=== PATIENT | male | born 1980 | race Caucasian/White ===

== ENCOUNTER 2016-12-30 11:41 | Inpatient (IN) | payer BC ==
[~2016-12-30] VITALS: Ht 182.9 cm; Wt 103.8 kg
[2016-12-30] VITALS (24 sets, daily range): BP systolic 110–142; BP diastolic 70–108; PULSE 70–118; TEMP 36.6–37.1; O2SAT 93–97; Ht 182.9 cm; Wt 103.8 kg
[~2016-12-30 11:41] MED LIST: OXYC1TAB3 PO
[2016-12-30] MEDS ORDERED: ONDANSETRON INJ 2 MG/ML 2 ML VIAL IV STA (11:57)
[2016-12-30] MEDS ORDERED: SODIUM CHLORIDE 0.9% 1000ML 1,000 ML IV STA (11:57)
[2016-12-30] MEDS ORDERED: ASPIRIN 325 MG ECTAB PO STA (11:57)
[2016-12-30] MEDS ORDERED: MIDAZOLAM HCL 1 MG/ML 2ML VIAL ONE ×4 (11:59→14:29)
[2016-12-30] MEDS ORDERED: HEPARIN SOD (PORCINE) 1000 UNIT/ML 10 ML VIAL ONE (11:59)
[2016-12-30] MEDS ORDERED: NiCARDipine HCL INJ 2.5 MG/ML 10 ML AMP ONE (11:59)
[2016-12-30] MEDS ORDERED: FENTANYL CITRATE INJ 50 MCG/1 ML 2 ML VIAL ONE ×3 (11:59→13:43)
[2016-12-30] MEDS ORDERED: NITROGLYCERIN OINT 2% 1GM PACKET EXT ONE (12:00)
[2016-12-30] MEDS ORDERED: NITROGLYCERIN/D5W 100MCG/ML 20ML SYR ONE (12:00)
--- NOTE | 2016-12-30 12:01 | EMERGENCY ROOM VISIT NOTE ---
History Report prepared by Deepika: Marylou Camacho Under the Supervision of: Dr. Keisha Mcarthur D.O. First contact with patient: 11:42 Stated Complaint: heart alert History of Present Illness The patient is a 36 year old male who presents to the Emergency Room with complaints of constant chest burning and tightness beginning this morning. The patient states that 4 days ago he felt chest pain and tightness for 6 hours and he thought that it was indigestion. He notes that he has a history of acid reflux and took a Jeannette without relief of his symptoms. The patient reports that the pain went away after about 6 hours but that night he notes that he felt feverish. Today the patient states that he is feeling chest pain and tightness again that is similar to his pain 4 days ago. He complains of left arm numbness , lightheadedness, back tightness, nausea, and some shortness of breath that he believes is related to his anxiety. He denies any neck pain, recent illness, cough, cold, and fever. The patient notes that he had back tightness and a muscle spasm yesterday and he reports that he was seen for his pain and received shots that relieved his pain. The patient reports no family or personal history of cardiac issues. Denies recent trauma. No recent URI sx or other illness. Source of History: patient Onset: this morning Position: chest Quality: burning, other (tightness) Timing: constant Associated Symptoms: + SOB, + nausea, No fevers, No cough, No neck pain Note: He complains of left arm numbness, lightheadedness, back tightness. He denies any recent illness and cold. Review of Systems See HPI for pertinent positives & negatives. A total of 10 systems reviewed and were otherwise negative. Past Medical & Surgical Medical Problems: (1) Acute myocardial infarction involving left anterior descending (LAD) coronary artery (2) Acute myocardial infarction involving right coronary artery Family History Diabetes mellitus FHx: cancer Social History Marital Status: single Occupation Status: unemployed Current/Historical Medications Scheduled Aspirin (Aspirin EC Low Dose), 81 MG PO QAM Atorvastatin (Atorvastatin Calcium), 80 MG PO QAM Lisinopril (Lisinopril), 5 MG PO QAM Metoprolol Succinate (Metoprolol Succinate ER), 200 MG PO QAM Pantoprazole (Pantoprazole Sodium), 40 MG PO DAILY Rivaroxaban (Xarelto), 20 MG PO DAILY Spironolactone (Spironolactone), 25 MG PO QAM Ticagrelor (Brilinta), 90 MG PO BID Scheduled PRN Nitroglycerin (Nitrostat), 0.4 MG SL UD PRN for Chest Pain Allergies Coded Allergies: No Known Allergies (Unverified , NONE, 04/18/09) Physical Exam Vital Signs Date Time Temp Pulse Resp B/P (MAP) Pulse Ox O2 Delivery O2 Flow Rate FiO2 12/30/16 14:50 112 14 149/86 98 Room Air 12/30/16 14:35 108 10 135/91 97 Mask 6 12/30/16 12:10 99 18 139/93 98 Room Air 12/30/16 12:05 100 14 145/92 96 Room Air 12/30/16 11:56 98 Room Air 12/30/16 11:56 98 Room Air 12/30/16 11:56 36.5 99 18 146/92 97 Room Air 12/30/16 11:55 104 Physical Exam GENERAL: alert, well appearing, well nourished, no distress, non-toxic EYE EXAM: normal conjunctiva, PERRL and EOM's grossly intact OROPHARYNX: no exudate, no erythema, lips, buccal mucosa, and tongue normal and mucous membranes are moist NECK: supple, no nuchal rigidity, no adenopathy, non-tender LUNGS: Clear to auscultation. Normal chest wall mechanics HEART: no murmurs, S1 normal and S2 normal ABDOMEN: abdomen soft, non-tender, normo-active bowel sounds, no masses, no rebound or guarding. BACK: Back is symmetrical on inspection and there is no deformity, no midline tenderness, no CVA tenderness. SKIN: no rashes and no bruising UPPER EXTREMITIES: upper extremities are grossly normal. LOWER EXTREMITIES: No pitting edema. NEURO EXAM: Normal sensorium, cranial nerves II-XII grossly intact, normal speech, no gross weakness of arms, no gross weakness of legs. Medical Decision & Procedures ER Provider Diagnostic Interpretation: Radiology results have been interpreted by the radiologist and reviewed by me. CHEST ONE VIEW PORTABLE FINDINGS: Low lung volumes. Mild elevation of the right hemidiaphragm. The lungs are clear. No pleural effusions. No pneumothorax. The heart is borderline enlarged. IMPRESSION: Borderline enlargement of the cardiac silhouette. This could be due to the low lung volumes. Electronically signed by: Rodger Morales M.D. 12/30/2016 12:14 PM Dictated Date/Time: 12/30/2016 12:13 PM Laboratory Results Test 12/30/16 11:40 12/30/16 11:56 12/30/16 11:58 12/30/16 14:02 Prothrombin Time 11.4 SECONDS (9.0-12.0) Prothromb Time International Ratio 1.1 (0.9-1.1) Activated Partial Thromboplast Time 26.5 SECONDS (21.0-31.0) Partial Thromboplastin Ratio 1.0 Bedside Hemoglobin 16.0 g/dl (14.0-18.0) Bedside Hematocrit 47 % (42-52) Bedside Sodium 140 mEq/L (135-144) Bedside Potassium 4.4 mEq/L (3.3-5.0) Bedside Chloride 104 mEq/L (101-112) Bedside Total CO2 25 mEq/l (24-31) Bedside Blood Urea Nitrogen 17 mg/dl (7-18) Bedside Creatinine 1.0 mg/dl (0.6-1.3) Bedside Glucose (other) 128 mg/dl (70-99) Bedside Ionized Calcium (Myriam) 1.02 mmol/l (1.12-1.32) Bedside Troponin I 5.630 ng/ml (0-0.045) Kaolin Activated Coagulation Time 301 SECONDS (94-140) Date/Time Source Procedure Growth Status 12/30/16 00:00 Nasal MRSA DNA Surveillance Screen - Final Specimen Negative for MRSA by DNA Probe Complete Laboratory results per my review. Medications Administered Medications (Trade) Dose Ordered Sig/Jeremy Route Start Time Stop Time Status Last Admin Dose Admin Heparin Sodium (Porcine) (Heparin Iv Bolus) 10,000 unit STK-MED ONCE .ROUTE 12/30/16 11:59 12/30/16 12:00 DC 12/30/16 11:59 10,000 UNIT Fentanyl Citrate (Fentanyl Inj) 100 mcg STK-MED ONCE .ROUTE 12/30/16 11:59 12/30/16 12:00 DC 12/30/16 11:59 100 MCG Midazolam HCl (Versed Inj) 2 mg STK-MED ONCE .ROUTE 12/30/16 11:59 12/30/16 12:00 DC 12/30/16 11:59 2 MG Sodium Chloride 1,000 ml @ 125 mls/hr Q8H STAT IV 12/30/16 11:57 12/31/16 12:26 DC 12/30/16 11:57 125 MLS/HR Ondansetron HCl (Zofran Inj) 4 mg NOW STAT IV 12/30/16 11:57 12/30/16 12:02 DC 12/30/16 11:57 4 MG Heparin Sodium (Porcine) (Heparin Iv Bolus) 10,000 unit STK-MED ONCE .ROUTE 12/30/16 12:31 12/30/16 12:32 DC 12/30/16 12:31 10,000 UNIT Fentanyl Citrate (Fentanyl Inj) 100 mcg STK-MED ONCE .ROUTE 12/30/16 12:35 12/30/16 12:36 DC 12/30/16 12:35 100 MCG Midazolam HCl (Versed Inj) 2 mg STK-MED ONCE .ROUTE 12/30/16 12:36 12/30/16 12:37 DC 12/30/16 12:36 2 MG Eptifibatide (Integrilin Inj) 20 mg STK-MED ONCE IV 12/30/16 12:45 12/30/16 12:46 DC 12/30/16 12:45 20 MG Eptifibatide (Integrilin Inj) 20 mg STK-MED ONCE IV 12/30/16 12:45 12/30/16 12:46 DC 12/30/16 12:45 20 MG Eptifibatide (Integrilin Inj) 75 mg STK-MED ONCE IV 12/30/16 12:46 12/30/16 12:47 DC 12/30/16 12:46 75 MG Metoprolol Tartrate (Lopressor Iv) 5 mg STK-MED ONCE .ROUTE 12/30/16 13:06 12/30/16 13:07 DC 12/30/16 13:06 5 MG Midazolam HCl (Versed Inj) 2 mg STK-MED ONCE .ROUTE 12/30/16 13:16 12/30/16 13:17 DC 12/30/16 13:16 2 MG Fentanyl Citrate (Fentanyl Inj) 100 mcg STK-MED ONCE .ROUTE 12/30/16 13:43 12/30/16 13:44 DC 12/30/16 13:43 100 MCG Nitroglycerin (Nitrostat Tab) 0.4 mg UD PRN SL 12/30/16 15:00 01/01/17 16:31 DC 12/30/16 20:38 0.4 MG Sodium Chloride 1,000 ml @ 100 mls/hr Q10H IV 12/30/16 15:00 12/31/16 12:26 DC 12/31/16 09:31 100 MLS/HR ECG Indication: chest pain Rate (beats per minute): 98 Rhythm: sinus rhythm Findings: ST elevation (V2-V6 and in Lead 2,3 and AVF), other (normal axis, normal intervals) ED Course 1142: The patient was evaluated in room A1. A complete history and physical exam was performed. 1157: Zofran Inj 4mg IV, Sodium Chloride 1000 ml @ 125 mls/hr IV. 1200: Nitroglycerin 1 inch EXT. 1204: I reevaluated the patient. The nursing staff confirmed that the patient received [address] Voss of Cardiology is at the patient's bedside. 1209: The patient will be going to the catheterization lab. Dr. Voss will evaluate the patient for further management. 1215: Pt being transferred to color laboratory technician. Medical Decision Differential diagnosis: Etiologies such as cardiac ischemia, aortic dissection, pulmonary embolism, pneumonia, pneumothorax, musculoskeletal, infections, pericarditis, myocarditis , esophageal rupture, gastrointestinal, as well as others were entertained. Pt with obvious EKG changes and concerning for for ACS. Heart alert called based on EMS report and EKG. Pt with stable VS here and aware of concern for STEMI. Dr. Voss to bedside for evaluation and pt taken to color laboratory technician. Consults Time Called: 1205 Consulting Physician: Dr. Voss - Cardiology Returned Call: 1209 The patient will be going to the catheterization lab. Dr. Voss will evaluate the patient for further management. Impression Primary Impression: STEMI (ST elevation myocardial infarction) Additional Impression: Chest pain Critical Care I have personally spent greater than 35 minutes of critical care time in the direct management of this patient. This includes bedside care, interpretation of diagnostic studies, and testing, discussion with consultants, patient, and family members, and other required patient management activities. This 35 minutes is in excess of all separately billable procedures. Involved system - cardiovascular Scribe Attestation The scribe's documentation has been prepared under my direction and personally reviewed by me in its entirety. I confirm that the note above accurately reflects all work, treatment, procedures, and medical decision making performed by me. Departure Information Dispostion Being Evaluated By Hospitalist Prescriptions Pantoprazole (Pantoprazole Sodium) 40 Mg Tab 40 MG PO DAILY for 90 Days, #90 TAB 3 Refills Prov: David Voss M.D. 01/01/17 Aspirin (Aspirin EC Low Dose) 81 Mg Ectab 81 MG PO QAM for 90 Days, #90 3 Refills Prov: David Voss M.D. 01/01/17 Spironolactone (Spironolactone) 25 Mg Tab 25 MG PO QAM for 90 Days, #90 TAB 3 Refills Prov: David Voss M.D. 01/01/17 Nitroglycerin (Nitrostat) 0.4 Mg/1 Tab Subl 0.4 MG SL UD Y for Chest Pain for 25 Days Prov: David Voss M.D. 01/01/17 Metoprolol Succinate (Metoprolol Succinate ER) 50 Mg Tabcr 200 MG PO QAM for 90 Days, #90 3 Refills Prov: David Voss M.D. 01/01/17 Lisinopril (Lisinopril) 5 Mg Tab 5 MG PO QAM for 90 Days, #90 TAB 3 Refills Prov: David Voss M.D. 01/01/17 Atorvastatin (Atorvastatin Calcium) 40 Mg Tab 80 MG PO QAM for 90 Days, #90 TAB 3 Refills Prov: David Voss M.D. 01/01/17 Ticagrelor (Brilinta) 90 Mg Tab 90 MG PO BID for 90 Days, #180 TAB 3 Refills Prov: David Voss M.D. 01/01/17 Rivaroxaban (Xarelto) 20 Mg Tab 20 MG PO DAILY for 90 Days, #90 TAB 3 Refills Prov: David Voss M.D. 01/01/17 Problem Qualifiers Primary Impression: STEMI (ST elevation myocardial infarction) Involved coronary artery: LAD coronary artery Qualified Codes: I21.02 - ST elevation (STEMI) myocardial infarction involving left anterior descending coronary artery Additional Impression: Chest pain Chest pain type: chest pain due to myocardial ischemia Ischemic chest pain type: unstable angina pectoris Qualified Codes: I20.0 - Unstable angina
[2016-12-30 12:09] LABS: ISTAT IONIZED CALCIUM 1.02 mmol/l (1.12-1.32)
[2016-12-30 12:10] LABS: HEMATOCRIT 45.8 % (42-52); MEAN CELL VOLUME 90.2 fL (80-100); MEAN CORPUSCULAR HEMOGLOBIN 32.9 pg (25-34); MEAN CORPUSCULAR HGB CONC 36.5 g/dl (32-36); MEAN PLATELET VOLUME 11.3 fL (7.4-10.4); PLATELET COUNT 215 K/uL (130-400); RED BLOOD COUNT 5.08 M/uL (4.7-6.1)
--- NOTE | 2016-12-30 12:16 | DIAGNOSTIC IMAGING REPORT ---
CHEST ONE VIEW PORTABLE HISTORY: chest pain COMPARISON: None. FINDINGS: Low lung volumes. Mild elevation of the right hemidiaphragm. The lungs are clear. No pleural effusions. No pneumothorax. The heart is borderline enlarged. IMPRESSION: Borderline enlargement of the cardiac silhouette. This could be due to the low lung volumes. Electronically signed by: Rodger Morales M.D. 12/30/2016 12:14 PM Dictated Date/Time: 12/30/2016 12:13 PM
[2016-12-30 12:19] LABS: INR 1.1 (0.9-1.1); PROTHROMBIN TIME (PATIENT) 11.4 SECONDS (9.0-12.0)
[2016-12-30 12:27] LABS: BUN/CREATININE RATIO 13.3 (10-20); CALCIUM 9.1 mg/dl (8.5-10.1); CREATININE 1.1 mg/dl (0.60-1.40); POTASSIUM 3.5 mmol/L (3.5-5.1)
[2016-12-30] MEDS: HEPARIN SOD (PORCINE) 1000 UNIT/ML 10 ML VIAL ONE (12:31)
[2016-12-30] MEDS ORDERED: EPTIFIBATIDE 2 MG/ML 10 ML VIAL IV ONE ×2 (12:45)
[2016-12-30] MEDS ORDERED: EPTIFIBATIDE 0.75 MG/ML 75MG VIAL IV ONE (12:46)
[2016-12-30] MEDS ORDERED: METOPROLOL TARTRATE 1 MG/ML VIAL ONE ×2 (13:06→20:53)
[2016-12-30] MEDS ORDERED: LIDOCAINE/EPINEPHRINE 1% 20 ML VIAL ONE (14:28)
[2016-12-30] MEDS ORDERED: TICAGRELOR 90 MG TAB PO ONE (14:38)
--- NOTE | 2016-12-30 14:44 | Procedure Note ---
Pre-Mod Sedation Assessment General Date of Moderate Sedation: Dec 30, 2016. Vital Signs: Vital Signs Past 12 Hours Date Time Temp Pulse Resp B/P (MAP) Pulse Ox O2 Delivery O2 Flow Rate FiO2 12/30/16 14:35 108 10 135/91 97 Mask 6 12/30/16 12:10 99 18 139/93 98 Room Air 12/30/16 12:05 100 14 145/92 96 Room Air 12/30/16 11:56 98 Room Air 12/30/16 11:56 98 Room Air 12/30/16 11:56 36.5 99 18 146/92 97 Room Air 12/30/16 11:55 104 Review Cardiovascular: regular rate, rhythm, no edema, no gallop, no JVD, no murmur, normal peripheral pulses Abdomen: non tender, soft Lungs: lungs clear Pre-Sedation Airway Assessment Oral Cavity: WNL Able to Visualize Vocal Cords: No Short Thick Neck: No Hx of Sleep Apnea: No Smoking Status: Never Smoker Mallampati Classification: Class III Procedure Planning Contraindications-for Mod Sed: None Yes Notes The planned sedation has been discussed with the patient and consent obtained. I have identified the patient, determined the appropriateness of sedation and have assessed the patient immediately prior to the procedure. All medicine(s) and interventions are by my order.
--- NOTE | 2016-12-30 14:45 | Procedure Note ---
Post-Mod Sedation Assessment General Date of Moderate Sedation Dec 30, 2016. Vital Signs: Vital Signs Past 12 Hours Date Time Temp Pulse Resp B/P (MAP) Pulse Ox O2 Delivery O2 Flow Rate FiO2 12/30/16 14:35 108 10 135/91 97 Mask 6 12/30/16 12:10 99 18 139/93 98 Room Air 12/30/16 12:05 100 14 145/92 96 Room Air 12/30/16 11:56 98 Room Air 12/30/16 11:56 98 Room Air 12/30/16 11:56 36.5 99 18 146/92 97 Room Air 12/30/16 11:55 104 Review - Discharge Criteria Vital Signs Stable: Yes Alert/Oriented/Conversant: Yes Returned to Baseline Mental St: Yes Nausea Absent/Minimal: Yes Pain/Discomfort/Absent/Minimal: Yes Normal/Baseline Respirations: Yes Active Bleeding?: No Pt Received D/C Instructions: N/A Prescriptions Given: None Specific Proced. D/C Criteria Distal Pulses Present (Cardiac: Yes Groin site assessed-Card Cath: Yes Voided Prior To Discharge: N/A Discharged Patients Adult Escort/Transportation: N/A
[2016-12-30] MEDS ORDERED: ONDANSETRON INJ 8 MG in DEXTROSE 5% 50ML 50 ML IV PRN (15:00)
[2016-12-30] MEDS ORDERED: ONDANSETRON INJ 2 MG/ML 2 ML VIAL IV PRN (15:00)
[2016-12-30] MEDS ORDERED: NITROGLYCERIN 0.4 MG SL PER TAB CHARGE SL PRN (15:00)
[2016-12-30] MEDS ORDERED: ALUMINUM/MAGNESIUM/SIMETH (MAALOX MAX) 30 ML UDC PO PRN (15:00)
[2016-12-30] MEDS ORDERED: ACETAMINOPHEN 325 MG TAB PO PRN (15:00)
[2016-12-30] MEDS ORDERED: EPTIFIBATIDE BOLUS / DRIP IV ONE (15:00)
[2016-12-30] MEDS ORDERED: ATROPINE SULFATE 0.1 MG/ML 5ML SYR IV PRN (15:00)
[2016-12-30] MEDS ORDERED: LORAZEPAM INJ 0.5 MG in SYRINGE 0.75 ML IV PRN (15:00)
[2016-12-30] MEDS ORDERED: LORAZEPAM 1 MG TAB PO PRN (15:00)
[2016-12-30] MEDS ORDERED: MoRPHine SULFATE 2 MG/ML CARP IV PRN (15:00)
[2016-12-30] MEDS ORDERED: MAGNESIUM HYDROXIDE SUSP 30 ML UDC PO PRN (15:00)
[2016-12-30] MEDS ORDERED: LORAZEPAM 2 MG/ML 1 ML VIAL IV PRN ×2 (15:30→21:00)
[2016-12-30] MEDS ORDERED: ATORVASTATIN 40 MG TAB PO ONE (16:00)
[2016-12-30] MEDS: SODIUM CHLORIDE 0.9% 1000ML 1,000 ML IV SCH ×2 (16:01→22:54)
[2016-12-30] MEDS: EPTIFIBATIDE INJ 75 MG PREMIXED IV SCH ×2 (16:02→21:49)
[2016-12-30 16:17] LABS: BASO % 0.2 %; BASO ABS # 0.02 K/uL (0-0.2); EOS % 0.3 %; HEMATOCRIT 46.7 % (42-52); IG% 0.3 %; LYMPH ABS # 1.78 K/uL (1.2-3.4); MEAN CELL VOLUME 90.3 fL (80-100); MEAN CORPUSCULAR HEMOGLOBIN 30.8 pg (25-34); MEAN PLATELET VOLUME 10.9 fL (7.4-10.4); MONO % 12.1 %; NEUT % 71.1 %; PLATELET COUNT 222 K/uL (130-400); RED BLOOD COUNT 5.17 M/uL (4.7-6.1); WHITE BLOOD COUNT 11.13 K/uL (4.8-10.8)
--- NOTE | 2016-12-30 16:22 | HISTORY & PHYSICAL EXAMINATION ---
DATE OF ADMISSION: 12/30/2016 PRIMARY PHYSICIAN: Joseph Turner M.D. ADMITTING AND ATTENDING PHYSICIAN: David Voss M.D. HISTORY OF PRESENT ILLNESS: The patient is a 36-year-old white male. He denies any history of heart disease. No history of hypertension, diabetes mellitus, or dyslipidemia. No family history of premature coronary artery disease. He is a nonsmoker. He was in his usual state of health until Sunday12/26/2016. He developed chest pressure radiating into his back. This would be associated with nausea and weakness. Every day thereafter he would have similar episodes. The episodes could last for 4-5 hours. He denies any associated dyspnea. He denies any increase in the intensity with exertion. However, he felt very fatigued and weak since 12/26/2016. This morning at approximately 5:00 a.m. he had a reoccurrence of the discomfort. It was more severe than previously. He ultimately called EMS. Electrocardiogram was performed in the field and revealed evidence of acute anterior and inferior injury. Based on his electrocardiogram, a heart alert was called. The patient was given sublingual nitroglycerin and 324 mg of aspirin. He was evaluated at [facility] Department by Dr. Keisha Mcarthur. He was evaluated by me in the Emergency Department. Following acquisition of informed consent for cardiac catheterization and PCI, he was brought to the cardiac catheterization laboratory. Arterial access was first established in the right radial artery. There was difficulty in passing the guidewire through the brachial artery. Angiography of the radial brachial artery revealed severe and diffuse spasm in the brachial artery. A 6-Frisian sheath was then inserted in the right femoral artery. Coronary angiography was then performed. This revealed a total mid LAD occlusion. Balloon angioplasty was then performed through to the mid LAD. On initial angiography there is BETSY 0 flow. Following balloon angioplasty, BETSY 3 flow was established in the LAD. There was evidence of diffuse disease throughout the mid LAD. A total of 3 stents were then deployed in the LAD. Medtronic Resolute 2.25 x 30 mm, 2.25 x 26 mm, and 2.75 x 22 mm stents. They were deployed in an overlapping fashion. The 2.75 x 22 stent was the most proximal stent. The 2.25 x 30 mm stent was the most distal stent. The stented region was post-dilated with a 3 mm noncompliant balloon. Following intervention to the LAD, the patient's electrocardiographic changes markedly improved. The ST segment depressions decreased. His chest discomfort almost completely resolved. He was hemodynamically stable. No arrhythmias. Right coronary angiography was then performed. This revealed a subtotal proximal PDA stenosis. BETSY 1 flow. Following PTCA, BETSY 3 flow was present in the PDA. A 2.25 x 22 mm Resolute drug-eluting stent was then deployed in the PDA. There is BETSY 3 flow in the PDA following stent deployment. Following intervention to the PDA the patient had no complaints of any chest or back discomfort. Left coronary angiography revealed the left circumflex to have mild atherosclerotic disease. The residual stenosis at the stent sites in the LAD and the RCA was 0-10%. There was no evidence of dissection, thrombus, perforation, or distal embolic event. BETSY 3 flow was present in both the LAD and the PDA following intervention. Left ventricular angiography revealed diaphragmatic hypokinesis. The apex was akinetic. The anterolateral segment contracted normally. Anterobasal and posterobasal segments contracted normally. The estimated left ventricle ejection fraction was 45%. No mitral regurgitation was noted. Left ventricular angiography was performed with a hand injection of contrast dye. Right femoral angiography was performed under fluoroscopy. The images were not stored. It revealed the sheath to be present in the right common femoral artery. No obstructive disease was noted in the femoral artery and its proximal branches. No disease was noted in the right external iliac artery. PAST MEDICAL HISTORY: Gastroesophageal reflux disease. MEDICATIONS AT TIME OF ADMISSION: None. ALLERGIES: No known drug allergies. FAMILY HISTORY: He denies any family history of coronary artery disease in his parents or his brother. SOCIAL HISTORY: He does not smoked cigarettes. Occasional use of alcohol. He works in [employer] at [employer]. He denies any drug use. REVIEW OF SYSTEMS: Ten point review of systems negative other than for above. He specifically denies any cerebrovascular or peripheral vascular complaints. No bleeding complaints. PHYSICAL EXAMINATION: GENERAL: In the Emergency Department, he was in moderate distress. VITAL SIGNS: Initial blood pressure was 149/84. Initial pulse was 84 beats per minute. His electrocardiogram revealed ST segment elevations in the inferior and anterior leads. EYES: Pupils equal and round. Anicteric. Conjunctivae normal. No xanthelasma. NECK: No jugular venous distension. Carotids 2/2 bilaterally. Normal upstroke. No bruits. LUNGS: Normal respiratory effort. Clear. No rales or wheezes. HEART: Regular rate and rhythm. S1, S2 normal. No S3 or S4. No murmur or rub. ABDOMEN: Soft. Nontender. No palpable masses or organomegaly. No bruits. EXTREMITIES: No pretibial edema. No cyanosis or clubbing. Radial pulses strongly palpable bilaterally. NEUROLOGICAL: Alert and oriented x3. Motor grossly intact. PSYCHIATRIC: Affect normal. DATA: Electrocardiogram revealed sinus rhythm. Inferior and anterior ST segment elevations. Chest x-ray revealed no evidence of pulmonary infiltrate or congestive heart failure. Both chest x-ray and electrocardiogram reviewed by me. Initial labs performed in the Emergency Department revealed WBC 11.10, hemoglobin 16.7, hematocrit 45.8, platelet count 215. INR 1.1. PTT 26.5. Metabolic profile with sodium 141, potassium 3.5, chloride 105, carbon dioxide 28, BUN 15, creatinine 1.10, random glucose 123. CK total was 172. Troponin I was 5.540. Activated clotting times during the procedure were 348, 224, and 301. ASSESSMENT: 1. Acute anterior and inferior myocardial infarction. Total mid LAD occlusion. Subtotal proximal PDA occlusion. Subsequent successful intervention to the LAD and PDA. Deployment of 3 drug-eluting stents in LAD. One drug-eluting stent in the PDA. No coronary, vascular, or cardiac complications evident thus far. Resolution of chest pain following successful coronary intervention. Marked improvement in ST segment elevations on the monitored leads following have perfusion of the LAD. 2. No evidence of congestive heart failure on exam or chest x-ray. The patient's left ventricular end diastolic pressure was elevated at 29 mmHg post intervention. 3. No ventricular arrhythmias noted thus far. 4. No obvious coronary artery disease risk factors. Suspected that he has dyslipidemia. His random glucose was mildly elevated. No history of diabetes mellitus. He is a nonsmoker. No family history of premature coronary artery disease. No history of hypertension. PLAN: 1. During the procedure, he was given intravenous heparin and Integrilin. Therapeutic activated clotting times were documented. 2. Following completion of procedure, he was given 180 mg loading dose of ticagrelor. He will be maintained on aspirin 81 mg daily and Ticagrelor 90 mg b.i.d. thereafter. 3. Metoprolol tartrate 25 mg b.i.d. Titrate as necessary to control heart rate and blood pressure. Prior to discharge will switch him to metoprolol succinate ER. 4. Afterload reduction with lisinopril. 5. Atorvastatin 80 mg today and then daily thereafter. 6. Check lipid profile, direct LDL, hemoglobin A1c. Serial cardiac enzymes and electrocardiograms. Post Integrilin CBC. Post procedure metabolic profile. 7. Echocardiogram on 12/31/2016 to further evaluate left ventricular systolic function. 8. Refer to cardiac rehabilitation. 9. Medical consultation and filament coil winder consultation. ADDENDUM: Hemostasis was obtained at the right radial catheterization site with application of a Revstr TR band. Hemostasis was obtained at the right femoral catheterization site with deployment of a 6-Frisian Star[employer] vascular closure system.
[2016-12-30 16:31] LABS: COMPLETE YES
--- NOTE | 2016-12-30 16:46 | Cardiac Catheterization ---
Procedure Note Procedure Date Dec 30, 2016. Pre-Procedure Diagnosis STEMI AUC Score 9 Post-Procedure Diagnosis Severe CAD, Successful PCI, Decreased LV Systolic Function, Elevated Intracardiac Pressures Procedure(s) Performed Coronary Angiography, Left Heart Cath, LV Angiography, PTCA, Drug Eluting Stent , Femoral Artery Angiography, Radial Artery Angiography Trade [employer] Coordinator Dr. Voss Knotter Hand(s) Laurie Hdez, RTR Estimated Blood Loss 50 ml Medication(s) Fentanyl, Heparin, Integrilin, Nicardipine (Intra-arterial and intracoronary), Versed, Lidocaine 1% 180 milligrams ticagrelor post PCI Summary of Findings Clinical indications: Evidence of acute inferior and anterior myocardial injury on electrocardiogram. ST segment elevations in the inferior and anterior leads. Catheterization site: 6 Sudanese slender glide sheath right radial artery. 6 Sudanese sheath right femoral artery. Catheters: 6 Sudanese EBU 3.75 guide catheter, 6 Sudanese JR4 diagnostic catheter, 6 Sudanese JR4 guide catheter, 6 Sudanese pigtail catheter. Interventional equipment: For LAD PCI : 6 Sudanese EBU 3.75 guide catheter, [place] guidewire, Medtronic Sprinter 2.0 x 12 millimeter balloon dilatation catheter, three Medtronic resolute drug eluting stents ( 2.25 x 30 millimeter, 2.25 x 26 millimeter, 2.75 x 22 millimeter) , Medtronic NC Euphora 3 X 15 mm noncompliant balloon. For RCA PCI: 6 Sudanese JR4 guide catheter,[place] guidewire subsequently exchanged for Whisper guidewire, Medtronic Sprinter 2 x 12 millimeter balloon dilatation catheter, Medtronic Resolute Integrity 2.25 x 22 millimeter drug-eluting stent. Protocol: The slender sheath was not inserted in the right radial artery. The standard 0.035 J-tip guidewire would not advance through the brachial artery. This was exchanged for a Glidewire which also would not traverse the brachial artery. The guidewire and catheter were removed. Angiography was performed through the sheath and revealed diffuse and extensive spasm in the brachial artery. Remainder procedure was performed through the 6 Sudanese right femoral arterial sheath. Following passage of the [place] guidewire through the mid LAD occlusion multiple balloon inflations were performed with the sprinter balloon. Intravenous heparin and Integrilin were administered prior to intervention. Balloon inflations were performed throughout the mid LAD. A total of 5 inflations were performed to a maximum pressure of 8 atmospheres and maximum duration of 10 seconds. The 2.25 x 30 millimeter drug-eluting stent was then deployed in the latter mid LAD atrial pressure of 9 atmospheres for 45 seconds. The 2.25 x 26 millimeter drug-eluting stent was deployed proximal to the 1st stent in overlapping fashion. Deployed at 13 atmospheres for 15 seconds. The 2.75 x 22 millimeter stent was deployed in the early mid LAD overlapping with the 2.25 x 26 millimeter stent. The 2.75 millimeter diameter stent was deployed at a pressure of 9 atmospheres for duration of 45 seconds. The stent delivery balloon was then reinflated to pressures of 14 and 16 atmospheres for duration of 10 seconds. The overlap site of the stents was post dilated with the stent delivery balloon to a pressure of 16 atmospheres for duration of 10 seconds. The mid stent was post dilated with the 2.75 millimeter stent delivery balloon to a pressure of 9 atmospheres for duration of 10 seconds. Noncompliant balloon inflations were then performed throughout the stented region. Three balloon inflations to maximum pressure of 20 atmospheres and maximum duration of 20 seconds. Follow-up angiography then performed from orthogonal projections with the guidewire in place and guidewire removed. Right coronary angiography was then performed. This revealed a subtotal proximal PDA stenosis. The [place] guidewire would not cross this occlusion. Was exchanged for a Whisper guide wire which easily crossed the lesion. Four balloon inflations were then performed with the sprinter balloon to the proximal to mid PDA to maximum pressure of 8 atmospheres and maximum duration of 15 seconds. The 2.25 x 22 millimeter resolute drug-eluting stent was deployed from the proximal to mid PDA at a pressure of 9 atmospheres for 45 seconds. Follow-up angiography was then performed from orthogonal projections. Following RCA PCI left ventricular angiography was performed from a 30 degree right anterior oblique projection using a hand injection of contrast dye. Right femoral arterial angiography was then performed through the femoral arterial sheath. A 6 Sudanese StarClose vascular closure system was then used to obtain hemostasis at the right femoral arterial catheterization site. Hemostasis was obtained at the right radial catheterization site with application of a FivetranumMobicious TR band. Following successful intervention to the LAD the patient's chest and back discomfort almost completely resolved. There was marked improvement in the ST segment elevations on the monitored leads. Following successful RCA PCI his chest and back discomfort had completely resolved. At the completion of the procedure he was hemodynamically and electrically stable. He had no complaints. Hemostasis: 6 Sudanese StarClose vascular closure system right femoral arterial site. Terumo TR band right radial catheterization site. Complications: None Findings: Brachial artery angiography revealed diffuse spasm throughout the mid segment of the brachial artery. Fluoroscopy did not reveal coronary calcifications. The coronary circulation was right dominant. Left main coronary artery was a large caliber vessel giving rise to medium caliber left anterior descending and left circumflex coronary arteries. Left main had no obstructive disease. The proximal LAD had a 0-10 percent stenosis. The LAD then gave rise to a long medium caliber bifurcating diagonal artery which had a 20 percent ostial proximal stenosis. Following the origin of the diagonal the early mid LAD had a 20 percent stenosis. This was then followed by a total occlusion. BETSY 0 flow. Following PTCA to mid LAD BETSY 3 flow. Following PTCA there is a 70 percent early mid LAD stenosis. The remainder of the mid LAD had diffuse 50-70 percent luminal diameter narrowing. Following stent deployment residual stenosis in the mid LAD at the stent site was 0-10 percent. There is a step-up at the proximal border stents and step-down at the distal border of the stent. No dissection, thrombus, perforation, or distal embolic event. The distal LAD was a very small caliber vessel. It gave rise to 3 very small caliber apical branches. BETSY 3 flow was present throughout the LAD and all of its branches following coronary intervention. The mid left circumflex had 30 percent stenosis. The mid circumflex gave rise to a long very small caliber 1st marginal artery. The latter mid circumflex had 30 percent stenosis. It gave rise to a long small caliber 2nd marginal artery and then to a little long small caliber 3rd marginal artery. The 3rd marginal had an ostial 30 percent stenosis. The distal circumflex gave rise to a very small caliber 4th marginal artery which had an ostial and proximal 20 percent stenosis. The right coronary artery was a medium caliber vessel. Proximal segment was 0-10 percent stenosis. Mid segment with 30 percent stenosis. Distal RCA with diffuse 10-20 percent stenoses. The distal RCA gave rise to a small caliber posterior descending artery which had a subtotal proximal occlusion. It gave rise to a small caliber posterolateral artery which had 0-10 percent stenoses. Following PTCA to the PDA BETSY 2 flow was established. Following stent deployment BETSY 3 flow in the PDA. The residual stenosis at the stent site was 0-10 percent. There was no evidence of dissection, thrombus, perforation, or distal embolic event. Left ventricular angiography performed from the 30 degree right anterior oblique projection using a hand injection of contrast dye revealed an estimated overall LV ejection fraction of 45 percent. There was apical akinesis. Diaphragmatic hypokinesis. The other LV segments contracted normally. No significant mitral regurgitation was noted. Right femoral arterial angiography revealed the sheath to be present in the right common femoral artery. There was no obstructive disease in the femoral artery or proximal segments of its profunda and superficial branches. No atherosclerotic disease noted in right external iliac artery. Plan: The patient was to be admitted to the intensive care unit. He was given a loading dose of Brilinta 180 milligrams post PCI. Will remain on intravenous Integrilin for 18 hours. He should remain on dual antiplatelet therapy for at least 1 year. Aspirin therapy indefinitely. Will be started on beta-abdi and CALDERON-inhibitor therapy. He will be started on statin therapy. Lipid profile and hemoglobin A1c will be checked. Post PCI CBC and metabolic profile. Serial electrocardiograms. Serial cardiac enzymes. Echocardiogram to further assess left ventricular wall motion. Medical and Intensive medicine consultations. Refer patient to cardiac rehabilitation. . Hemodynamics Rest Ao: 118/86/103 mm Hg Final Ao: 103/83/98 mm Hg LV: 109/29 mm Hg Recommendations Medical therapy and/or Counseling, PCI without planned CABG Specimens None Radiation Exposure (mGy) 4933 Contrast (mls) 505 ml Visipaque Fluids (cc crystalloids) 280 ml Drains none Anesthesia Intravenous Versed and fentanyl. Lidocaine 1 percent for local. Procedural Complication(s) None Disposition ICU ACC Data Cardiac Status Clinical evaluation leading to the procedure CAD Presntation: STEMI STEMI or Non-STEMI: Thrombolytics: No Heart Failure: NYHA Class: CCS IV Cardiogenic Shock w/in 24Hrs: No Cardiac Arrest w/in 24Hrs: No Imaging studies past 6 months: No Stress studies past 6 months: No Standard Exercise Stress Test: No Stress Echocardiogram: No Stress Testing w/SPECT MPI: No Cardiac CTA: No Coronary Anatomy Dominant: Right Left Main (% Stenosis): Normal LAD (% Stenosis): Proximal (0-10), Mid (20,100) D1 (% Stenosis): Ostial (20), Proximal (20) Circumflex (% Stenosis): Mid (30,30), Distal (10-20) OM1 (% Stenosis): Normal OM2 (% Stenosis): Normal OM3 (% Stenosis): Ostial (30) RCA (% Stenosis): Proximal (0-10), Mid (30), Distal (10-20) R PDA (% Stenosis): Proximal (99), Mid (10-30), Distal (10-30) R PL1 (% Stenosis): Normal Left Ventricular Angiography EF (%): 45 Wall Motion: Inferior (Hypokinetic), Apical (Akinetic), Anterior (Normal) Mitral Regurgitation: None Diagnostic Physician's Name: David Voss M.D. Status: Emergency Closure Device Percutaneous Entry Location: Femoral Closure Device: StarClose Recommendations: Medical therapy and/or Counseling, PCI without planned CABG PCI Indication: Immediate PCI for STEMI First Noted: First EKG Reason For Delay in PCI: Difficult vascular access Lesion Segment Name: Mid LAD Culprit Artery: Yes Stenosis Prior to Rx (%): 100 Chronic Total Occlusion: No IVUS: No FFR: No Pre-Procedure BETSY Flow: 0 Previously Treated Lesion: No Lesion Complexity: High/C Lesion Length (mm): 60 Thrombus Present: Yes Bifurcation Lesion: No Guidewire Across Lesion: Yes Guidewire: Stenosis Post-Procedure (%): 0-10 Post-Procedure BETSY Flow: 3 Device(s) Deployed: Yes Type of Device(s): Medtronic Resolute 2.75 x 22 millimeter, 2.25 x 26 millimeter, and 2.25 x 30 millimeter drug-eluting stents. Post dilated with 3 millimeter diameter noncompliant balloon. Lesion #2 Segment Name: Proximal right PDA Culprit Artery: Yes Stenosis Prior to Rx (%): 99 Chronic Total Occlusion: No IVUS: No FFR: No Pre-Procedure BETSY Flow: 1 Previously Treated Lesion: No Lesion Complexity: Non-High/Non-C Lesion Length (mm): 15 Thrombus Present: Yes Bifurcation Lesion: No Guidewire Across Lesion: Yes Guidewire: Post-Procedure BETSY Flow: 3 Device(s) Deployed: Yes Type of Device(s): Medtronic Resolute 2.25 x 22 millimeter NANCY Intraprocedure Events Significant Dissection: No Perforation: No
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
[2016-12-30 17:43] LABS: ALT/SGPT 127 U/L (12-78); AST/SGOT 396 U/L (15-37); BLOOD UREA NITROGEN 12 mg/dl (7-18); BUN/CREATININE RATIO 12.6 (10-20); CALCIUM 8.3 mg/dl (8.5-10.1); CARBON DIOXIDE 29 mmol/L (21-32); CHLORIDE 105 mmol/L (98-107); CREATININE 0.94 mg/dl (0.60-1.40); GLUCOSE 113 mg/dl (70-99); MAGNESIUM 2.4 mg/dl (1.8-2.4); POTASSIUM 3.6 mmol/L (3.5-5.1); SODIUM 141 mmol/L (136-145)
[2016-12-30 17:53] LABS: ALB/GLOB RATIO 0.8 (0.9-2); ALKALINE PHOSPHATASE 43 U/L (45-117); CHOLESTEROL 207 mg/dl (0-200); CHOLESTEROL/HDL RATIO 7.4; CKMB/CK RATIO 4.4 (0-3.0); HDL CHOLESTEROL 28 mg/dl; TRIGLYCERIDES 168 mg/dl (0-150); VERY LOW DENSITY LIPOPROT CALC 34 mg/dl
[2016-12-30] MEDS ORDERED: NURSING VERBAL MED ORDER ONE ×2 (19:00→21:00)
[2016-12-30] MEDS ORDERED: METOPROLOL TARTRATE 25 MG TAB PO SCH ×2 (19:10→21:00)
[2016-12-30] MEDS ORDERED: METOPROLOL TARTRATE 50 MG TAB PO SCH (19:15)
[2016-12-30] MEDS ORDERED: POTASSIUM CHLORIDE 20 MEQ TABCR PO SCH (19:15)
[2016-12-30] MEDS: TICAGRELOR 90 MG TAB PO SCH (19:47)
[2016-12-30] MEDS ORDERED: LORAZEPAM INJ 1 MG in SYRINGE 0.5 ML IV PRN (21:00)
[2016-12-30] MEDS: METOPROLOL TARTRATE 1 MG/ML VIAL IV SCH ×2 (21:00→21:30)
--- NOTE | 2016-12-30 21:19 | Medical Consult ---
Consultation Date of Consultation: Dec 30, 2016. Attending Physician: David Voss M.D. Reason for Consultation: medical management History of Present Illness Pt is a 36 yo male with hx of obesity and ?MAYA who presents to ER with what he felt to be more of a chest pressure that he attributed to reflux that has been on and off for past few days but was more severe this AM. Pt states also having associated numbness down left arm. No shortness of breath, severe chest pain, diaphoresis, abd pain, palpitations, N/V/D. Upon arrival to ER was noted to have anterior and inferior ND and underwent cardiac catherization with 4 NANCY employed, 3 in LAD and 1 in PDA. Chest pain resolved and pt brought to ICU for further observation. Pt consulted to our services for medical management. Past Medical/Surgical History Medical Problems: (1) Chest pain Status: Acute (2) STEMI (ST elevation myocardial infarction) Status: Acute Family History No cardiac hx Social History Smoking Status: Never Smoker Smokeless Tobacco Use: No Alcohol Use: socially Marital Status: single Occupation Status: unemployed Allergies Coded Allergies: No Known Allergies (Unverified , NONE, 04/18/09) Current Inpatient Medications Current Inpatient Medications Medications (Trade) Dose Ordered Sig/Jeremy Route Start Time Stop Time Status Last Admin Dose Admin Nitroglycerin (Nitrostat Tab) 0.4 mg UD PRN SL 12/30/16 15:00 01/29/17 14:59 12/30/16 20:38 0.4 MG Sodium Chloride 1,000 ml @ 100 mls/hr Q10H IV 12/30/16 15:00 01/29/17 14:59 12/30/16 16:01 100 MLS/HR Atropine Sulfate (Atropine Sulfate 0.1MG/Ml Inj) 0.5 mg ONE PRN IV 12/30/16 15:00 01/29/17 14:59 Ondansetron HCl (Zofran Inj) 4 mg Q6H PRN IV 12/30/16 15:00 01/29/17 14:59 Ondansetron HCl 8 mg/Dextrose 54 ml @ 200 mls/hr Q6H PRN IV 12/30/16 15:00 01/29/17 14:59 Aspirin (Ecotrin Tab) 81 mg QAM PO 12/31/16 09:00 01/30/17 08:59 Atorvastatin Calcium (Lipitor Tab) 80 mg QAM PO 12/31/16 09:00 01/30/17 08:59 Lisinopril (Zestril Tab) 5 mg QAM PO 12/31/16 09:00 01/30/17 08:59 Acetaminophen (Tylenol Tab) 650 mg Q4H PRN PO 12/30/16 15:00 01/29/17 14:59 Morphine Sulfate (MoRPHine SULFATE INJ) 2 mg Q5M PRN IV 12/30/16 15:00 01/13/17 14:59 Lorazepam (Ativan Tab) 1 mg Q6H PRN PO 12/30/16 15:00 01/29/17 14:59 Al Hydrox/Mg Hydrox/Simethicone (Maalox Max Susp) 15 ml Q4H PRN PO 12/30/16 15:00 01/29/17 14:59 Magnesium Hydroxide (Milk Of Magnesia Susp) 30 ml Q12H PRN PO 12/30/16 15:00 01/29/17 14:59 Pantoprazole Sodium (Protonix Tab) 40 mg DAILY PO 12/31/16 09:00 01/30/17 08:59 Lorazepam (Ativan Inj) 0.5 mg Q6H PRN IV 12/30/16 15:30 01/29/17 15:29 Eptifibatide 100 ml @ 19 mls/hr Q5H16M IV 12/30/16 15:30 12/31/16 07:00 12/30/16 16:02 19 MLS/HR Miscellaneous (Stop Order) 1 ea 0700 ONCE N/A 12/31/16 07:00 12/31/16 07:01 Ticagrelor (Brilinta Cap) 90 mg BID PO 12/30/16 21:00 01/29/17 20:59 12/30/16 19:47 90 MG Metoprolol Tartrate (Lopressor Tab) 50 mg BID PO 12/31/16 09:00 01/30/17 08:59 Future Hold Metoprolol Tartrate (Lopressor Tab) 25 mg BID PO 12/30/16 19:10 01/29/17 19:09 12/30/16 19:46 25 MG Metoprolol Tartrate (Lopressor Iv) 5 mg Q5M IV 12/30/16 21:00 12/30/16 21:11 Lorazepam 1 mg/ Syringe 1 ml @ 1 mls/min Q6H PRN IV 12/30/16 21:00 01/29/17 20:59 Lorazepam (Ativan Inj) 1 mg Q6H PRN IV 12/30/16 21:00 01/29/17 20:59 12/30/16 21:00 1 MG Review of Systems Constitutional: No fever, No chills, No sweats Respiratory: No cough, No sputum, No wheezing, No shortness of breath Cardiovascular: No chest pain, No orthopnea, No PND, No edema Abdomen: No pain, No nausea, No vomiting, No diarrhea Musculoskeletal: No joint pain, No muscle pain, No swelling, No calf pain Genitourinary - Male: + urinary urgency, No hematuria, No dysuria, No urinary frequency Psychiatric: No depression symptoms, No anhedonism Endocrine: No fatigue, No excessive thirst Integumentary: No rash, No itch Physical Exam Date Time Temp Pulse Resp B/P (MAP) Pulse Ox O2 Delivery O2 Flow Rate FiO2 12/30/16 21:00 106 121/70 12/30/16 20:34 99 15 128/70 (89) 95 Nasal Cannula 2.0 12/30/16 20:31 98 19 123/79 (94) 95 Room Air 12/30/16 20:01 103 13 121/90 (100) 94 Room Air 12/30/16 19:31 99 15 124/86 (99) 93 Room Air 12/30/16 19:30 108 19 115/80 (92) 95 Room Air 12/30/16 19:01 107 23 133/76 (95) 94 Room Air 12/30/16 18:31 84 18 116/72 (87) 94 Room Air 12/30/16 17:01 70 12 126/86 (99) 97 Room Air 12/30/16 16:32 104 15 119/89 (99) 97 Room Air 12/30/16 16:16 110 14 138/86 (103) 97 Room Air 12/30/16 16:01 97 15 134/95 (108) 96 Room Air 12/30/16 16:00 Room Air 12/30/16 15:46 111 18 131/91 (104) 93 Room Air 12/30/16 15:31 103 22 141/108 (119) 97 Room Air 12/30/16 15:19 37.1 118 16 142/88 96 Nasal Cannula 2.0 12/30/16 15:18 96 20 136/92 (107) 95 Room Air 12/30/16 15:10 36.6 85 18 142/88 (106) 95 Room Air 12/30/16 14:50 112 14 149/86 98 Room Air 12/30/16 14:35 108 10 135/91 97 Mask 6 12/30/16 12:10 99 18 139/93 98 Room Air 12/30/16 12:05 100 14 145/92 96 Room Air 12/30/16 11:56 98 Room Air 12/30/16 11:56 98 Room Air 12/30/16 11:56 36.5 99 18 146/92 97 Room Air 12/30/16 11:55 104 General Appearance: WD/WN, no apparent distress Head: normocephalic, atraumatic Neck: supple, no adenopathy, thyroid normal, no JVD Respiratory/Chest: chest non-tender, lungs clear, normal breath sounds, no respiratory distress Cardiovascular: regular rate, rhythm, no edema, no gallop, no JVD Abdomen/GI: normal bowel sounds, non tender, soft, no organomegaly Back: normal inspection, no CVA tenderness, no muscle spasm, normal range of motion Extremities/Musculoskelatal: normal inspection, no calf tenderness, normal capillary refill, no pedal edema Neurologic/Psych: alert, normal mood/affect, normal reflexes, oriented x 3 Skin: normal color, warm/dry, no rash Laboratory Results Last 24 Hours Test 12/30/16 11:40 12/30/16 11:56 12/30/16 11:58 12/30/16 12:57 White Blood Count 11.10 K/uL Red Blood Count 5.08 M/uL Hemoglobin 16.7 g/dL Hematocrit 45.8 % Mean Corpuscular Volume 90.2 fL Mean Corpuscular Hemoglobin 32.9 pg Mean Corpuscular Hemoglobin Concent 36.5 g/dl RDW Standard Deviation 41.6 fL RDW Coefficient of Variation 12.5 % Platelet Count 215 K/uL Mean Platelet Volume 11.3 fL Prothrombin Time 11.4 SECONDS Prothromb Time International Ratio 1.1 Activated Partial Thromboplast Time 26.5 SECONDS Partial Thromboplastin Ratio 1.0 Sodium Level 141 mmol/L Potassium Level 3.5 mmol/L Chloride Level 105 mmol/L Carbon Dioxide Level 28 mmol/L Anion Gap 8.0 mmol/L 16.0 mmol/L Blood Urea Nitrogen 15 mg/dl Creatinine 1.10 mg/dl Est Creatinine Clear Calc Drug Dose 121.7 ml/min Estimated GFR () 98.2 Estimated GFR (Non- 84.7 BUN/Creatinine Ratio 13.3 Random Glucose 123 mg/dl Calcium Level 9.1 mg/dl Total Creatine Kinase 172 U/L Troponin I 5.540 ng/ml Bedside Hemoglobin 16.0 g/dl Bedside Hematocrit 47 % Bedside Sodium 140 mEq/L Bedside Potassium 4.4 mEq/L Bedside Chloride 104 mEq/L Bedside Total CO2 25 mEq/l Bedside Blood Urea Nitrogen 17 mg/dl Bedside Creatinine 1.0 mg/dl Bedside Glucose (other) 128 mg/dl Bedside Ionized Calcium (Myriam) 1.02 mmol/l Bedside Troponin I 5.630 ng/ml Kaolin Activated Coagulation Time 348 SECONDS Test 12/30/16 13:54 12/30/16 14:02 12/30/16 16:00 Kaolin Activated Coagulation Time 224 SECONDS 301 SECONDS White Blood Count 11.13 K/uL Red Blood Count 5.17 M/uL Hemoglobin 15.9 g/dL Hematocrit 46.7 % Mean Corpuscular Volume 90.3 fL Mean Corpuscular Hemoglobin 30.8 pg Mean Corpuscular Hemoglobin Concent 34.0 g/dl Platelet Count 222 K/uL Mean Platelet Volume 10.9 fL Neutrophils (%) (Auto) 71.1 % Lymphocytes (%) (Auto) 16.0 % Monocytes (%) (Auto) 12.1 % Eosinophils (%) (Auto) 0.3 % Basophils (%) (Auto) 0.2 % Neutrophils # (Auto) 7.92 K/uL Lymphocytes # (Auto) 1.78 K/uL Monocytes # (Auto) 1.35 K/uL Eosinophils # (Auto) 0.03 K/uL Basophils # (Auto) 0.02 K/uL RDW Standard Deviation 41.1 fL RDW Coefficient of Variation 12.4 % Immature Granulocyte % (Auto) 0.3 % Immature Granulocyte # (Auto) 0.03 K/uL Sodium Level 141 mmol/L Potassium Level 3.6 mmol/L Chloride Level 105 mmol/L Carbon Dioxide Level 29 mmol/L Anion Gap 7.0 mmol/L Blood Urea Nitrogen 12 mg/dl Creatinine 0.94 mg/dl Est Creatinine Clear Calc Drug Dose 134.1 ml/min Estimated GFR () 118.7 Estimated GFR (Non- 102.4 BUN/Creatinine Ratio 12.6 Random Glucose 113 mg/dl Calcium Level 8.3 mg/dl Magnesium Level 2.4 mg/dl Total Bilirubin 1.2 mg/dl Direct Bilirubin 0.3 mg/dl Aspartate Amino Transf (AST/SGOT) 396 U/L Alanine Aminotransferase (ALT/SGPT) 127 U/L Alkaline Phosphatase 43 U/L Total Creatine Kinase 2847 U/L Creatine Kinase MB 125.3 ng/ml Creatine Kinase MB Ratio 4.4 Troponin I 157.000 ng/ml Total Protein 7.9 gm/dl Albumin 3.6 gm/dl Globulin 4.3 gm/dl Albumin/Globulin Ratio 0.8 Triglycerides Level 168 mg/dl Cholesterol Level 207 mg/dl HDL Cholesterol 28 mg/dl LDL Cholesterol Direct 156 mg/dl LDL Cholesterol, Calculated mg/dl VLDL Cholesterol, Calculated 34 mg/dl Cholesterol/HDL Ratio 7.4 Assessment & Plan Pt is a 36 yo male with chest discomfort which he related to more like a reflux sensation this AM presented to ER and noted to have STEMI Acute ND as evudenced by anterior and inferior myocardial infarction on initial EKG. 3 NANCY placed in LAD and 1 in PDA. Chest pain resolved. Awaiting lipid panel and HgA1C. Cont brilinta 90 mg PO BID, asa 81 mg PO daily, lipitor 80 mg PO daily, metoprolol 25 mg PO BID and lisinopril 5mg daily Obesity, counseled on dietary changes and weight loss Leukocytosis likely reactive in nature
[2016-12-30 23:25] LABS: CKMB/CK RATIO 3.1 (0-3.0)
[2016-12-31] VITALS (19 sets, daily range): BP systolic 94–124; BP diastolic 62–91; PULSE 73–100; TEMP 36.4–37.9; O2SAT 93–97
[2016-12-31] MEDS: EPTIFIBATIDE INJ 75 MG PREMIXED IV SCH (03:18)
[2016-12-31] MEDS ORDERED: Integrelin infusion --> STOP ORDER ONE (07:00)
[2016-12-31] MEDS ORDERED: PERFLUTREN LIPID MICROSPHERE (DEFINITY) IV ONE (07:33)
[2016-12-31 08:00] LABS: BASO % 0.2 %; BASO ABS # 0.02 K/uL (0-0.2); COMPLETE YES; EOS % 0.7 %; IG% 0.3 %; LYMPH % 14.7 %; LYMPH ABS # 1.69 K/uL (1.2-3.4); MEAN CELL VOLUME 89.8 fL (80-100); MEAN CORPUSCULAR HEMOGLOBIN 31.1 pg (25-34); MEAN CORPUSCULAR HGB CONC 34.7 g/dl (32-36); MEAN PLATELET VOLUME 10.5 fL (7.4-10.4); NEUT % 70.1 %; PLATELET COUNT 262 K/uL (130-400); RED BLOOD COUNT 4.79 M/uL (4.7-6.1); WHITE BLOOD COUNT 11.49 K/uL (4.8-10.8)
[2016-12-31 08:18] LABS: BUN/CREATININE RATIO 10.5 (10-20); CREATININE 0.94 mg/dl (0.60-1.40); POTASSIUM 3.9 mmol/L (3.5-5.1)
[2016-12-31 08:28] LABS: CKMB/CK RATIO 2.4 (0-3.0)
[2016-12-31] MEDS ORDERED: METOPROLOL TARTRATE 50 MG TAB PO SCH ×2 (09:00→21:00)
[2016-12-31] MEDS ORDERED: NURSING VERBAL MED ORDER ONE ×2 (09:00→14:30)
[2016-12-31] MEDS: METOPROLOL TARTRATE 1 MG/ML VIAL IV SCH (09:11)
[2016-12-31] MEDS: PANTOprazole SOD 40 MG TAB PO SCH (09:29)
[2016-12-31] MEDS: TICAGRELOR 90 MG TAB PO SCH ×2 (09:29→19:51)
[2016-12-31] MEDS: ATORVASTATIN 40 MG TAB PO SCH (09:29)
[2016-12-31] MEDS: LISINOPRIL 5 MG TAB PO SCH (09:30)
[2016-12-31] MEDS: ASPIRIN 81 MG ECTAB PO SCH (09:30)
[2016-12-31] MEDS ORDERED: METOPROLOL TARTRATE 50 MG TAB PO ONE (09:30)
[2016-12-31] MEDS: SODIUM CHLORIDE 0.9% 1000ML 1,000 ML IV SCH (09:31)
--- NOTE | 2016-12-31 12:24 | Critical Care Progress Note ---
Critical Care Progress Note Date of Service Dec 31, 2016. ICU Day ICU Day Number: [address] Hernandez Subjective Patient admitted with STEMI and had 4 NANCY placed 3 in the LAD and one in R PDA. He had one episode of CP at night which responded to nitrates. This am he says he feels totally fine. Troponin peak so far 161 and rising but he is asymptomatic. Metoprolol is up to 50 bid. HR was still in the 80-90 so I will increase to 100 mg at night if he is still >80 seen by cardiology on ASA and Brilinta. He was resumed on lovenox prophyalxis. He has no complaints. Objective General Appearance: WD/WN, no apparent distress Head: normocephalic, atraumatic Eyes: PERRLA, no discharge, sclerae normal ENT: mallempati [address] Neck: normal range of motion, no stridor, supple Respiratory: breath sounds normal, clear to auscultation Cardiovasular: normal S1S2, no M/G/R (his HR is 90s/min) Abdomen: non tender, normal bowel sounds, no rebound, no masses, no guarding Genitourinary - Male: external genitalia normal Upper Extremities: No edema C or cyanosis cath sites clean no bleed. Neuro: alert, oriented x 3, normal motor exam Current SOFA Score SOFA Score Response (Comments) Value Platelets (x10) > 150 0 Bilirubin (mg/dL) 1.2 - 1.9 1 [place] Coma Score 15 0 Level of Hypotension No Hypotension 0 Creatinine (mg/dL) < 1.2 0 Total 1 Assessment & Plan 36 yo male patient with obesity and possible MAYA admitted with STEMI s/p PTCI and 4 NANCY stent deployment. neurologic carotid doppler ordered morphine sulfate 2 mg for pain Q4 Prn and immediately infomed MD of worsening pain respiratory O2 via NC at 2lit/min as needed He saturates well >97% on room air cardiovascular Brilinta 90 mg PO BID asa 81 mg PO daily lipitor 80 mg PO daily metoprolol 50 mg PO BID and escalate to 100 mg PO BID or higher to achieve HR 60s/min lisinopril 5mg daily lipid profile showed LDL 156, HDL 28 Hb A1C pending GI diet heart healthy 2 gm of sodim direct bilirubin is within normal. The total may be due to lysed RBC from all the procedures renal FU and replete lytes. replaced K today UO adequate he has no sams ID no foci of infection willl monitor DVT lovenox 30 mg prophylaxis in am lines only peripheral lines patient critically ill and will monitor in MICU. total CC time 41 minutes Consults & Procedures Consultants: cardiology Procedures: cardiac cath Data Medications: Current Inpatient Medications Medications (Trade) Dose Ordered Sig/Jeremy Route Start Time Stop Time Status Last Admin Dose Admin Nitroglycerin (Nitrostat Tab) 0.4 mg UD PRN SL 12/30/16 15:00 01/29/17 14:59 12/30/16 20:38 0.4 MG Sodium Chloride 1,000 ml @ 100 mls/hr Q10H IV 12/30/16 15:00 01/29/17 14:59 12/31/16 09:31 100 MLS/HR Atropine Sulfate (Atropine Sulfate 0.1MG/Ml Inj) 0.5 mg ONE PRN IV 12/30/16 15:00 01/29/17 14:59 Ondansetron HCl (Zofran Inj) 4 mg Q6H PRN IV 12/30/16 15:00 01/29/17 14:59 Ondansetron HCl 8 mg/Dextrose 54 ml @ 200 mls/hr Q6H PRN IV 12/30/16 15:00 01/29/17 14:59 Aspirin (Ecotrin Tab) 81 mg QAM PO 12/31/16 09:00 01/30/17 08:59 12/31/16 09:30 81 MG Atorvastatin Calcium (Lipitor Tab) 80 mg QAM PO 12/31/16 09:00 01/30/17 08:59 12/31/16 09:29 80 MG Lisinopril (Zestril Tab) 5 mg QAM PO 12/31/16 09:00 01/30/17 08:59 12/31/16 09:30 5 MG Acetaminophen (Tylenol Tab) 650 mg Q4H PRN PO 12/30/16 15:00 01/29/17 14:59 Morphine Sulfate (MoRPHine SULFATE INJ) 2 mg Q5M PRN IV 12/30/16 15:00 01/13/17 14:59 Lorazepam (Ativan Tab) 1 mg Q6H PRN PO 12/30/16 15:00 01/29/17 14:59 Al Hydrox/Mg Hydrox/Simethicone (Maalox Max Susp) 15 ml Q4H PRN PO 12/30/16 15:00 01/29/17 14:59 Magnesium Hydroxide (Milk Of Magnesia Susp) 30 ml Q12H PRN PO 12/30/16 15:00 01/29/17 14:59 Pantoprazole Sodium (Protonix Tab) 40 mg DAILY PO 12/31/16 09:00 01/30/17 08:59 12/31/16 09:29 40 MG Lorazepam (Ativan Inj) 0.5 mg Q6H PRN IV 12/30/16 15:30 01/29/17 15:29 Ticagrelor (Brilinta Cap) 90 mg BID PO 12/30/16 21:00 01/29/17 20:59 12/31/16 09:29 90 MG Lorazepam 1 mg/ Syringe 1 ml @ 1 mls/min Q6H PRN IV 12/30/16 21:00 01/29/17 20:59 Lorazepam (Ativan Inj) 1 mg Q6H PRN IV 12/30/16 21:00 01/29/17 20:59 12/30/16 21:00 1 MG Metoprolol Tartrate (Lopressor Tab) 50 mg BID PO 12/31/16 21:00 01/30/17 20:59 Spironolactone (Aldactone Tab) 25 mg QAM PO 01/01/17 09:00 01/31/17 08:59 UNV Enoxaparin Sodium (Lovenox Inj) 30 mg Q12H SQ 12/31/16 11:45 01/30/17 11:44 UNV Vital Signs: Date Time Temp Pulse Resp B/P (MAP) Pulse Ox O2 Delivery O2 Flow Rate FiO2 12/31/16 11:32 79 16 113/76 (88) 96 Room Air 12/31/16 09:37 92 16 106/82 (90) 97 Room Air 12/31/16 08:00 Room Air 12/31/16 08:00 36.6 100 16 121/76 (91) 97 Room Air 12/31/16 05:01 85 22 108/64 (79) 94 Room Air 12/31/16 04:31 87 26 114/75 (88) 94 Room Air 12/31/16 04:01 36.6 88 24 111/78 (89) 95 Nasal Cannula 2.0 12/31/16 04:00 Nasal Cannula 2.0 12/31/16 03:31 90 22 112/76 (88) 95 Nasal Cannula 2.0 12/31/16 02:31 85 27 121/85 (97) 95 Nasal Cannula 2.0 12/31/16 02:01 90 26 117/80 (92) 95 Nasal Cannula 2.0 12/31/16 01:31 85 26 124/91 (102) 97 Nasal Cannula 2.0 12/31/16 01:01 93 19 118/72 (87) 96 Nasal Cannula 2.0 12/31/16 00:31 95 21 111/73 (86) 96 Nasal Cannula 2.0 12/31/16 00:01 36.4 100 25 120/84 (96) 96 Nasal Cannula 2.0 12/31/16 00:01 Nasal Cannula 2.0 12/30/16 23:31 101 27 116/77 (90) 96 Nasal Cannula 2.0 12/30/16 23:01 89 19 123/84 (97) 96 Nasal Cannula 2.0 12/30/16 22:31 93 20 110/80 (90) 95 Nasal Cannula 2.0 12/30/16 22:01 88 29 116/73 (87) 95 Nasal Cannula 2.0 12/30/16 21:31 91 25 120/78 (92) 95 Nasal Cannula 2.0 12/30/16 21:31 91 25 120/78 (92) 95 Nasal Cannula 2.0 12/30/16 21:30 92 112/78 12/30/16 21:16 96 23 125/85 (98) 95 Nasal Cannula 2.0 12/30/16 21:01 102 17 118/81 (93) 94 Nasal Cannula 2.0 12/30/16 21:00 106 121/70 12/30/16 20:54 36.8 102 15 121/70 (87) 94 Nasal Cannula 2.0 12/30/16 20:34 99 15 128/70 (89) 95 Nasal Cannula 2.0 12/30/16 20:31 98 19 123/79 (94) 95 Room Air 12/30/16 20:01 103 13 121/90 (100) 94 Room Air 12/30/16 20:00 Nasal Cannula 2.0 12/30/16 19:31 99 15 124/86 (99) 93 Room Air 12/30/16 19:30 108 19 115/80 (92) 95 Room Air 12/30/16 19:01 107 23 133/76 (95) 94 Room Air 12/30/16 18:31 84 18 116/72 (87) 94 Room Air 12/30/16 17:01 70 12 126/86 (99) 97 Room Air 12/30/16 16:32 104 15 119/89 (99) 97 Room Air 12/30/16 16:16 110 14 138/86 (103) 97 Room Air 12/30/16 16:01 97 15 134/95 (108) 96 Room Air 12/30/16 16:00 Room Air 12/30/16 15:46 111 18 131/91 (104) 93 Room Air 12/30/16 15:31 103 22 141/108 (119) 97 Room Air 12/30/16 15:19 37.1 118 16 142/88 96 Nasal Cannula 2.0 12/30/16 15:18 96 20 136/92 (107) 95 Room Air 12/30/16 15:10 36.6 85 18 142/88 (106) 95 Room Air 12/30/16 14:50 112 14 149/86 98 Room Air 12/30/16 14:35 108 10 135/91 97 Mask 6 Laboratory Results: Last 24 Hours Test 12/30/16 12:57 12/30/16 13:54 12/30/16 14:02 12/30/16 16:00 Kaolin Activated Coagulation Time 348 SECONDS 224 SECONDS 301 SECONDS White Blood Count 11.13 K/uL Red Blood Count 5.17 M/uL Hemoglobin 15.9 g/dL Hematocrit 46.7 % Mean Corpuscular Volume 90.3 fL Mean Corpuscular Hemoglobin 30.8 pg Mean Corpuscular Hemoglobin Concent 34.0 g/dl Platelet Count 222 K/uL Mean Platelet Volume 10.9 fL Neutrophils (%) (Auto) 71.1 % Lymphocytes (%) (Auto) 16.0 % Monocytes (%) (Auto) 12.1 % Eosinophils (%) (Auto) 0.3 % Basophils (%) (Auto) 0.2 % Neutrophils # (Auto) 7.92 K/uL Lymphocytes # (Auto) 1.78 K/uL Monocytes # (Auto) 1.35 K/uL Eosinophils # (Auto) 0.03 K/uL Basophils # (Auto) 0.02 K/uL RDW Standard Deviation 41.1 fL RDW Coefficient of Variation 12.4 % Immature Granulocyte % (Auto) 0.3 % Immature Granulocyte # (Auto) 0.03 K/uL Sodium Level 141 mmol/L Potassium Level 3.6 mmol/L Chloride Level 105 mmol/L Carbon Dioxide Level 29 mmol/L Anion Gap 7.0 mmol/L Blood Urea Nitrogen 12 mg/dl Creatinine 0.94 mg/dl Est Creatinine Clear Calc Drug Dose 134.1 ml/min Estimated GFR () 118.7 Estimated GFR (Non- 102.4 BUN/Creatinine Ratio 12.6 Random Glucose 113 mg/dl Calcium Level 8.3 mg/dl Magnesium Level 2.4 mg/dl Total Bilirubin 1.2 mg/dl Direct Bilirubin 0.3 mg/dl Aspartate Amino Transf (AST/SGOT) 396 U/L Alanine Aminotransferase (ALT/SGPT) 127 U/L Alkaline Phosphatase 43 U/L Total Creatine Kinase 2847 U/L Creatine Kinase MB 125.3 ng/ml Creatine Kinase MB Ratio 4.4 Troponin I 157.000 ng/ml Total Protein 7.9 gm/dl Albumin 3.6 gm/dl Globulin 4.3 gm/dl Albumin/Globulin Ratio 0.8 Triglycerides Level 168 mg/dl Cholesterol Level 207 mg/dl HDL Cholesterol 28 mg/dl LDL Cholesterol Direct 156 mg/dl LDL Cholesterol, Calculated mg/dl VLDL Cholesterol, Calculated 34 mg/dl Cholesterol/HDL Ratio 7.4 Test 12/30/16 22:26 12/30/16 22:37 12/31/16 07:50 12/31/16 11:19 Bedside Glucose 126 mg/dl 111 mg/dl Total Creatine Kinase 1542 U/L 911 U/L Creatine Kinase MB 47.9 ng/ml 21.7 ng/ml Creatine Kinase MB Ratio 3.1 2.4 Troponin I 81.700 ng/ml 160.000 ng/ml White Blood Count 11.49 K/uL Red Blood Count 4.79 M/uL Hemoglobin 14.9 g/dL Hematocrit 43.0 % Mean Corpuscular Volume 89.8 fL Mean Corpuscular Hemoglobin 31.1 pg Mean Corpuscular Hemoglobin Concent 34.7 g/dl Platelet Count 262 K/uL Mean Platelet Volume 10.5 fL Neutrophils (%) (Auto) 70.1 % Lymphocytes (%) (Auto) 14.7 % Monocytes (%) (Auto) 14.0 % Eosinophils (%) (Auto) 0.7 % Basophils (%) (Auto) 0.2 % Neutrophils # (Auto) 8.06 K/uL Lymphocytes # (Auto) 1.69 K/uL Monocytes # (Auto) 1.61 K/uL Eosinophils # (Auto) 0.08 K/uL Basophils # (Auto) 0.02 K/uL RDW Standard Deviation 40.6 fL RDW Coefficient of Variation 12.4 % Immature Granulocyte % (Auto) 0.3 % Immature Granulocyte # (Auto) 0.03 K/uL Sodium Level 138 mmol/L Potassium Level 3.9 mmol/L Chloride Level 106 mmol/L Carbon Dioxide Level 23 mmol/L Anion Gap 9.0 mmol/L Blood Urea Nitrogen 10 mg/dl Creatinine 0.94 mg/dl Est Creatinine Clear Calc Drug Dose 134.4 ml/min Estimated GFR () 118.7 Estimated GFR (Non- 102.4 BUN/Creatinine Ratio 10.5 Random Glucose 117 mg/dl Calcium Level 9.0 mg/dl Total Bilirubin 1.5 mg/dl Direct Bilirubin 0.3 mg/dl Aspartate Amino Transf (AST/SGOT) 224 U/L Alanine Aminotransferase (ALT/SGPT) 104 U/L Alkaline Phosphatase 38 U/L Total Protein 7.5 gm/dl Albumin 3.2 gm/dl
[2016-12-31] MEDS ORDERED: POTASSIUM CHLORIDE 20 MEQ/15 ML UDC PO ONE (13:00)
--- NOTE | 2016-12-31 13:21 | PROGRESS NOTE ---
DATE: 12/31/2016 SUBJECTIVE: The patient was seen by me this morning in his intensive care unit room. He states that overall he is feeling well. He does have fatigue. He has no chest or back discomfort, which he complained the past week and yesterday morning. This is completely resolved. He has some musculoskeletal back discomfort, which was relieved with sitting up in a chair. No orthopnea or PND overnight. No palpitations, lightheadedness, or syncope. No pain at his right radial or femoral catheterization sites. No bleeding at these sites. No other bleeding complaints. No complaints of leg pain or swelling. No pulmonary, GI, or urinary complaints. No skin rash complaints. No cerebrovascular or peripheral vascular complaints. No fevers or chills. CURRENT MEDICATIONS: Metoprolol tartrate 50 mg p.o. b.i.d., aspirin 81 mg daily, atorvastatin 80 mg daily, lisinopril 5 mg daily, pantoprazole 40 mg daily, Ticagrelor 90 mg b.i.d., and several p.r.n. medications. ALLERGIES AND ADVERSE DRUG REACTIONS: None. Monitor history since admission to the intensive care unit reviewed by me. Sinus rhythm and sinus tachycardia. Occasional premature ventricular beat. No ventricular tachycardia. No atrioventricular block. PHYSICAL EXAMINATION: VITAL SIGNS: Most recent vital signs show heart rate in the 70s-80s. Blood pressure 106/82. Earlier this morning, the blood pressure was 121/76. Earlier this morning, the heart rate was 100 beats per minute. Thereafter, he received 50 mg of oral metoprolol. Oral temperature 36.6. Pulse oximetry on room air 97%. GENERAL APPEARANCE: Shows him to be in no distress. NECK: No jugular venous distention. LUNGS: Normal respiratory effort. Clear. No rales or wheezes. HEART: Regular rate and rhythm. S1, S2 normal. No S3 or S4. No murmur or rub. ABDOMEN: Soft. Nontender. No palpable masses or organomegaly. No bruits. EXTREMITIES: Right radial catheterization site without bleeding or hematoma. Nontender. Right radial pulse palpable. No arterial insufficiency in right hand. Right femoral catheterization site without bleeding or hematoma. No bruit heard in the right femoral artery. Mildly tender to palpation. No pretibial edema. No cyanosis or clubbing. PULSES: Dorsalis pedis and posterior tibial pulses are strongly palpable bilaterally. NEUROLOGICAL: Alert and oriented x3. Motor grossly intact. PSYCHIATRIC: Affect is normal. DATA: Electrocardiogram performed this morning and reviewed by me shows sinus rhythm at a rate of 93 beats per minute. Inferior and anterior MO. Persistent ST segment elevations in leads 2, 3, aVF, V2-V6. Inverting T waves in the inferior and anterior leads. Changes consistent with evolving anterior and inferior infarcts. Echocardiogram performed this morning and reviewed by me shows [id number] septal and apical severe hypokinesis to akinesis, inferior severe hypokinesis to akinesis. The other LV segments contract normally. The LV ejection fraction is 40-45%. No significant valvular abnormalities noted. This is a preliminary report. LABORATORY DATA: Labs today with WBC 11.49, hemoglobin 14.9, platelet count 262. Metabolic profile with sodium 138, potassium 3.9, chloride 106, carbon dioxide 23, BUN 10, creatinine 0.94, and random glucose 117. LFTs this morning with total bilirubin 1.5, AST 224, ALT 104, alkaline phosphatase 38. Lipid profile yesterday returned with triglyceride level 168, total cholesterol 207, direct LDL 156, and HDL 28. Troponin ____ since 11:40 a.m. yesterday morning have been 5.540, 137.000, 81.700, and 160.000. The most recent was from 7:50 a.m. this morning. CK total since admission have been 172, 2847, 1542, and 911. Respective CK-MBs on the last 3 determinations of 125.3, 47.9, and 21.7. Hemoglobin A1c is pending at the time of this dictation. ASSESSMENT: 1. Status post acute anterior and inferior myocardial infarction secondary to total occlusion of mid left anterior descending and subtotal occlusion of proximal PDA. 2. His infarct was preceded by at least 4 days of unstable anginal symptoms. With the prolonged nature of some of these episodes lasting 4-5 hours cannot exclude that he was sustained myocardial injury earlier in the week. 3. Successful intervention to the left anterior descending and PDA occlusions with deployment of drug-eluting stents. No coronary or vascular complications. 4. Resolution of anginal symptoms since successful coronary intervention. No significant arrhythmias. No vascular complications. 5. Hemoglobin and platelet count stable after procedure and administration of antiplatelet agents including aspirin, Integrilin, and Ticagrelor. 6. Dyslipidemia. Markedly elevated direct LDL. Low HDL. This is clearly a risk factor in developing atherosclerotic disease. Additional family history was obtained by the nursing staff from the patient's mother. A maternal aunt had a myocardial infarction in her 40s. His maternal grandmother also had premature coronary artery disease by report. 7. No signs or symptoms of congestive heart failure. 8. Moderate left ventricular systolic dysfunction. No significant valvular abnormalities noted on echo this morning. 9. Elevated heart rate this morning. Improvement in heart rate after administration of 50 mg of oral metoprolol. 10. Blood pressure under good control. PLAN: 1. Continue higher dose of metoprolol. Prior to discharge, we will switch him to metoprolol succinate ER. 2. Continue current dose of lisinopril. 3. Continue maximum dose of atorvastatin. 4. Continue aspirin and Brilinta. 5. Await complete report of echocardiogram. I only preliminarily reviewed the images at the time of this dictation. 6. Dietary consultation in regards to low fat and heart healthy diet. 7. Refer to cardiac rehabilitation. 8. Increase activity. 9. We will consider adding an aldosterone antagonist to his medical regimen.
[2016-12-31] MEDS: ENOXAPARIN 30 MG/0.3 ML SYR SQ SCH ×2 (14:00→20:06)
--- NOTE | 2016-12-31 14:00 | ECHOCARDIOGRAM REPORT ---
*NOTICE TO RECEIVING LIBERTARIAN AGENCY This information is strictly Confidential and protected under [place] law. [place] law prohibits you from making any further disclosure of this information unless further disclosure is expressly permitted by the written consent of the person to whom it pertains or is authorized by law. A general authorization for the release of medical or other information is not sufficient for this purpose. Hospital accepts no responsibility if the information is made available to any other person, INCLUDING THE PATIENT. Interpretation Summary * Name: ENRIQUETA THOMPSON Study Date: 12/31/2016 07:04 AM BP: 108/64 mmHg * Patient Location: .MSICU\S\E104\S\1 HR: 93 * : 1980 (M/d/yyyy) Gender: Male Height: 72 in * Age: 36 yrs Ethnicity: CA Weight: 264 lb * Ordering Physician: David Voss * Referring Physician: Self, Referred * Performed By: Sly Tomlinson RDCS * * Reason For Study: AMI * BSA: 2.4 m2 * Moderate left ventricular systolic dysfunction. * Inferoapical,apical,and anteroapical akinesis of thre left ventricle. * Small inferoapical mural thrombus of the left ventricle. * Normal chamber dimensions. * No significant valvular abnormalities. Procedure Details * A complete two-dimensional transthoracic echocardiogram was performed (2D, M-mode, Doppler and color flow Doppler). * The study was technically difficult. * There were technical limitations due to patient'spoor positioning * The study was technically difficult, but visualization was adequate with the administration of Definity ultrasound contrast. * A contrast injection of Definity was performed to improve assessment of LV function. * Contrast was injected into an intravenous site in the right arm. * One vial of Definity ultrasound contrast was diluted in normal saline to a total volume of 10 ml. A total of '5' ml of solution was administered during imaging. * Lot # [id number] of Definity utilized for procedure. * Expiration date . * The attending nurse who injected the contrast agent was GERSON Machado. Left Ventricle * The left ventricle is normal in size. * Small inferoapical thrombus. * There is normal left ventricular wall thickness. * Left ventricular systolic function is mild to moderately reduced. * Ejection Fraction = 40-45%. Right Ventricle * The right ventricle is normal in size and function. Atria * The left atrial size is normal. * Right atrial size is normal. Mitral Valve * The mitral valve is normal. * There is no mitral valve stenosis. * There is no mitral regurgitation noted. Tricuspid Valve * The tricuspid valve is normal. * There is no tricuspid stenosis. * There is trace tricuspid regurgitation. * Right ventricular systolic pressure is normal. Aortic Valve * The aortic valve is trileaflet. * The aortic valve opens well. * Aortic stenosis is absent. * No aortic regurgitation is present. Pulmonic Valve * The pulmonic valve is not well seen, but is grossly normal. * There is no pulmonic valvular stenosis. * There is no pulmonic valvular regurgitation. Pericardium/Pleural * There is no pericardial effusion. MMode 2D Measurements and Calculations IVSd 1.1 cm IVSs 1.8 cm LVIDd 5.4 cm LVIDs 3.3 cm LVPWd 1.1 cm LVPWs 1.8 cm IVS/LVPW 0.99 FS 38.2 % EDV(Teich) 139.7 ml ESV(Teich) 44.9 ml EF(Teich) 67.9 % EDV(cubed) 155.1 ml ESV(cubed) 36.7 ml EF(cubed) 76.4 % % IVS thick 60.8 % % LVPW thick 62.7 % LV mass(C)d 233.3 grams LV mass(C)dI 97.3 grams/m\S\2 LV mass(C)s 241.6 grams LV mass(C)sI 100.8 grams/m\S\2 SV(Teich) 94.8 ml SI(Teich) 39.6 ml/m\S\2 SV(cubed) 118.5 ml SI(cubed) 49.4 ml/m\S\2 EPSS 1.0 cm Ao root diam 3.5 cm Ao root area 9.7 cm\S\2 ACS 2.2 cm LA dimension 3.2 cm asc Aorta Diam 3.6 cm LA/Ao 0.92 LVOT diam 2.1 cm LVOT area 3.5 cm\S\2 LVAd ap4 34.9 cm\S\2 LVLd ap4 8.1 cm EDV(MOD-sp4) 128.0 ml LVAs ap4 25.7 cm\S\2 LVLs ap4 8.1 cm ESV(MOD-sp4) 70.0 ml EF(MOD-sp4) 45.3 % LVAd ap2 31.6 cm\S\2 LVLd ap2 8.4 cm EDV(MOD-sp2) 100.0 ml LVAs ap2 24.0 cm\S\2 LVLs ap2 8.6 cm ESV(MOD-sp2) 57.0 ml EF(MOD-sp2) 43.0 % SV(MOD-sp4) 58.0 ml SI(MOD-sp4) 24.2 ml/m\S\2 SV(MOD-sp2) 43.0 ml SI(MOD-sp2) 17.9 ml/m\S\2 Doppler Measurements and Calculations MV E max keily 73.5 cm/sec MV A max keily 67.1 cm/sec MV E/A 1.1 MV dec time 0.17 sec Ao V2 max 118.3 cm/sec Ao max PG 5.6 mmHg Ao max PG (full) 2.2 mmHg CHARO(V,A) 2.7 cm\S\2 CHARO(V,D) 2.7 cm\S\2 LV V1 max PG 3.4 mmHg LV V1 max 92.5 cm/sec PA V2 max 119.4 cm/sec PA max PG 5.7 mmHg TR max keily 219.8 cm/sec
[2016-12-31] MEDS ORDERED: METOPROLOL TARTRATE 25 MG TAB PO ONE (15:00)
[2016-12-31] MEDS ORDERED: METOPROLOL TARTRATE 100 MG TAB PO SCH (21:00)
[2017-01-01] VITALS (10 sets, daily range): BP systolic 94–120; BP diastolic 55–71; PULSE 62–84; TEMP 36.8–37.2; O2SAT 91–96
[2017-01-01 05:14] LABS: BASO % 0.2 %; BASO ABS # 0.02 K/uL (0-0.2); COMPLETE YES; HEMATOCRIT 42.1 % (42-52); IG% 0.2 %; LYMPH ABS # 1.96 K/uL (1.2-3.4); MEAN CELL VOLUME 90.9 fL (80-100); MEAN CORPUSCULAR HEMOGLOBIN 30.7 pg (25-34); MEAN CORPUSCULAR HGB CONC 33.7 g/dl (32-36); MEAN PLATELET VOLUME 10.7 fL (7.4-10.4); MONO % 12.1 %; NEUT % 65.5 %; PLATELET COUNT 240 K/uL (130-400); RED BLOOD COUNT 4.63 M/uL (4.7-6.1); WHITE BLOOD COUNT 9.32 K/uL (4.8-10.8)
[2017-01-01 05:40] LABS: BUN/CREATININE RATIO 12.9 (10-20); CALCIUM 8.4 mg/dl (8.5-10.1); CREATININE 0.85 mg/dl (0.60-1.40); POTASSIUM 3.8 mmol/L (3.5-5.1)
--- NOTE | 2017-01-01 06:38 | DIAGNOSTIC IMAGING REPORT ---
CAROTID ARTERY ULTRASOUND CLINICAL HISTORY: 3 episodes of near syncope and is admitted with [place] COMPARISON STUDY: None. TECHNIQUE: Real-time, grayscale, and color Doppler sonography of the carotid and vertebral arteries was performed. Images were viewed in the transverse and longitudinal planes. FINDINGS: There is minimal atherosclerotic plaque present. Velocity measurements are listed below. COMMON CAROTID PEAK SYSTOLIC VELOCITY (CM/S): RIGHT 84 LEFT 70 ICA PEAK SYSTOLIC VELOCITY (CM/S): RIGHT 70 LEFT 67 The systolic ratios within the internal to common carotid arteries are normal. Antegrade flow is seen in the vertebral arteries. The external carotid arteries are patent. Blood pressures were not obtained in this patient. IMPRESSION: No evidence of a hemodynamically significant stenosis. Electronically signed by: Tunde Marroquin M.D. 01/01/2017 6:36 AM Dictated Date/Time: 01/01/2017 6:34 AM
[2017-01-01 06:53] LABS: ESTIMATED AVERAGE GLUCOSE 108 mg/dl; HA1C FLAG Normal (Normal)
[2017-01-01] MEDS: TICAGRELOR 90 MG TAB PO SCH (08:37)
[2017-01-01] MEDS: PANTOprazole SOD 40 MG TAB PO SCH (08:37)
[2017-01-01] MEDS: ASPIRIN 81 MG ECTAB PO SCH (08:37)
[2017-01-01] MEDS: ATORVASTATIN 40 MG TAB PO SCH (08:37)
[2017-01-01] MEDS: LISINOPRIL 5 MG TAB PO SCH (08:37)
--- NOTE | 2017-01-01 08:44 | PROGRESS NOTE ---
DATE: 01/01/2017 SUBJECTIVE: This patient was seen by me this morning in his intensive care unit room. He is feeling well. He denies any chest or back discomfort. No orthopnea or PND overnight. No dyspnea at rest or with exertion walking in the room. No palpitations, lightheadedness or syncope. No abdominal pain or nausea. No pulmonary, GI or urinary complaints. No bleeding complaints. No cerebrovascular or peripheral vascular complaints. No skin rash complaints. ALLERGIES: No known drug allergies. CURRENT MEDICATIONS: Spironolactone 25 mg daily, metoprolol tartrate 100 mg b.i.d., Lovenox 30 mg subQ q. 12 hours, aspirin 81 mg daily, atorvastatin 80 mg daily, lisinopril 5 mg daily, pantoprazole 40 mg daily, ticagrelor 90 mg b.i.d. and sublingual nitroglycerin p.r.n. chest pain. PHYSICAL EXAMINATION: GENERAL: Review of monitor history for the 24 hours shows sinus rhythm. Rare premature ventricular beats. No ventricular tachycardia. VITAL SIGNS: This morning; oral temperature 37.2, pulse 71, blood pressure 106/71, pulse oximetry room air 92%. NECK: No jugular venous distention. LUNGS: Normal respiratory effort. Clear. No rales or wheezes. HEART: Regular rate and rhythm. S1, S2 normal. No S3 or S4. No murmur or rub. ABDOMEN: Soft. Nontender. No palpable masses or organomegaly. No bruits. EXTREMITIES: No pretibial edema. Right radial catheterization site and the right femoral arterial catheterization site without bleeding or hematoma. Nontender. Both pulses strongly palpable. No evidence of arterial insufficiency in the right hand. No pretibial edema. No calf tenderness. PULSES: Distal pulses in all extremities palpable. NEUROLOGIC: Alert and oriented x3. Motor grossly intact. PSYCHIATRIC: Affect is normal. DATA: Today's electrocardiogram is pending at the time of this dictation. Echocardiogram performed yesterday revealed moderate left ventricular systolic dysfunction, LV ejection fraction 40-45%, normal left ventricular wall thickness, small inferoapical LV mural thrombus, no significant valvular abnormalities. There was inferoapical ,apical, and anteroapical akinesis of the left ventricle. LABORATORIES: This morning with WBC 9.32, hemoglobin 14.2, hematocrit 42.1 and platelet count 240. Metabolic profile this morning with sodium 141, potassium 3.8 ,chloride 107, carbon dioxide 24, BUN 11, creatinine 0.85 and random glucose 100. ASSESSMENT: 1. Status post anterior and inferior myocardial infarction secondary to total occlusion of mid left anterior descending and subtotal occlusion of proximal posterior descending artery. The infarct was preceded by 4 days of unstable anginal symptoms. He presented to [facility] on 12/30/2016. Evidence of acute inferior and anterior myocardial injury on electrocardiogram. 2. Emergency coronary intervention performed to the occlusions in the left anterior descending and right coronary artery on 12/30/2016. Deployment of a total of 3 drug-eluting stents throughout the mid left anterior descending; these were in overlapping fashion. Deployment of one drug-eluting stent in proximal posterior descending artery. No residual stenosis at the stent sites. 3. Resolution of anginal symptoms after coronary intervention. 4. No post-infarct or percutaneous coronary intervention, ventricular arrhythmias of significance. Any rare to occasional premature ventricular beats. No ventricular tachycardia. No bradyarrhythmias. 5. No congestive heart failure. 6. No vascular complications. 7. Small inferoapical left ventricular mural thrombus noted on echocardiogram yesterday. 8. Moderate left ventricular systolic dysfunction. 9. Hemoglobin and platelet counts stable. 10. Renal function stable. PLAN: 1. Change metoprolol to metoprolol succinate ER 200 mg daily. 2. Discontinue enoxaparin. 3. Start Xarelto 20 mg daily. This is for the LV thrombus. 4. Continue aspirin, ticagrelor (Brilinta), lisinopril and spironolactone. 5. Walk in the [place] today. If he is stable, discharge home later today. The above assessment and plan were discussed with the patient and nursing staff. Discussed with the ICU staff. MICKI
[2017-01-01] MEDS ORDERED: RIVAROXABAN 20 MG TAB PO SCH (09:00)
[2017-01-01] MEDS ORDERED: METOPROLOL SUCC 50MG EXT REL TAB PO SCH (09:00)
[2017-01-01] MEDS ORDERED: SPIRONOLACTONE 25 MG TAB PO SCH (09:00)
--- NOTE | 2017-01-01 10:57 | Critical Care Progress Note ---
Critical Care Progress Note Date of Service Jan 01, 2017. Attending Dr. Peter Subjective [place] S/P cardiac cath and percutaneous intervention--He is doing better. No angina. No dyspnea. He is walking about the unit without complaint. Spoke with cardiology who is planning on discharge plans and follow-up. Objective General Appearance: no new distress. Feeling well. Head: no new targets Eyes: sclerae pale and without changes ENT: no new targets Neck: no JVD Respiratory: exchange is fine--no wheezing or rhonchi Cardiovasular: normal rhythm. No JVD Abdomen: functional and nontender Genitourinary - no issues reported musculo--no effusion/erythema or other target considered Neuro: alert, oriented x 3, normal motor exam Current SOFA Score SOFA Score Response (Comments) Value Platelets (x10) > 150 0 Bilirubin (mg/dL) 1.2 - 1.9 1 [place] Coma Score 15 0 Level of Hypotension No Hypotension 0 Creatinine (mg/dL) < 1.2 0 Total 1 Assessment & Plan UT--cath and intervention 1. Cardio--followed by cardiology--no ICU recommendations 2. Pulmonary--toilette 3. GI--functional 4. F/E/N--looking appropriate 5. Disposition--discharge per cardiology Consults & Procedures Consultants: cardiology Procedures: cardiac cath Data Medications: Current Inpatient Medications Medications (Trade) Dose Ordered Sig/Jeremy Route Start Time Stop Time Status Last Admin Dose Admin Nitroglycerin (Nitrostat Tab) 0.4 mg UD PRN SL 12/30/16 15:00 01/29/17 14:59 12/30/16 20:38 0.4 MG Atropine Sulfate (Atropine Sulfate 0.1MG/Ml Inj) 0.5 mg ONE PRN IV 12/30/16 15:00 01/29/17 14:59 Ondansetron HCl (Zofran Inj) 4 mg Q6H PRN IV 12/30/16 15:00 01/29/17 14:59 Ondansetron HCl 8 mg/Dextrose 54 ml @ 200 mls/hr Q6H PRN IV 12/30/16 15:00 01/29/17 14:59 Aspirin (Ecotrin Tab) 81 mg QAM PO 12/31/16 09:00 01/30/17 08:59 01/01/17 08:37 81 MG Atorvastatin Calcium (Lipitor Tab) 80 mg QAM PO 12/31/16 09:00 01/30/17 08:59 01/01/17 08:37 80 MG Lisinopril (Zestril Tab) 5 mg QAM PO 12/31/16 09:00 01/30/17 08:59 01/01/17 08:37 5 MG Acetaminophen (Tylenol Tab) 650 mg Q4H PRN PO 12/30/16 15:00 01/29/17 14:59 Morphine Sulfate (MoRPHine SULFATE INJ) 2 mg Q5M PRN IV 12/30/16 15:00 01/13/17 14:59 Lorazepam (Ativan Tab) 1 mg Q6H PRN PO 12/30/16 15:00 01/29/17 14:59 Al Hydrox/Mg Hydrox/Simethicone (Maalox Max Susp) 15 ml Q4H PRN PO 12/30/16 15:00 01/29/17 14:59 Magnesium Hydroxide (Milk Of Magnesia Susp) 30 ml Q12H PRN PO 12/30/16 15:00 01/29/17 14:59 Pantoprazole Sodium (Protonix Tab) 40 mg DAILY PO 12/31/16 09:00 01/30/17 08:59 01/01/17 08:37 40 MG Lorazepam (Ativan Inj) 0.5 mg Q6H PRN IV 12/30/16 15:30 01/29/17 15:29 Ticagrelor (Brilinta Cap) 90 mg BID PO 12/30/16 21:00 01/29/17 20:59 01/01/17 08:37 90 MG Lorazepam 1 mg/ Syringe 1 ml @ 1 mls/min Q6H PRN IV 12/30/16 21:00 01/29/17 20:59 Lorazepam (Ativan Inj) 1 mg Q6H PRN IV 12/30/16 21:00 01/29/17 20:59 12/30/16 21:00 1 MG Spironolactone (Aldactone Tab) 25 mg QAM PO 01/01/17 09:00 01/31/17 08:59 01/01/17 08:37 25 MG Metoprolol Succinate (Toprol Xl Tab) 200 mg QAM PO 01/01/17 09:00 01/31/17 08:59 6/5/17 08:37 200 MG Rivaroxaban (Xarelto Tab) 20 mg DAILY PO 01/01/17 09:00 01/31/17 08:59 01/01/17 08:37 20 MG Vital Signs: Date Time Temp Pulse Resp B/P (MAP) Pulse Ox O2 Delivery O2 Flow Rate FiO2 01/01/17 08:30 37.0 84 27 113/66 (82) 96 Room Air 01/01/17 08:00 Room Air 01/01/17 06:01 71 20 106/71 (83) Room Air 01/01/17 05:01 67 13 96/55 (69) 92 Room Air 01/01/17 04:01 37.2 71 16 94/61 (72) 94 Room Air 01/01/17 04:00 Room Air 01/01/17 03:01 62 17 95/61 (72) 91 Room Air 01/01/17 02:01 76 17 97/60 (72) 94 Room Air 01/01/17 01:01 72 16 100/61 (74) 96 Room Air 01/01/17 00:01 Room Air 01/01/17 00:01 36.8 75 17 104/60 (75) 93 Room Air 12/31/16 23:01 73 10 94/62 (73) 93 Room Air 12/31/16 22:19 77 17 100/66 (77) 96 Room Air 12/31/16 20:00 Room Air 12/31/16 19:53 37.9 84 18 116/68 (84) 96 Room Air 12/31/16 18:09 91 16 113/70 (84) 96 Room Air 12/31/16 16:00 Room Air 12/31/16 15:55 36.9 82 14 113/71 (85) 97 Room Air 12/31/16 14:47 87 15 122/75 (91) Room Air 12/31/16 12:00 Room Air 12/31/16 11:32 79 16 113/76 (88) 96 Room Air Laboratory Results: Last 24 Hours Test 12/31/16 11:19 12/31/16 15:50 12/31/16 22:17 01/01/17 04:40 Bedside Glucose 111 mg/dl 101 mg/dl 107 mg/dl White Blood Count 9.32 K/uL Red Blood Count 4.63 M/uL Hemoglobin 14.2 g/dL Hematocrit 42.1 % Mean Corpuscular Volume 90.9 fL Mean Corpuscular Hemoglobin 30.7 pg Mean Corpuscular Hemoglobin Concent 33.7 g/dl Platelet Count 240 K/uL Mean Platelet Volume 10.7 fL Neutrophils (%) (Auto) 65.5 % Lymphocytes (%) (Auto) 21.0 % Monocytes (%) (Auto) 12.1 % Eosinophils (%) (Auto) 1.0 % Basophils (%) (Auto) 0.2 % Neutrophils # (Auto) 6.10 K/uL Lymphocytes # (Auto) 1.96 K/uL Monocytes # (Auto) 1.13 K/uL Eosinophils # (Auto) 0.09 K/uL Basophils # (Auto) 0.02 K/uL RDW Standard Deviation 41.8 fL RDW Coefficient of Variation 12.5 % Immature Granulocyte % (Auto) 0.2 % Immature Granulocyte # (Auto) 0.02 K/uL Sodium Level 141 mmol/L Potassium Level 3.8 mmol/L Chloride Level 107 mmol/L Carbon Dioxide Level 24 mmol/L Anion Gap 10.0 mmol/L Blood Urea Nitrogen 11 mg/dl Creatinine 0.85 mg/dl Est Creatinine Clear Calc Drug Dose 148.6 ml/min Estimated GFR () 128.1 Estimated GFR (Non- 110.5 BUN/Creatinine Ratio 12.9 Random Glucose 100 mg/dl Calcium Level 8.4 mg/dl
--- NOTE | 2017-01-01 12:20 | Discharge Instructions ---
Discharge Instructions Procedure Procedure Date: Jan 01, 2017. Reason for Visit: Acute Mycocardial Infarction. Discharge Discharge Date: Jan 01, 2017. Discharge Diagnosis: Acute anterior and inferior myocardial infarction. Problem List: Medical Problems: (1) Chest pain Status: Acute (2) STEMI (ST elevation myocardial infarction) 3. Dyslipidemia. 4. Left ventricular mural thrombus. Status: Acute Last Recorded Wt (Kilograms): 103.800 Anesthesia Post Anesthesia Instructions: If you have had General Anesthesia or IV Sedation: * Do not drive today. * Resume driving when surgeon permits. * Do not make important decisions or sign legal documents today. * Call surgeon for: 1. Temperature elevations greater than 101 degrees F. 2. Uncontrollable pain. 3. Excessive bleeding. 4. Persistent nausea and vomiting. 5. Medication intolerance (nausea, vomiting or rash). * For nausea and vomiting use only clear liquids such as: tea, soda, bouillon until nausea subsides, then gradually increase diet as tolerated. * If you have any concerns or questions, call your surgeon's office. If physician is unavailable and it is an emergency, call 911 or go to the nearest emergency room. Instructions Activity Recommendations: lifting limitation (No lifting over 10 pounds.), driving or machine use limit (You may drive starting January 02, 2017.), shower/ bathe limit (You may shower today when you go home.) Return to School/Work: with the following limitations (Do not return to work until at least January 15, 2017.) Recommended Home Diet: low sodium, low cholesterol, special diet (Low- carbohydrate and low-calorie with) Allergies: Coded Allergies: No Known Allergies (Unverified , NONE, 04/18/09) Provider Instructions Take medications on a daily basis. Do not stop aspirin and Brilinta without approval of Dr. Voss or one of his colleagues. Call 911 immediately for any recurrence of chest pain which precipitated this admission. Call Dr. Voss's office at [phone] for any questions or problems. Follow Up Follow-up with: Appointment with Dr. Voss on Sunday January 08, 2017 at 1:30 p.m.. [facility] offices. [address]. [facility]. [facility]. [facility] Recommendations: Call your doctor if: * Temperature above 101 degrees * Pain not relieved by pain medicine ordered * There is increased drainage or redness from any incision * You have any unanswered questions or concerns. Your Doctors Instructions noted above were prepared by provider David Voss. Patient Signature Section: Patient Instructions Signature Page Richie Cherry Patient (or Guardian) Signature/Date: I have read and understand the instructions given to me by my caregivers. Caregiver/RN/Doctor Signature/Date: The above-named patient and/or guardian has received patient instructions on this date. + Original Patient Signature Page (only) stays with chart. Please make copy for patient.
[2017-01-01] MEDS ORDERED: LSN5 PO (12:48)
[2017-01-01] MEDS ORDERED: TPRSR50 PO (12:48)
[2017-01-01] MEDS ORDERED: XRL20 PO (12:48)
[2017-01-01] MEDS ORDERED: BRL90 PO (12:48)
[2017-01-01] MEDS ORDERED: NTRSLP4 SL (12:48)
[2017-01-01] MEDS ORDERED: SPR25 PO (12:48)
[2017-01-01] MEDS ORDERED: LPT40 PO (12:48)
[2017-01-01] MEDS ORDERED: ASPEC81 PO (12:48)
[2017-01-01] MEDS ORDERED: PRT40 PO (13:02)
--- NOTE | 2017-01-02 00:13 | Hospitalist Progress Note ---
Hospitalist Progress Note Date of Service Jan 02, 2017. Subjective Pt evaluation today including: conversation w/ patient, physical exam Pt feeling well. No CP or SOB, no significant events on tele. Is ambulating the halls without problems today. All Other Systems: Reviewed and Negative Objective Vital Signs Date Time Temp Pulse Resp B/P (MAP) Pulse Ox O2 Delivery O2 Flow Rate FiO2 01/01/17 14:02 37.0 72 25 96 Room Air 01/01/17 12:00 Room Air 01/01/17 11:04 72 25 120/66 (84) 96 Room Air 01/01/17 08:30 37.0 84 27 113/66 (82) 96 Room Air 01/01/17 08:00 Room Air 01/01/17 06:01 71 20 106/71 (83) Room Air 01/01/17 05:01 67 13 96/55 (69) 92 Room Air 01/01/17 04:01 37.2 71 16 94/61 (72) 94 Room Air 01/01/17 04:00 Room Air 01/01/17 03:01 62 17 95/61 (72) 91 Room Air 01/01/17 02:01 76 17 97/60 (72) 94 Room Air 01/01/17 01:01 72 16 100/61 (74) 96 Room Air Physical Exam General Appearance: WD/WN, no apparent distress Eyes: normal inspection, sclerae normal ENT: hearing grossly normal, pharynx normal Neck: trachea midline Respiratory/Chest: lungs clear, normal breath sounds, no respiratory distress, no accessory muscle use Cardiovascular: regular rate, rhythm, no edema, no gallop, no murmur Abdomen: normal bowel sounds, non tender, soft Extremities: non-tender, normal inspection, no pedal edema, no calf tenderness Neurologic/Psychiatric: no motor/sensory deficits, alert, normal mood/affect, oriented x 3 Skin: normal color, warm/dry, no rash Laboratory Results Last 24 Hours Test 01/01/17 04:40 White Blood Count 9.32 K/uL Red Blood Count 4.63 M/uL Hemoglobin 14.2 g/dL Hematocrit 42.1 % Mean Corpuscular Volume 90.9 fL Mean Corpuscular Hemoglobin 30.7 pg Mean Corpuscular Hemoglobin Concent 33.7 g/dl Platelet Count 240 K/uL Mean Platelet Volume 10.7 fL Neutrophils (%) (Auto) 65.5 % Lymphocytes (%) (Auto) 21.0 % Monocytes (%) (Auto) 12.1 % Eosinophils (%) (Auto) 1.0 % Basophils (%) (Auto) 0.2 % Neutrophils # (Auto) 6.10 K/uL Lymphocytes # (Auto) 1.96 K/uL Monocytes # (Auto) 1.13 K/uL Eosinophils # (Auto) 0.09 K/uL Basophils # (Auto) 0.02 K/uL RDW Standard Deviation 41.8 fL RDW Coefficient of Variation 12.5 % Immature Granulocyte % (Auto) 0.2 % Immature Granulocyte # (Auto) 0.02 K/uL Sodium Level 141 mmol/L Potassium Level 3.8 mmol/L Chloride Level 107 mmol/L Carbon Dioxide Level 24 mmol/L Anion Gap 10.0 mmol/L Blood Urea Nitrogen 11 mg/dl Creatinine 0.85 mg/dl Est Creatinine Clear Calc Drug Dose 148.6 ml/min Estimated GFR () 128.1 Estimated GFR (Non- 110.5 BUN/Creatinine Ratio 12.9 Random Glucose 100 mg/dl Calcium Level 8.4 mg/dl Assessment and Plan Pt is a 36 yo male with chest discomfort which he related to more like a reflux sensation who presented to ER and noted to have STEMI. Trop peaked at 160. LVEF reduced at 40-45% on ECHO. 4 NANCY placed (3 NANCY placed in LAD and 1 in PDA) and now on Brillinta, ASA. Small LV thrombus noted also on ECHO and started on Xarelto. No signs or symptoms of CVA. Chest pain resolved. HgbA1C normal at 5.4%. With strong +FH of CAD Lipids with TChol/LDL/HDL = 207/156/28--> started on high intensity atorvastatin -check lipids and repeat LFTs in 6 weeks -continue Toprol XL 200mg daily and lisinopril 5mg daily, aldactone 25 on dc -continue Xarelto until advised to stop by Cardiology -cardiac rehab when cleared by Cardiology -f/u Cardio and PCP within 1 week Elevated LFTs likely secondary to shock liver and STEMI, should improve -follow LFTs as outpt Obesity, counseled on dietary changes and weight loss Leukocytosis likely reactive in nature-resolved
--- NOTE | 2017-01-06 17:59 | DISCHARGE SUMMARY ---
PRIMARY CARE PHYSICIAN: Joseph Turner MD ATTENDING AND DISCHARGING PHYSICIAN: David Voss MD DISCHARGE DIAGNOSES: 1. Status post acute anterior and inferior myocardial infarction 12/30/2016. Total occlusion of mid LAD and subtotal occlusion of proximal PDA. Infarct preceded by 4 days of unstable anginal symptoms. 2. Emergency cardiac catheterization 12/30/2016 with the total mid LAD and subtotal proximal RCA occlusions. Subsequent deployment of 3 Medtronic Resolute Integrity drug-eluting stents in LAD. These were 2.25 x 30, 2.25 x 26, and 2.75 x 22 mm drug-eluting stents. Post-dilated with a 3 x 50 mm noncompliant balloon. A 2.25 x 22 mm Medtronic Resolute drug-eluting stent deployed in the PDA. The residual stenosis at the stent site 0%. No coronary, cardiac, or vascular complications. Procedure performed via right radial artery. 3. Moderate left ventricular systolic dysfunction. Echocardiogram December 31 with mid to distal septal and apical severe hypokinesis to akinesis. Inferior severe hypokinesis to akinesis. Small inferoapical mural thrombus of the left ventricle. No significant valvular abnormalities. Normal left ventricular wall thickness. 4. No post-infarct/PCI angina, heart failure, or arrhythmias. 5. Coronary artery disease risk factors include dyslipidemia. Lipid profile obtained during admission with direct LDL 156, HDL 28, total cholesterol 207. Triglycerides 168. Hemoglobin A1c was normal at 5.4. No history of diabetes mellitus. Nonsmoker. No history of hypertension. No family history of premature coronary artery disease. DISCHARGE MEDICATIONS: Aspirin 81 mg daily, atorvastatin 80 mg daily, lisinopril 5 mg daily, metoprolol succinate ER 200 mg daily, sublingual nitroglycerin 0.4 mg p.r.n. chest pain, pantoprazole 40 mg daily, Xarelto 20 mg daily, spironolactone 25 mg daily, ticagrelor 90 mg daily. ALLERGIES AND ADVERSE DRUG REACTIONS: None. DISCHARGE DIET: Low saturated fat diet. DISCHARGE ACTIVITY: No lifting over 10 pounds. No strenuous exertion. DISCHARGE FOLLOWUP: Follow up with Dr. David Voss on 01/08/2017. DISCHARGE INSTRUCTIONS: The patient was instructed to call 911 immediately for any recurrence of the chest discomfort which prompted his admission. He was instructed to take his aspirin and ticagrelor on a daily basis without interruption. He was instructed to call Dr. Voss's office for any questions or problems. HISTORY AND HOSPITAL COURSE: For history and physical, please see dictated history and physical exam performed by Dr. David Voss on 12/30/2016. The patient presented with evidence of an acute anterior and inferior myocardial infarction. No prior history of heart disease. Deployment of 3 drug-eluting stents in the LAD and one in right PDA as documented above. Resolution of chest discomfort following PCI. No post-infarct heart failure or angina. No post-infarct arrhythmias. No vascular complications at the right radial catheterization site. The patient was treated with intravenous heparin and Integrilin during the intervention. Post-procedure, he was started on ticagrelor. He received intravenous Integrilin for at least 18 hours post procedure. He was admitted to the intensive care unit. The electrocardiograms reveal evolving inferior and anterior myocardial infarctions. His electrocardiogram on 01/01/2017 revealed sinus rhythm, inferior Q-waves, poor R-wave progression, V1-V3, ST segment elevations in the inferior and anterior leads, evolving T inversions in these leads. The peak troponin I was 160. The peak CK total was 2847. Peak CK-MB 125.3. Lipid profile as above. Hemoglobin A1c as above. On the day of discharge, the patient was without any cardiac complaints. No vascular complications at right radial catheterization site. His cardiac and pulmonary exams were normal. Labs on the day of discharge revealed WBC 9.32, hemoglobin 14.2, platelet count 240, BUN 11, creatinine 0.85, potassium 3.8, sodium 141, chloride 107, carbon dioxide 24, random glucose 100. Echo during admission report as above. DISCHARGE PLAN: The patient was discharged home. Follow up with Dr. Voss as scheduled. Continue medical follow up with his primary care provider. The patient will be referred to cardiac rehabilitation. His prescriptions were sent electronically by me to his local pharmacy. Over 30 minutes was spent on January 01 in discharge management of this patient. This time was spent by me.
[2017-02-01] MEDS ORDERED: ALPR-411 PO (15:04)
[2017-04-23] MEDS ORDERED: METO100T44 PO (21:24)
== END 2017-01-01 16:15 | disposition home or self-care (01) | DRG 246 ==
LOC: EDBD 11:41 → C.ED 11:50 → C.MSICU 15:01
PROVIDERS: ADMIT Internal Medicine Cardiovascular Disease; ATTEND Internal Medicine Cardiovascular Disease
PROC: B2151ZZ Fluoroscopy of Left Heart using Low Osmolar Contrast (ICD-10-PCS; principal; 2016-12-30 12:14)
PROC: 027137Z Dilation of Coronary Artery, Two Arteries with Four or More Drug-eluting Intraluminal Devices, Percutaneous Approach (ICD-10-PCS; principal; 2016-12-30 12:14)
PROC: B2111ZZ Fluoroscopy of Multiple Coronary Arteries using Low Osmolar Contrast (ICD-10-PCS; principal; 2016-12-30 12:14)
PROC: 4A023N7 Measurement of Cardiac Sampling and Pressure, Left Heart, Percutaneous Approach (ICD-10-PCS; principal; 2016-12-30 12:14)
DX: I21.09 ST elevation (STEMI) myocardial infarction involving other coronary artery of anterior wall (principal); I21.19 ST elevation (STEMI) myocardial infarction involving other coronary artery of inferior wall; I25.110 Atherosclerotic heart disease of native coronary artery with unstable angina pectoris; E78.5 Hyperlipidemia, unspecified; K21.9 Gastro-esophageal reflux disease without esophagitis; E66.9 Obesity, unspecified; Z79.899 Other long term (current) drug therapy; Z83.3 Family history of diabetes mellitus; D72.829 Elevated white blood cell count, unspecified; Z68.31 Body mass index [BMI] 31.0-31.9, adult

== ENCOUNTER → 2017-02-27 | Outpatient (CLI) | payer BC ==
[~2017-02-27] MED LIST changes: +ALPR-411 PO; +ASPEC81 PO; +ASPI81TA28 PO; +ATOR-26 PO; +BRL90 PO; +LISI-729 PO; +LPT40 PO; +LSN5 PO; +METO1TAB69 PO; +NTRGSL/4 UT; +NTRSLP4 SL; +PANT40TA PO; +PRT40 PO; +RIVA1TAB4 PO; +SPIR25TA PO; +SPR25 PO; +TICA1TAB PO; +TPRSR50 PO; +XRL20 PO
[2017-02-27 16:36] LABS: HEMATOCRIT 40.3 % (42-52); MEAN CELL VOLUME 90.8 fL (80-100); MEAN CORPUSCULAR HEMOGLOBIN 31.3 pg (25-34); MEAN CORPUSCULAR HGB CONC 34.5 g/dl (32-36); MEAN PLATELET VOLUME 11.6 fL (7.4-10.4); PLATELET COUNT 216 K/uL (130-400); RED BLOOD COUNT 4.44 M/uL (4.7-6.1); WHITE BLOOD COUNT 6.59 K/uL (4.8-10.8)
[2017-02-27 17:11] LABS: ALT/SGPT 42 U/L (12-78); AST/SGOT 23 U/L (15-37); BLOOD UREA NITROGEN 10 mg/dl (7-18); BUN/CREATININE RATIO 10.1 (10-20); CALCIUM 9.4 mg/dl (8.5-10.1); CARBON DIOXIDE 29 mmol/L (21-32); CHLORIDE 105 mmol/L (98-107); CHOLESTEROL 74 mg/dl (0-200); GLUCOSE 86 mg/dl (70-99); POTASSIUM 4.1 mmol/L (3.5-5.1); SODIUM 139 mmol/L (136-145); TRIGLYCERIDES 88 mg/dl (0-150); VERY LOW DENSITY LIPOPROT CALC 18 mg/dl
[2017-02-27 17:13] LABS: ALB/GLOB RATIO 1.1 (0.9-2); ALKALINE PHOSPHATASE 49 U/L (45-117); CHOLESTEROL/HDL RATIO 2.5; HDL CHOLESTEROL 30 mg/dl
== END | disposition home or self-care (01) ==
LOC: C.LAB1850 15:46
PROVIDERS: ATTEND Internal Medicine Cardiovascular Disease
DX: I21.29 ST elevation (STEMI) myocardial infarction involving other sites (principal)

== ENCOUNTER 2017-04-23 19:17 | Emergency (ER) | payer BC ==
[~2017-04-23] VITALS: Ht 182.9 cm; Wt 89.6 kg
[~2017-04-23 19:17] MED LIST changes: -ASPI81TA28 PO; -ATOR-26 PO; -LISI-729 PO; -METO1TAB69 PO; -NTRGSL/4 UT; -OXYC1TAB3 PO; -PANT40TA PO; -RIVA1TAB4 PO; -SPIR25TA PO; -TICA1TAB PO
[2017-04-23 19:27] VITALS: TEMP 37.1; Ht 182.9 cm; Wt 89.6 kg
[2017-04-23 21:11] LABS: BASO % 0.3 %; BASO ABS # 0.03 K/uL (0-0.2); COMPLETE YES; HEMATOCRIT 39.6 % (42-52); IG% 0.1 %; LYMPH % 18.5 %; LYMPH ABS # 1.67 K/uL (1.2-3.4); MEAN CELL VOLUME 90.6 fL (80-100); MEAN CORPUSCULAR HEMOGLOBIN 31.8 pg (25-34); MEAN CORPUSCULAR HGB CONC 35.1 g/dl (32-36); MEAN PLATELET VOLUME 11.1 fL (7.4-10.4); MONO % 8.9 %; NEUT % 69.2 %; PLATELET COUNT 196 K/uL (130-400); RED BLOOD COUNT 4.37 M/uL (4.7-6.1); WHITE BLOOD COUNT 9.01 K/uL (4.8-10.8)
[2017-04-23] MEDS ORDERED: SPIR25TA PO (21:20)
[2017-04-23] MEDS ORDERED: RIVA1TAB4 PO (21:21)
[2017-04-23] MEDS ORDERED: ATOR-26 PO (21:21)
[2017-04-23] MEDS ORDERED: PANT40TA PO (21:22)
[2017-04-23] MEDS ORDERED: ASPI81TA28 PO (21:23)
[2017-04-23] MEDS ORDERED: METO1TAB69 PO (21:24)
[2017-04-23] MEDS ORDERED: LISI-729 PO (21:25)
[2017-04-23] MEDS ORDERED: TICA1TAB PO (21:26)
[2017-04-23] MEDS ORDERED: NTRGSL/4 UT (21:27)
[2017-04-23 21:34] LABS: BUN/CREATININE RATIO 14.3 (10-20); CALCIUM 9.3 mg/dl (8.5-10.1); CREATININE 0.9 mg/dl (0.60-1.40); POTASSIUM 3.7 mmol/L (3.5-5.1)
--- NOTE | 2017-04-23 22:12 | DIAGNOSTIC IMAGING REPORT ---
CHEST ONE VIEW PORTABLE CLINICAL HISTORY: Central chest pain COMPARISON STUDY: 6017 FINDINGS: The heart is the upper limits of normal in size. There is no failure. There is no focal pulmonary consolidation. There are no pleural effusions. Apparent slight diminished vascularity within the left lung remains unchanged from the prior study, and is therefore not felt to be of acute clinical significance[ IMPRESSION: No active disease in the chest. Electronically signed by: Guero Taylor M.D. 04/23/2017 10:10 PM Dictated Date/Time: 04/23/2017 10:09 PM
--- NOTE | 2017-04-23 22:15 | DIAGNOSTIC IMAGING REPORT ---
R FEMUR 2 VIEWS ROUTINE CLINICAL HISTORY: Right thigh hematoma. fall. anticoagulated. RIGHT LEG PAIN COMPARISON: Right hip performed March 2009 DISCUSSION: No acute fractures are visualized. There are no dislocations. There is a stable corticated density adjacent to the lesser trochanter. IMPRESSION: No fractures identified. Electronically signed by: Guero Taylor M.D. 04/23/2017 10:13 PM Dictated Date/Time: 04/23/2017 10:12 PM
--- NOTE | 2017-04-23 22:16 | DIAGNOSTIC IMAGING REPORT ---
RIGHT THIGH ULTRASONOGRAPHY CLINICAL HISTORY: Right thigh hematoma. fall. anticoagulated. Right thigh pain COMPARISON STUDY: No previous studies for comparison. FINDINGS: There is diffuse edema at the level of the area of visible bruising within the upper right lateral thigh. No focal hematoma is visualized. IMPRESSION: No ultrasonographic evidence of a thigh hematoma Electronically signed by: Guero Taylor M.D. 04/23/2017 10:15 PM Dictated Date/Time: 04/23/2017 10:14 PM
[2017-04-23] MEDS ORDERED: OPTIRAY 320 IV PRN (22:45)
--- NOTE | 2017-04-23 23:22 | EMERGENCY ROOM VISIT NOTE ---
History First contact with patient: 20:32 Chief Complaint: FALL Stated Complaint: BRUISING AND PAIN IN LEG & CHEST,FELL DOWN STAIRS History of Present Illness The patient is a 36 year old male who presents to the Emergency Room via private vehicle accompanied by female with complaints of "bruising and pain in leg, chest, fell downstairs". The patient states that he was walking down a flight of steps, turned his head, with a take a step and lost his balance, falling down to his right hip and sliding down about 13 or 14 steps. He denies striking his head. There was no loss of consciousness. He is concerned because he now has a large bruise forming by the right hip, and is on Xarelto, Brilinta and aspirin. He is also had minimal chest pain since the event. He notes it is been worsening over the past few days. He states that it only occurred after falling down the steps. Review of Systems A complete 10-point Review of Systems was discussed with the patient, with pertinent positives and negatives listed in the History of Present Illness. All remaining Review of Systems questions can be considered negative unless otherwise specified. Past Medical/Surgical History Medical Problems: (1) Acute myocardial infarction involving left anterior descending (LAD) coronary artery (2) Acute myocardial infarction involving right coronary artery Family History Diabetes, heart disease, cancer. Social History Smoking Status: Never Smoker Marital Status: single Occupation Status: unemployed Current/Historical Medications Scheduled Aspirin (Aspirin Ec), 81 MG PO DAILY Atorvastatin (Lipitor), 80 MG PO DAILY Lisinopril (Zestril), 2.5 MG PO DAILY Metoprolol Succ (Toprol Xl) (Toprol-Xl ), 100 MG PO DAILY Nitroglycerin (Nitrostat), 0.4 MG UT PRN Pantoprazole (Protonix), 40 MG PO DAILY Rivaroxaban (Xarelto), 20 MG PO DAILY Spironolactone (Aldactone), 25 MG PO DAILY Ticagrelor (Brilinta), 90 MG PO BID Scheduled PRN Alprazolam (Xanax), 0.25 MG PO DAILY PRN for PRN Oxycodone Ir (Roxicodone Ir), 1-2 TAB PO Q4H PRN for Pain Physical Exam Vital Signs Date Time Temp Pulse Resp B/P (MAP) Pulse Ox O2 Delivery O2 Flow Rate FiO2 9/ 22:32 51 16 107/57 97 Room Air 04/23/17 22:27 58 04/23/17 21:05 58 20 114/71 100 Room Air 04/23/17 19:27 37.1 72 18 98 Room Air Physical Exam VITAL SIGNS - Vital signs and nursing notes were reviewed. Stable. GENERAL - 36-year-old male appearing his stated age who is in no acute distress. Communicates well with provider and answers questions appropriately. SKIN - Without rashes. Bruising noted to the patient's left medial bicep, and diffuse ecchymosis overlying an 8 cm in diameter region overlying the patient's right posterior hip. This protrudes. HEAD - NC/AT. EYES - PERRL with EOMI bilaterally. Sclera anicteric. No hawley signs or raccoons eyes. EARS - No deformities of external structures noted on gross examination bilaterally. No pain elicited with palpation of the tragus bilaterally. No blood from the ear canals. NOSE - Midline and without cyanosis. No epistaxis or purulent drainage noted. Septum midline without deviation or septal hematoma noted. MOUTH/OROPHARYNX - Without perioral cyanosis. NECK -No tenderness to palpation over the cervical spinous processes. No cervical paraspinal muscle tenderness noted. LUNGS - Chest wall symmetric without accessory muscle use, intercostals retractions, or central cyanosis. No flail chest or depressed fractures noted. No paradoxical chest wall movements noted. No tenderness to palpation across the anterior and posterior chest quispe. No tenderness with deep inspiration noted against the examiner's applied pressure to the lateral chest quispe. Normal vesicular breath sounds CTA B/L. No wheezes, rales, or rhonchi appreciated. CARDIAC - RRR with S1/S2. No murmur, rubs, or gallops appreciated. ABDOMEN - Abdominal contour normal and without pulsations or visible masses. BS normoactive all four quadrants. No rebound tenderness or guarding noted. Negative Bhupendra's or Still Joseph's Signs. No tenderness, palpable masses, hepatosplenomegaly, or ascites noted. EXTREMITIES - No gross deformities noted of the extremities ecchymotic protrusion from the right hip. There is tenderness to palpation over the right hip. +5/5 strength noted in UE/LE bilaterally. NEUROLOGIC - Cranial nerves II through XII grossly intact. Sensory intact to light touch throughout. PSYCH - A&O, and cooperates fully with examiner. Pt is very pleasant and interacts well with examiner. Medical Decision & Procedures ER Provider Diagnostic Interpretation: CHEST ONE VIEW PORTABLE CLINICAL HISTORY: Central chest pain COMPARISON STUDY: 6017 FINDINGS: The heart is the upper limits of normal in size. There is no failure. There is no focal pulmonary consolidation. There are no pleural effusions. Apparent slight diminished vascularity within the left lung remains unchanged from the prior study, and is therefore not felt to be of acute clinical significance[ IMPRESSION: No active disease in the chest. Electronically signed by: Guero Taylor M.D. 04/23/2017 10:10 PM Dictated Date/Time: 04/23/2017 10:09 PM RIGHT THIGH ULTRASONOGRAPHY CLINICAL HISTORY: Right thigh hematoma. fall. anticoagulated. Right thigh pain COMPARISON STUDY: No previous studies for comparison. FINDINGS: There is diffuse edema at the level of the area of visible bruising within the upper right lateral thigh. No focal hematoma is visualized. IMPRESSION: No ultrasonographic evidence of a thigh hematoma Electronically signed by: Guero Taylor M.D. 04/23/2017 10:15 PM Dictated Date/Time: 04/23/2017 10:14 PM R FEMUR 2 VIEWS ROUTINE CLINICAL HISTORY: Right thigh hematoma. fall. anticoagulated. RIGHT LEG PAIN COMPARISON: Right hip performed March 2009 DISCUSSION: No acute fractures are visualized. There are no dislocations. There is a stable corticated density adjacent to the lesser trochanter. IMPRESSION: No fractures identified. Electronically signed by: Guero Taylor M.D. 04/23/2017 10:13 PM Dictated Date/Time: 04/23/2017 10:[address] of the abdomen and pelvis: Under distended gallbladder. Tiny hypodensities in the left kidney or too small to characterize. No hydronephrosis or stone. Tiny fat containing bilateral inguinal hernias. Calcification in the right prostate. Normal appendix. No bowel obstruction or inflammation. Nondilated fluid and gas filled small bowel loops are nonspecific. Element of enteritis really is not excluded. No acute fracture. Tiny fat containing of the cranium. Distended bladder. Read by stat read. Laboratory Results 04/23/17 21:05 Red Blood Count 4.37, Mean Corpuscular Volume 90.6, Mean Corpuscular Hemoglobin 31.8, Mean Corpuscular Hemoglobin Concent 35.1, Mean Platelet Volume 11.1, Neutrophils (%) (Auto) 69.2, Lymphocytes (%) (Auto) 18.5, Monocytes (%) (Auto) 8.9, Eosinophils (%) (Auto) 3.0, Basophils (%) (Auto) 0.3, Neutrophils # (Auto) 6.23, Lymphocytes # (Auto) 1.67, Monocytes # (Auto) 0.80, Eosinophils # (Auto) 0.27, Basophils # (Auto) 0.03 04/23/17 21:05 Test 04/23/17 21:05 White Blood Count 9.01 K/uL (4.8-10.8) Red Blood Count 4.37 M/uL (4.7-6.1) Hemoglobin 13.9 g/dL (14.0-18.0) Hematocrit 39.6 % (42-52) Mean Corpuscular Volume 90.6 fL (80-100) Mean Corpuscular Hemoglobin 31.8 pg (25-34) Mean Corpuscular Hemoglobin Concent 35.1 g/dl (32-36) Platelet Count 196 K/uL (130-400) Mean Platelet Volume 11.1 fL (7.4-10.4) Neutrophils (%) (Auto) 69.2 % Lymphocytes (%) (Auto) 18.5 % Monocytes (%) (Auto) 8.9 % Eosinophils (%) (Auto) 3.0 % Basophils (%) (Auto) 0.3 % Neutrophils # (Auto) 6.23 K/uL (1.4-6.5) Lymphocytes # (Auto) 1.67 K/uL (1.2-3.4) Monocytes # (Auto) 0.80 K/uL (0.11-0.59) Eosinophils # (Auto) 0.27 K/uL (0-0.5) Basophils # (Auto) 0.03 K/uL (0-0.2) RDW Standard Deviation 43.0 fL (36.4-46.3) RDW Coefficient of Variation 12.9 % (11.5-14.5) Immature Granulocyte % (Auto) 0.1 % Immature Granulocyte # (Auto) 0.01 K/uL (0.00-0.02) Anion Gap 8.0 mmol/L (3-11) Est Creatinine Clear Calc Drug Dose 122.2 ml/min Estimated GFR () 125.1 Estimated GFR (Non- 108.0 BUN/Creatinine Ratio 14.3 (10-20) Calcium Level 9.3 mg/dl (8.5-10.1) Total Bilirubin 0.8 mg/dl (0.2-1) Aspartate Amino Transf (AST/SGOT) 18 U/L (15-37) Alanine Aminotransferase (ALT/SGPT) 29 U/L (12-78) Alkaline Phosphatase 69 U/L (45-117) Troponin I 0.019 ng/ml (0-0.045) Total Protein 7.9 gm/dl (6.4-8.2) Albumin 4.0 gm/dl (3.4-5.0) Globulin 3.9 gm/dl (2.5-4.0) Albumin/Globulin Ratio 1.0 (0.9-2) Medical Decision Patient was seen and evaluated as above. He presents to us today status post fall with right hip pain, bruising and lobe of the chest pain. At that EKG reveals sinus bradycardia, with sinus arrhythmia, rate of 56 bpm. Old infarcts noted. No evidence of active [facility]. Troponin negative. CBC reveals anemia that is stable. No leukocytosis. Metabolic workup negative for acute process. No evidence of kidney or liver failure. Troponin negative. Chest x-ray no acute process. Right thigh ultrasound for hematoma negative. CT abdomen and pelvis was then ordered after discussing the case with the attending physician, and reveals no acute process with results as above. The patient appears stable for outpatient management with conservative measures as discussed. He is given an Sourav wrap for the thigh for compression. He is to follow-up with his family doctor regarding his injury. He is to return with worsening. He was educated upon worrisome symptoms in which to return, had questions on discharge, and was discharged home in good condition. Patient was hypotensive, bradycardic but notes this is normal for him. He was also seen and evaluated by the attending physician. Short prescription for pain medication was written if this pain would worsen. Work note was written. In the evaluation and treatment of this patient, the following differential diagnoses were considered: Hip Fracture, Hip Dislocation, Greater Trochanteric Bursitis, Musculoskeletal Pain, Lumbar Radiculopathy. [place] Drug Monitoring Program Search Results: patient reviewed within database, no issues identified Impression Primary Impression: Fall Additional Impressions: Contusion of multiple sites Anemia Departure Information Dispostion Home / Self-Care Condition GOOD Prescriptions Oxycodone Ir (Roxicodone Ir) 5 Mg Tab 1-2 TAB PO Q4H Y for Pain, #15 TAB For Initial Treatment Prov: Kayode Robertson PA-C 04/23/17 Referrals Joseph Turner MD (PCP) Patient Instructions [facility] Additional Instructions You have been treated in the Emergency Department for Hip Pain. You have been prescribed Oxy IR to be used for pain control. This is a narcotic medication. You cannot drive or consume alcohol while on this medicine. This medicine should only be used for pain that cannot be controlled with over-the- counter pain medicines. For pain control, you can use the following lxru-yxa-ejfwmal medicines: - Regular strength (325mg/tab) Tylenol (acetaminophen) 2 tabs every 4-6 hours as needed. Do not exceed 12 tablets in a 24 hour period. Avoid taking more than 3 grams (3000 mg) of Tylenol per day. This includes any other sources of acetaminophen you may take on a regular basis. If this is a recent injury (<24 hrs), ice can be applied to the area of pain for the first 3 days to help decrease pain and inflammation. Ice massages can be performed by freezing water in a paper cup, peeling back the cup to expose the ice and then massaging over the affected area. Be cautious with your hip movements until your pain is tolerable. Return to the Emergency Department if your current symptoms worsen despite treatment course outlined above. Please follow-up with your family doctor regarding your injuries, and your imaging studies. R FEMUR 2 VIEWS ROUTINE CLINICAL HISTORY: Right thigh hematoma. fall. anticoagulated. RIGHT LEG PAIN COMPARISON: Right hip performed March 2009 DISCUSSION: No acute fractures are visualized. There are no dislocations. There is a stable corticated density adjacent to the lesser trochanter. IMPRESSION: No fractures identified. Problem Qualifiers
[2017-04-23] MEDS ORDERED: OXYC1TAB3 PO (23:58)
[2017-04-24] MEDS ORDERED: DIPHTHERIA/TETANUS/PERTUSSIS 0.5 ML SYR/VIAL IM. ONE
[2017-04-24 00:13] VITALS: BP 122/74; PULSE 74; O2SAT 98
--- NOTE | 2017-04-24 06:29 | DIAGNOSTIC IMAGING REPORT ---
ABD/PELVIS IV CONTRAST ONLY CT DOSE: 372.04 mGy.cm HISTORY: Trauma Fall down steps, right hip pain TECHNIQUE: Multiaxial CT images of the abdomen and pelvis were performed following the use of intravenous contrast. A dose lowering technique was utilized adhering to the principles of ALARA. COMPARISON STUDY: None. FINDINGS: The lung bases are clear. The liver, spleen, gallbladder, pancreas, kidneys, and adrenal glands are within normal limits. No bowel wall thickening or obstruction. The pelvic organs are unremarkable. No suspicious lytic or blastic osseous lesions. Mild bladder distention. Soft tissue edema lateral to the right hip. IMPRESSION: Soft tissue edema/contusion lateral to the right hip and thigh. Otherwise negative study of the abdomen and pelvis. Mild bladder distention. The above report was generated using voice recognition software. It may contain grammatical, syntax or spelling errors. Electronically signed by: Jose E Calhoun M.D. 04/24/2017 6:28 AM Dictated Date/Time: 04/24/2017 6:22 AM
== END 2017-04-24 00:16 | disposition home or self-care (01) ==
LOC: C.EDB 19:18 → C.EDD 04-24 00:16
DX: S70.01XA Contusion of right hip, initial encounter (principal); S40.022A Contusion of left upper arm, initial encounter; W10.9XXA Fall (on) (from) unspecified stairs and steps, initial encounter; D64.9 Anemia, unspecified; Z79.01 Long term (current) use of anticoagulants; Z79.82 Long term (current) use of aspirin; Z79.899 Other long term (current) drug therapy; I25.2 Old myocardial infarction; Z83.3 Family history of diabetes mellitus; Z80.9 Family history of malignant neoplasm, unspecified; Z23 Encounter for immunization

== ENCOUNTER 2018-10-16 18:12 | Observation (INO) ==
[2018-10-16] MEDS ORDERED: NITROGLYCERIN SL 0.4 MG/TAB TAB SL PRN (18:50)
[2018-10-16] MEDS ORDERED: ASPIRIN CHEW 324 MG PO STA (18:50)
[2018-10-16 18:56] LABS: Red Blood Count 4.72 M/uL (4.7-6.1); White Blood Count 7.01 K/uL (4.8-10.8)
[2018-10-16 18:57] LABS: Basophils # (auto) 0.03 K/uL (0-0.2); Basophils % (auto) 0.4 %; Eosinophils # (auto) 0.26 K/uL (0-0.5); Eosinophils % (auto) 3.7 %; Hematocrit (blood only) 42.5 % (42-52); Hemoglobin 15.3 g/dL (14.0-18.0); Immature Granulocytes # (auto) 0.01 K/uL (0.00-0.02); Immature Granulocytes % (auto) 0.1 %; Lymphocytes # (auto) 1.96 K/uL (1.2-3.4); Mean Platelet Volume 11.1 fL (7.4-10.4); Monocytes # (auto) 0.63 K/uL (0.11-0.59); Neutrophils # (auto) 4.12 K/uL (1.4-6.5); Neutrophils % (auto) 58.8 %; Platelet Count 209 K/uL (130-400); RDW Coefficient of Variation 12.1 % (11.5-14.5); RDW Standard Deviation 39.8 fL (36.4-46.3)
[2018-10-16 19:13] LABS: Alanine Aminotransferase 42 U/L (12-78); Albumin Level 4.4 gm/dl (3.4-5.0); Aspartate Aminotransferase 23 U/L (15-37); Blood Urea Nitrogen 9 mg/dl (7-18); Carbon Dioxide 27 mmol/L (21-32); Chloride 106 mmol/L (98-107); Creatinine Clr Calc Pharmacy 102.6 ml/min; Est GFR (African American) 102.4; Est GFR (Non-African American) 88.4; Glucose 96 mg/dl (70-99); Potassium 3.7 mmol/L (3.5-5.1); Sodium 139 mmol/L (136-145)
[2018-10-16 19:18] LABS: Albumin Globulin Ratio 1.1 (0.9-2); Alkaline Phosphatase 49 U/L (45-117); Bilirubin,Total 0.7 mg/dl (0.2-1); Globulin 3.9 gm/dl (2.5-4.0); Total Protein 8.3 gm/dl (6.4-8.2); Troponin I < 0.015 ng/ml (0-0.045)
--- NOTE | 2018-10-16 19:37 | XRay Report ---
XR chest 1V portable CLINICAL HISTORY: Chest Pain pain COMPARISON STUDY: 04/23/2017 FINDINGS: The bones soft tissues and hemidiaphragms are normal. The cardiomediastinal silhouette is n ormal. The lungs are clear. The pulmonary vasculature is normal. Mild stable cardiomegaly IMPRESSION: Negative chest. The above report was generated using voice recognition software. It may contain grammatical, syntax or spelling errors. Electronically signed by: Jose E Calhoun M.D. 10/16/2018 7:35 PM
--- NOTE | 2018-10-16 21:59 | History & Physical Report ---
Date of Service October 16, 2018 Assessment & Plan (1) Atypical chest pain: 38-year-old male with significant recent cardiac history status post stents, who presents with intermittent chest pain progressively worsening over the day associated with left arm numbness, dyspnea on exertion. PMH sig for coronary artery disease: Acute anterior and inferior RI December 2016 with total mid LAD occlusion and subtotal proximal PDA occlusion on cardiac catheterization. Successful intervention to the LAD (3 overlapping stents) and PDA. On statin, beta abdi and CALDERON inhibitor, Plavix 75 mg daily, aspirin 81 mg daily. Most recent echo shows improvement in LV systolic function: Echocardiogram 06/13/17: LV systolic function low normal. EF 50-55%. Inferior wall hypokinesis. Apical akinesis. No significant valvular pathology. No thrombus. On spironolactone. Assessment -Chest pain secondary to angina versus RI versus musculoskeletal -Patient's physical exam in the left arm is consistent with possible carpal tunnel syndrome as well. 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 -Echo in the morning -trend troponins -Consult cardiology as he is established with them. He sees Dr. Voss normally. FEN/GI: N.p.o. after midnight. No fluids indicated at this time. DVT ppx: SCDs, aspirin. CODE STATUS: Full code DISPO: Telemetry (2) Carpal tunnel syndrome of left wrist: Defer to PCP, recommend follow-up with physical therapy on an outpatient setting. (3) GERD (gastroesophageal reflux disease): Continue home Protonix 40 daily. (4) CAD (coronary artery disease): Continue home aspirin, atorvastatin 80 mg, Plavix, lisinopril 2.5 mg, Toprol 100 mg, Aldactone 25 mg daily. History of Present Illness Primary Care Provider: Joseph Turner This is a 38-year-old gentleman with significant cardiac history as below. 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 He was sitting at his desk when this would happen. It would last for several minutes then dissipate then come back. Progressively over the day the pain became more present, and was associated with midsternal chest pain which he describes as a dull ache. He also endorses palpitations, anxiety, and fatigability going up a flight of stairs which is uncharacteristic for him. He states he does get numbness and tingling down his left forearm from time to time, especially after sleeping with his left wrist flexed overnight. Cardiac history as below. He is compliant with all his follow-ups and was due to see Dr. Voss this week with follow-up of labs. PMH 1. Coronary artery disease: Acute anterior and inferior RI December 2016 with total mid LAD occlusion and subtotal proximal PDA occlusion on cardiac catheterization. Successful intervention to the LAD (3 overlapping stents) and PDA. On statin, beta abdi and CALDERON inhibitor, Plavix 75 mg daily, aspirin 81 mg daily. 2. Ischemic cardiomyopathy: Most recent echo shows improvement in LV systolic function: Echocardiogram 06/13/17: LV systolic function low normal. EF 50-55%. Inferior wall hypokinesis. Apical akinesis. No significant valvular pathology. No thrombus. On spironolactone. 3. Dyslipidemia - on statin tx 4. GERD - on ppi PSH 1. 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 Denies tobacco, drug use, or alcohol. Allergies Allergy/AdvReac Type Severity Reaction Status Date / Time No Known Allergies Allergy NONE Unverified 10/16/18 19:03 Home Medications Home Medications Medication Instructions Recorded Confirmed Type aspirin [Aspir-81] 81 mg PO DAILY 10/16/18 10/16/18 History atorvastatin [Lipitor] 80 mg PO DAILY 10/16/18 10/16/18 History clopidogrel [Plavix] 75 mg PO DAILY 10/16/18 10/16/18 History lisinopril [Zestril] 2.5 mg PO DAILY 10/16/18 10/16/18 History metoprolol succinate [Toprol XL] 100 mg PO DAILY 10/16/18 10/16/18 History nitroglycerin [Nitrostat] 0.4 mg SUBLINGUAL UD PRN 10/16/18 10/16/18 History pantoprazole [Protonix] 40 mg PO DAILY 10/16/18 10/16/18 History spironolactone [Aldactone] 25 mg PO DAILY 10/16/18 10/16/18 History nitroglycerin [Nitrostat] 0.4 mg SUBLINGUAL ONCE PRN 30 Days 10/17/18 Rx #30 tab Past Med/Surg History Medical History Acute myocardial infarction involving left anterior descending (LAD) coronary artery Acute myocardial infarction involving right coronary artery Family History Other Coronary heart disease Social History Preferred Language: Albanian Beliefs That Will Affect Care: None Current Living Situation: Significant Other Other Information That Helps Us Care for You: No Feels Safe at Home: Yes Safety Concerns: Feels Safe At This Time Smoking Status: Never smoker Hx Alcohol Use: Yes Hx Substance Use: No Review of Systems All systems reviewed & are unremarkable except as noted in HPI & below Physical Exam Vital Signs (Past 24 Hours): Last Vital Signs Temp 36.7 C 10/16/18 18:15 Pulse 56 L 10/16/18 19:47 Resp 16 10/16/18 19:47 BP 102/68 10/16/18 19:47 Pulse Ox 96 10/16/18 19:47 Physical Exam: Vitals noted as above and within normal limits with the exception of borderline hypotension. GENERAL: Awake, alert to person, place, and time, nontoxic-appearing, in no distress HENT: Normocephalic, atraumatic. . Mucus membranes appear moist. EYES: Normal conjunctiva. Sclera non-icteric. EOMI. NECK: Supple. Full range of motion. No JVD RESPIRATORY: Clear to auscultation. Normal work of breathing. CARDIAC: Regular rate, normal rhythm. Extremities warm and well perfused, 2+ radial pulses bilaterally; 2+ posterior tibialis pulses bilaterally. ABDOMEN: Soft, non-distended. No tenderness to palpation in all four quadrants. No rebound or guarding. No masses. Bowel sounds are normal. LOWER EXTREMITIES: Inspection of calves reveal equal size bilaterally. They are non-tender. No edema. No discoloration. NEURO: No focal gross focal motor deficits noted. Numbness over the median nerve and radial nerve distribution in the left upper arm. + Phalen's test. CN II-XII grossly in tact. SKIN: Rash not present. No jaundice noted. Significant lesions not present. PSYCH: Appropriate mood and affect. Cooperative. Exam as done by Analy Veloz MD, [employer]. Results & Data Laboratory Results 10/16/18 10/16/18 10/16/18 Range/Units 20:30 18:42 18:42 WBC 7.01 (4.8-10.8) K/uL RBC 4.72 (4.7-6.1) M/uL Hgb 15.3 (14.0-18.0) g/dL Hct 42.5 (42-52) % MCV 90.0 (80-100) fL MCH 32.4 (25-34) pg MCHC 36.0 (32-36) g/dL RDW Std Deviation 39.8 (36.4-46.3) fL RDW Coeff of Rachel 12.1 (11.5-14.5) % Plt Count 209 (130-400) K/uL MPV 11.1 H (7.4-10.4) fL Immature Gran % (Auto) 0.1 % Neut % (Auto) 58.8 % Lymph % (Auto) 28.0 % [place] % (Auto) 9.0 % Eos % (Auto) 3.7 % Baso % (Auto) 0.4 % Immature Gran # (Auto) 0.01 (0.00-0.02) K/uL Neut # (Auto) 4.12 (1.4-6.5) K/uL Lymph # (Auto) 1.96 (1.2-3.4) K/uL [place] # (Auto) 0.63 H (0.11-0.59) K/uL Eos # (Auto) 0.26 (0-0.5) K/uL Baso # (Auto) 0.03 (0-0.2) K/uL Sodium 139 (136-145) mmol/L Potassium 3.7 (3.5-5.1) mmol/L Chloride 106 (98-107) mmol/L Carbon Dioxide 27 (21-32) mmol/L Anion Gap 6.0 (3-11) BUN 9 (7-18) mg/dl Creatinine 1.05 (0.6-1.4) mg/dl Est Cr Clr Drug Dosing 102.6 ml/min Est GFR ( Amer) 102.4 Est GFR (Non-Af Amer) 88.4 BUN/Creatinine Ratio 9.0 L (10-20) Glucose 96 (70-99) mg/dl Calcium 9.0 (8.5-10.1) mg/dl Total Bilirubin 0.7 (0.2-1) mg/dl AST 23 (15-37) U/L ALT 42 (12-78) U/L Alkaline Phosphatase 49 (45-117) U/L Troponin I < 0.015 < 0.015 (0-0.045) ng/ml Total Protein 8.3 H (6.4-8.2) gm/dl Albumin 4.4 (3.4-5.0) gm/dl Globulin 3.9 (2.5-4.0) gm/dl Albumin/Globulin Ratio 1.1 (0.9-2) Lipase 235 (73-393) U/L Supervising Physician Co-Signing Physician Notes Attending addendum: I have physically seen this patient, have supervised the medical residents activities, and agree with the H&P unless as otherwise noted. Assessment and Plan: Chest pain of uncertain etiology/CAD/stented coronary arteries LAD, RCA/status post RI December 2016-- The patient will be admitted to telemetry for serial cardiac enzymes, serial EKG's, cardiac rhythm monitoring and a 2-D echocardiogram with Dopplers. Continue aspirin 81 mg daily, clopidogrel 75 mg daily, lisinopril 2.5 mg daily, metoprolol succinate 100 mg p.o. daily, spironolactone 25 mg p.o. daily nitroglycerin sublingual as needed, and atorvastatin 80 mg p.o. daily. Consult cardiology. Remainder of orders notations as noted. Resident Activity Tracking Resident Involvement: Resident Care Provided Care Provided: Adult [facility] Medicine
[2018-10-17] MEDS ORDERED: MAGNESIUM HYDROXIDE SUSP 30 ML UDC PO PRN (01:01)
[2018-10-17] MEDS ORDERED: ONDANSETRON INJ 2 MG/ML 2 ML VIAL IV PRN (01:01)
[2018-10-17] MEDS ORDERED: NITROGLYCERIN SL 0.4 MG/TAB TAB SL PRN (01:01)
[2018-10-17] MEDS ORDERED: ALUMINUM/MAGNESIUM SUSP 30 ML UDC PO PRN (01:01)
[2018-10-17] MEDS ORDERED: POLYETHYLENE (MIRALAX) 17 GM PACK PO PRN (01:01)
[2018-10-17] MEDS ORDERED: ACETAMINOPHEN 325 MG TAB PO PRN (01:01)
--- NOTE | 2018-10-17 01:57 | Emergency Department Note ---
Entered by Chandana Valadez acting as a scribe for John Morrison MD History of Present Illness General Chief complaint: Chest Pain Stated complaint: INTERMITTEN CHEST PAIN, LEFT ARM PAIN-HX 3 STENTS Time Seen by Provider: 10/16/18 18:30 Source: patient History of Present Illness Provider complaint: Chest pain Onset (ago): hour(s) greater than 10 Location: chest Radiation: extremity (Left arm) Severity: similar to prior episodes Pain Consistency: + intermittent Maximum Pain Intensity: 1 Quality: + other (Numbness) Exacerbated By: + none Associated symptoms: + chest pain and + other (No leg swelling, fatigue); no diaphoresis and no nausea/vomiting The patient is a 38 year old male w/ PMHx IA, CAD, LAD and PDA stents, and blood clots who presents to the ED w/ CC of intermittent chest pain beginning this morning around 0700 and has been worsening throughout the day. The patient also has had left upper extremity numbness throughout the day that reminds him of his last heart attack he had about 2 years ago. When his last heart attack occurred he had the PDA and LAD stents placed. He denies any, trauma, exertional symptoms, nausea, vomiting, leg swelling or episodes of diaphoresis but he did note he was tired most of the day. He is currently on Plavix and takes all of his medications on a daily basis without missing any doses. The patient did admit to drinking alcohol. Home Medications Home Medications Medication Instructions Recorded Confirmed Type aspirin [Aspir-81] 81 mg PO DAILY 10/16/18 10/16/18 History atorvastatin [Lipitor] 80 mg PO DAILY 10/16/18 10/16/18 History clopidogrel [Plavix] 75 mg PO DAILY 10/16/18 10/16/18 History lisinopril [Zestril] 2.5 mg PO DAILY 10/16/18 10/16/18 History metoprolol succinate [Toprol XL] 100 mg PO DAILY 10/16/18 10/16/18 History nitroglycerin [Nitrostat] 0.4 mg SUBLINGUAL UD PRN 10/16/18 10/16/18 History pantoprazole [Protonix] 40 mg PO DAILY 10/16/18 10/16/18 History spironolactone [Aldactone] 25 mg PO DAILY 10/16/18 10/16/18 History nitroglycerin [Nitrostat] 0.4 mg SUBLINGUAL ONCE PRN 30 Days 10/17/18 Rx #30 tab Allergies Allergy/AdvReac Type Severity Reaction Status Date / Time No Known Allergies Allergy NONE Unverified 10/16/18 19:03 Past Med/Surg History Medical History Acute myocardial infarction involving left anterior descending (LAD) coronary artery Acute myocardial infarction involving right coronary artery Family History Other Coronary heart disease Social History Preferred Language: Maltese Beliefs That Will Affect Care: None Current Living Situation: Significant Other Other Information That Helps Us Care for You: No Feels Safe at Home: Yes Safety Concerns: Feels Safe At This Time Smoking Status: Never smoker Hx Alcohol Use: Yes Hx Substance Use: No Review of Systems See HPI for pertinent positives & negatives. and A total of 10 systems reviewed and were otherwise negative Physical Exam Vital Signs Vital Signs - 24 hr 10/16/18 19:47 10/16/18 23:12 10/17/18 00:00 Temperature Temperature Source Pulse Rate 58 L Pulse Rate [Left] Pulse Rate [Right] 56 L 48 L Pulse Rhythm [Right] Regular Regular Pulse Strength [Right] Normal Normal Respiratory Rate 16 16 15 Respiratory Effort / Characteristics Non-Labored Non-Labored Spontaneous Respiratory Depth Normal Normal Respiratory Pattern Blood Pressure 109/68 Blood Pressure [Left Arm] Blood Pressure [Right Arm] 102/68 138/94 Blood Pressure Mean 81 Blood Pressure Mean [Left Arm] Blood Pressure Mean [Right Arm] 79 108 Blood Pressure Position [Left Arm] Blood Pressure Position [Right Arm] Sitting Pulse Oximetry 96 98 Oxygen Delivery Method Room Air Room Air 10/17/18 00:01 10/17/18 00:15 10/17/18 00:30 Temperature 36.5 C Temperature Source Oral Pulse Rate 65 46 L Pulse Rate [Left] Pulse Rate [Right] 53 L Pulse Rhythm [Right] Regular Pulse Strength [Right] Normal Respiratory Rate 16 21 18 Respiratory Effort / Characteristics Non-Labored Respiratory Depth Normal Respiratory Pattern Regular Blood Pressure Blood Pressure [Left Arm] 122/70 Blood Pressure [Right Arm] Blood Pressure Mean Blood Pressure Mean [Left Arm] 87 Blood Pressure Mean [Right Arm] Blood Pressure Position [Left Arm] Lying Blood Pressure Position [Right Arm] Pulse Oximetry 96 96 Oxygen Delivery Method Room Air Room Air 10/17/18 00:38 10/17/18 04:34 10/17/18 07:25 Temperature 36.3 C L 36.6 C Temperature Source Oral Oral Pulse Rate 49 L Pulse Rate [Left] 53 L Pulse Rate [Right] 54 L Pulse Rhythm [Right] Pulse Strength [Right] Respiratory Rate 16 16 Respiratory Effort / Characteristics Non-Labored Spontaneous Respiratory Depth Normal Respiratory Pattern Regular Blood Pressure Blood Pressure [Left Arm] 102/66 110/71 Blood Pressure [Right Arm] Blood Pressure Mean Blood Pressure Mean [Left Arm] 78 84 Blood Pressure Mean [Right Arm] Blood Pressure Position [Left Arm] Lying Blood Pressure Position [Right Arm] Pulse Oximetry 96 97 Oxygen Delivery Method Room Air 10/17/18 10:45 10/17/18 17:42 Temperature 36.7 C 36.7 C Temperature Source Oral Pulse Rate Pulse Rate [Left] 62 62 Pulse Rate [Right] 54 L Pulse Rhythm [Right] Pulse Strength [Right] Respiratory Rate 16 16 Respiratory Effort / Characteristics Respiratory Depth Respiratory Pattern Blood Pressure Blood Pressure [Left Arm] 104/65 104/65 Blood Pressure [Right Arm] 138/94 Blood Pressure Mean Blood Pressure Mean [Left Arm] 78 Blood Pressure Mean [Right Arm] Blood Pressure Position [Left Arm] Lying Blood Pressure Position [Right Arm] Pulse Oximetry 96 96 Oxygen Delivery Method Room Air GENERAL: Well appearing, well nourished, NAD, non-toxic. EYE EXAM: Normal conjunctiva. PERRL, no anisocoria and EOM's grossly intact w/o pain. OROPHARYNX: Moist MM. No exudate, posterior pharynx is clear, no tonsillar/uvular deviation or swelling. NECK: Supple, no nuchal rigidity, no adenopathy, non-tender. No signs of meningismus. LUNGS: Clear to auscultation. Normal chest wall mechanics. HEART: NSR, no MRG. ABDOMEN: Abdomen soft, non-tender, normo-active bowel sounds, no masses, no rebound or guarding. CHEST: No reproducible chest wall pain. BACK: No CVA TTP. SKIN: No rashes and no bruising. UPPER EXTREMITIES: Upper extremities are grossly normal. LOWER EXTREMITIES: No pitting edema. No calf pain. negative Luther's sign. NEURO EXAM: A and O x3. GCS 15. Cranial nerves II-XII grossly intact, normal speech, 5/5 strength throughout Moves all 4 extremities on command w/o issue. No sensory deficits. Course 184: Past medical records reviewed. The patient was evaluated in room A09B, and a complete history and physical examination were performed. 2030: I reevaluated the patient and he is still having some numbness. I am going to do a repeat trop and talk to cardiology. 2124: I spoke Dr. Thompson - Cardiology who recommends keeping the patient for observation. 2229: I spoke to Dr. Mcnair [facility] Hospitalist about the patient's case and he is going to accept him for further evaluation. Consultations Consultation #1: I spoke Dr. Thompson - Cardiology who recommends keeping the patient for observation. Time: 21:25 Consultation #2: I spoke to Dr. Mcnair [facility] Hospitalist about the patient's case and he is going to accept him for further evaluation. Time: 22:30 Administered Medications Discontinued Medications Aspirin (Aspirin) 243 mg PO NOW STA Stop: 10/16/18 18:51 Last Admin: 10/16/18 18:58 Dose: 324 mg Documented by: [id number] Aspirin (Ecotrin Ectab) 81 mg PO DAILY ADALBERTO Stop: 11/16/18 08:59 Last Admin: 10/17/18 08:09 Dose: 81 mg Documented by: [id number] Atorvastatin Calcium (Lipitor) 80 mg PO DAILY ADALBERTO Stop: 11/16/18 08:59 Last Admin: 10/17/18 08:09 Dose: 80 mg Documented by: [id number] Clopidogrel Bisulfate (Plavix) 75 mg PO DAILY ADALBERTO Stop: 11/16/18 08:59 Last Admin: 10/17/18 08:09 Dose: 75 mg Documented by: [id number] Hydroxyzine HCl (Vistaril) 25 mg PO NOW STA Stop: 10/16/18 20:55 Last Admin: 10/16/18 20:58 Dose: 25 mg Documented by: [id number] Lisinopril (Zestril) 2.5 mg PO DAILY ADALBERTO Stop: 11/16/18 08:59 Last Admin: 10/17/18 08:09 Dose: 2.5 mg Documented by: [id number] Metoprolol Succinate (Toprol Xl) 100 mg PO DAILY [facility] Stop: 11/16/18 08:59 Last Admin: 10/17/18 09:36 Dose: 100 mg Documented by: [id number] Admin: 10/17/18 08:05 Dose: Not Given Documented by: [id number] Pantoprazole Sodium (Protonix) 40 mg PO DAILY ADALBERTO Stop: 11/16/18 08:59 Last Admin: 10/17/18 08:09 Dose: 40 mg Documented by: [id number] Regadenoson (Lexiscan) Confirm Administered Dose 0.4 mg IV .[facility] Stop: 10/17/18 10:05 Last Admin: 10/17/18 15:51 Dose: Not Given Documented by: [id number] Spironolactone (Aldactone) 25 mg PO DAILY [facility] Stop: 11/16/18 08:59 Last Admin: 10/17/18 08:09 Dose: 25 mg Documented by: [id number] Medical Decision Making Medical Records Attestation: I reviewed the patient's medical records. Home Medications Current Medication List: was personally reviewed by me Laboratory Data Attestation: I reviewed the patient's lab results. Result diagrams: 10/16/18 18:42 10/17/18 01:37 Lab Results 10/16/18 10/16/18 10/16/18 Range/Units 18:42 18:42 20:30 WBC 7.01 (4.8-10.8) K/uL RBC 4.72 (4.7-6.1) M/uL Hgb 15.3 (14.0-18.0) g/dL Hct 42.5 (42-52) % MCV 90.0 (80-100) fL MCH 32.4 (25-34) pg MCHC 36.0 (32-36) g/dL RDW Std Deviation 39.8 (36.4-46.3) fL RDW Coeff of Rachel 12.1 (11.5-14.5) % Plt Count 209 (130-400) K/uL MPV 11.1 H (7.4-10.4) fL Immature Gran % (Auto) 0.1 % Neut % (Auto) 58.8 % Lymph % (Auto) 28.0 % [place] % (Auto) 9.0 % Eos % (Auto) 3.7 % Baso % (Auto) 0.4 % Immature Gran # (Auto) 0.01 (0.00-0.02) K/uL Neut # (Auto) 4.12 (1.4-6.5) K/uL Lymph # (Auto) 1.96 (1.2-3.4) K/uL [place] # (Auto) 0.63 H (0.11-0.59) K/uL Eos # (Auto) 0.26 (0-0.5) K/uL Baso # (Auto) 0.03 (0-0.2) K/uL PT (9.0-12.0) Seconds INR (0.9-1.1) Sodium 139 (136-145) mmol/L Potassium 3.7 (3.5-5.1) mmol/L Chloride 106 (98-107) mmol/L Carbon Dioxide 27 (21-32) mmol/L Anion Gap 6.0 (3-11) BUN 9 (7-18) mg/dl Creatinine 1.05 (0.6-1.4) mg/dl Est Cr Clr Drug Dosing 102.6 ml/min Est GFR ( Amer) 102.4 Est GFR (Non-Af Amer) 88.4 BUN/Creatinine Ratio 9.0 L (10-20) Glucose 96 (70-99) mg/dl Estimat Average Glucose mg/dl Hemoglobin A1c (4.5-5.6) % Calcium 9.0 (8.5-10.1) mg/dl Total Bilirubin 0.7 (0.2-1) mg/dl AST 23 (15-37) U/L ALT 42 (12-78) U/L Alkaline Phosphatase 49 (45-117) U/L Troponin I < 0.015 < 0.015 (0-0.045) ng/ml Total Protein 8.3 H (6.4-8.2) gm/dl Albumin 4.4 (3.4-5.0) gm/dl Globulin 3.9 (2.5-4.0) gm/dl Albumin/Globulin Ratio 1.1 (0.9-2) Triglycerides (0-150) mg/dl Cholesterol (0-200) mg/dl LDL Cholesterol, Calc mg/dl VLDL Cholesterol, Calc mg/dl HDL Cholesterol mg/dl Cholesterol/HDL Ratio Lipase 235 (73-393) U/L 03/21/19 03/21/19 03/21/19 Range/Units 01:37 01:37 01:37 WBC (4.8-10.8) K/uL RBC (4.7-6.1) M/uL Hgb (14.0-18.0) g/dL Hct (42-52) % MCV (80-100) fL MCH (25-34) pg MCHC (32-36) g/dL RDW Std Deviation (36.4-46.3) fL RDW Coeff of Rachel (11.5-14.5) % Plt Count (130-400) K/uL MPV (7.4-10.4) fL Immature Gran % (Auto) % Neut % (Auto) % Lymph % (Auto) % [place] % (Auto) % Eos % (Auto) % Baso % (Auto) % Immature Gran # (Auto) (0.00-0.02) K/uL Neut # (Auto) (1.4-6.5) K/uL Lymph # (Auto) (1.2-3.4) K/uL [place] # (Auto) (0.11-0.59) K/uL Eos # (Auto) (0-0.5) K/uL Baso # (Auto) (0-0.2) K/uL PT 11.9 (9.0-12.0) Seconds INR 1.2 H (0.9-1.1) Sodium 139 (136-145) mmol/L Potassium 3.6 (3.5-5.1) mmol/L Chloride 107 (98-107) mmol/L Carbon Dioxide 26 (21-32) mmol/L Anion Gap 6.0 (3-11) BUN 9 (7-18) mg/dl Creatinine 0.88 (0.6-1.4) mg/dl Est Cr Clr Drug Dosing 122.5 ml/min Est GFR ( Amer) 124.5 Est GFR (Non-Af Amer) 107.5 BUN/Creatinine Ratio 10.2 (10-20) Glucose 97 (70-99) mg/dl Estimat Average Glucose 100 mg/dl Hemoglobin A1c 5.1 (4.5-5.6) % Calcium 8.4 L (8.5-10.1) mg/dl Total Bilirubin (0.2-1) mg/dl AST (15-37) U/L ALT (12-78) U/L Alkaline Phosphatase (45-117) U/L Troponin I < 0.015 (0-0.045) ng/ml Total Protein (6.4-8.2) gm/dl Albumin (3.4-5.0) gm/dl Globulin (2.5-4.0) gm/dl Albumin/Globulin Ratio (0.9-2) Triglycerides 152 H (0-150) mg/dl Cholesterol 117 (0-200) mg/dl LDL Cholesterol, Calc 55 mg/dl VLDL Cholesterol, Calc 30 mg/dl HDL Cholesterol 32 mg/dl Cholesterol/HDL Ratio 4 Lipase (73-393) U/L 10/17/18 Range/Units 07:55 WBC (4.8-10.8) K/uL RBC (4.7-6.1) M/uL Hgb (14.0-18.0) g/dL Hct (42-52) % MCV (80-100) fL MCH (25-34) pg MCHC (32-36) g/dL RDW Std Deviation (36.4-46.3) fL RDW Coeff of Rachel (11.5-14.5) % Plt Count (130-400) K/uL MPV (7.4-10.4) fL Immature Gran % (Auto) % Neut % (Auto) % Lymph % (Auto) % [place] % (Auto) % Eos % (Auto) % Baso % (Auto) % Immature Gran # (Auto) (0.00-0.02) K/uL Neut # (Auto) (1.4-6.5) K/uL Lymph # (Auto) (1.2-3.4) K/uL [place] # (Auto) (0.11-0.59) K/uL Eos # (Auto) (0-0.5) K/uL Baso # (Auto) (0-0.2) K/uL PT (9.0-12.0) Seconds INR (0.9-1.1) Sodium (136-145) mmol/L Potassium (3.5-5.1) mmol/L Chloride (98-107) mmol/L Carbon Dioxide (21-32) mmol/L Anion Gap (3-11) BUN (7-18) mg/dl Creatinine (0.6-1.4) mg/dl Est Cr Clr Drug Dosing ml/min Est GFR ( Amer) Est GFR (Non-Af Amer) BUN/Creatinine Ratio (10-20) Glucose (70-99) mg/dl Estimat Average Glucose mg/dl Hemoglobin A1c (4.5-5.6) % Calcium (8.5-10.1) mg/dl Total Bilirubin (0.2-1) mg/dl AST (15-37) U/L ALT (12-78) U/L Alkaline Phosphatase (45-117) U/L Troponin I < 0.015 (0-0.045) ng/ml Total Protein (6.4-8.2) gm/dl Albumin (3.4-5.0) gm/dl Globulin (2.5-4.0) gm/dl Albumin/Globulin Ratio (0.9-2) Triglycerides (0-150) mg/dl Cholesterol (0-200) mg/dl LDL Cholesterol, Calc mg/dl VLDL Cholesterol, Calc mg/dl HDL Cholesterol mg/dl Cholesterol/HDL Ratio Lipase (73-393) U/L Imaging Data Radiologist's Impression: Radiology results as stated below per my review and th e radiologist's interpretation: XR chest 1V portable CLINICAL HISTORY: Chest Pain pain COMPARISON STUDY: 04/23/2017 FINDINGS: The bones soft tissues and hemidiaphragms are normal. The cardiomediastinal silhouette is normal. The lungs are clear. The pulmonary vasculature is normal. Mild stable cardiomegaly IMPRESSION: Negative chest. The above report was generated using voice recognition software. It may contain grammatical, syntax or spelling errors. Electronically signed by: Jose E Calhoun M.D. 10/16/2018 7:35 PM ECG Data Attestation: I personally reviewed and interpreted this ECG as follows: Indication: chest pain Rate (beats per minute): 66 Rhythm: normal sinus Findings: + other (Normal intervals and axis), + Q waves (Lead V3 and V4 and inferiorly) and + T-wave inversion (Lead 3) Comparison ECG Date: from (03/2017) Change: no significant change Blood Pressure Blood Pressure Findings: Normal blood pressure MDM Narrative The patient is a 38 year old male w/ PMHx IA, CAD, LAD and PDA stents, and blood clots who presents to the ED w/ CC of intermittent chest pain beginnin g this morning around 0700 and has been worsening throughout the day. Differential diagnoses includes but is not limited to acute coronary syndrome, myocardial infarction, pericarditis, pulmonary embolus, aortic dissection, pneumonia, pneumothorax, musculoskeletal, shingles, esophageal. Patient was seen and evaluated the bedside. The patient does have a history of CAD status post stent placement. The patient has been taking both aspirin and Plavix. The patient states that he has had worsening left-sided chest discomfort with arm fatigue and pain. Patient denies any trauma or overuse of the left upper extremity. Patient is right-hand dominant. The patient does not complain of any exertional symptoms. The patient was given the rest of a full dose aspirin and nitro. Upon reassessment the patient was not feeling any different. The patient was trialed on some hydroxyzine. No EKG changes troponin is not elevated. A second troponin was obtained which shows no acute change. I did speak with the on-call loom fixer who recommended observation and treatment and likely provocative testing in the morning. I did speak with the on-call hospitalist who agreed to further evaluate treat the patient. Patient was admitted for observation. Impression & Plan Atypical chest pain Discharge Plan Visit Data *Final* Discharge Date/Time: 10/17/18 00:11 Chief Complaint: Chest Pain Stated Complaint: INTERMITTEN CHEST PAIN, LEFT ARM PAIN-HX 3 STENTS ED Provider: John Morrison Discharge Problem: Atypical chest pain Patient Disposition: Admitted As Inpatient Condition: Good Discharge Instructions Interventions: ED Discharge Assessment Last Done: 10/17/18 00:11 The scribe's documentation has been prepared under my direction and personally reviewed by me in its entirety. I confirm that the note above accurately reflects all work, treatment, procedures, and medical decision making performed by me.
[2018-10-17 02:14] LABS: INR 1.2 (0.9-1.1); Prothrombin Time 11.9 Seconds (9.0-12.0)
[2018-10-17 02:23] LABS: BUN Creatinine Ratio 10.2 (10-20); Blood Urea Nitrogen 9 mg/dl (7-18); Calcium 8.4 mg/dl (8.5-10.1); Carbon Dioxide 26 mmol/L (21-32); Chloride 107 mmol/L (98-107); Creatinine Clr Calc Pharmacy 122.5 ml/min; Est GFR (African American) 124.5; Est GFR (Non-African American) 107.5; Glucose 97 mg/dl (70-99); Potassium 3.6 mmol/L (3.5-5.1); Sodium 139 mmol/L (136-145)
[2018-10-17 02:28] LABS: Chol HDL Ratio 4; Cholesterol 117 mg/dl (0-200); HDL Cholesterol 32 mg/dl; LDL Cholesterol Calculated 55 mg/dl; Triglycerides 152 mg/dl (0-150); Troponin I < 0.015 ng/ml (0-0.045); VLDL Cholesterol 30 mg/dl
[2018-10-17 06:36] LABS: Estimated Average Glucose 100 mg/dl; Hemoglobin A1C 5.1 % (4.5-5.6)
[2018-10-17] MEDS: METOPROLOL SUCC 50MG EXT REL TAB PO SCH ×2 (08:05→09:36)
[2018-10-17] MEDS ORDERED: SPIRONOLACTONE 25 MG TAB PO SCH (09:00)
[2018-10-17] MEDS ORDERED: LISINOPRIL 2.5 MG TAB PO SCH (09:00)
[2018-10-17] MEDS ORDERED: CLOPIDOGREL BISULFATE 75 MG TAB PO SCH (09:00)
[2018-10-17] MEDS ORDERED: ATORVASTATIN 40 MG TAB PO SCH (09:00)
[2018-10-17] MEDS ORDERED: PANTOprazole 40 MG TAB PO SCH (09:00)
[2018-10-17] MEDS ORDERED: ASPIRIN 81 MG ECTAB PO SCH (09:00)
--- NOTE | 2018-10-17 09:58 | Cardiology Consultation ---
Date of Consultation October 17, 2018 Assessment & Plan (1) CAD (coronary artery disease): Patient is a 38 year old male with a past medical history significant for coronary artery disease with acute anterior myocardial infarction and mid LAD stent x3 and PDA stent (12/30/16), resolved cardiomyopathy, dyslipidemia, LV mural thrombus, and GERD who presented to the ED last evening with complaints of left arm numbness/tingling and intermittent chest discomfort. The left arm numbness/tingling has been persistent since yesterday morning, and appears to worsen with certain arm positions and movements. The chest discomfort also began yesterday, and it occurred with walking and resolved almost immediately with rest. His cardiac enzymes have been negative x3, and ECGs have shown no acute ischemic changes. Given the exertional component of his chest discomfort and his prior cardiovascular history, recommend further evaluation of myocardial ischemia with a nuclear stress test. Will obtain a pharmacologic nuclear stress given patient's resting bradycardia. Also agree with further evaluation/treatment of possible carpal tunnel syndrome given patient's numbness/tingling symptoms. Recommend continuing aspirin, atorvastatin, Plavix, metoprolol, lisinopril, and spironolactone as prescribed. Thank you for allowing us to see this patient in consultation. Patient was seen and discussed with Dr. Haas, and the plan was made in collaboration with him. History of Present Illness Reason for Consultation: Chest pain, history of stents Requesting Physician: Dr. Veloz History of Present Illness Mr. Carey is a 38 year old male with a medical history significant for coronary artery disease with acute anterior myocardial infarction and mid LAD stent x3 and PDA stent (12/30/16), resolved cardiomyopathy, dyslipidemia, LV mural thrombus, and GERD who presented to the ED last evening with complaints of left arm numbness/tingling and intermittent chest discomfort. The patient's cardiovascular history began in December 2016 when he was admitted to [facility] with acute inferior and anterior myocardial infarction on el ectrocardiogram. His electrocardiogram on admission revealed inferior and anterior ST segment elevations. Emergency cardiac catheterization revealed a total mid LAD occlusion. He underwent deployment of 3 overlapping NANCY throughout the mid LAD. Right coronary angiography was then performed and revealed a subtotal proximal right PDA stenosis. This was stented with one NANCY. Echocardiogram following the procedure with mid to distal septal and apical severe hypokinesis to akinesis and inferior severe hypokinesis to akinesis. Estimated LV EF was 40-45%. There was a small inferior apical mural thrombus of the left ventricle. He was discharged on appropriate medical therapy. Repeat echo in May 2017 with apical akinesis and inferior hypokinesis. Estimated LV EF was 50-55%. No thrombus was noted at that time. In regards to his current admission, patient reports that yesterday morning while sitting at his desk at work typing, he noted numbness and tingling along the medial aspect of his left arm. He also noted a dull ache in that area. The symptoms persisted throughout the day, and he noted intermittent throbbing in his left arm, especially with different arm positions and movements. He then noted some substernal chest discomfort, also described as a dull ache. The discomfort occurred when he was walking from building to building at work. He states that he would stop at the onset of the discomfort, and it would resolve very quickly. He felt as though he needed to take deeper breaths during this time, but he does not describe a shortness of breath. He also noted intermittent "heart flutters" where his heart was skipping beats. In addition, he noted easy fatigue with exertion such as ambulating up stairs. He states that with his GA in 2017, he noted left arm numbness/tinging as well as discomfort in his chest, left shoulder, and upper back. He has had intermittent left arm numbness/tingling since that time, but it would typically resolve quickly. Due to the persistent left arm symptoms, he decided to proceed to the ED for further evaluation. He states that he remains active exercising 3-4 days a week. His exercise consists of walking for 30-60 minutes, weight lifting, and rowing. He denies any chest discomfort, other anginal type symptoms, or limiting dyspnea with these activities. The last time that he exercised was last week due to a busy work schedule. He denies orthopnea, PND, or edema. He denies syncope or presyncope. He denies abnormal bleeding such as melena, hematochezia, or hematuria. Family history: Noncontributory given his own disease. Social history: He is not , and he has no children. He works in the [employer] department at [employer]. He denies smoking or illicit drug use. He drinks about 7 alcoholic beverages per week. Allergies Allergy/AdvReac Type Severity Reaction Status Date / Time No Known Allergies Allergy NONE Unverified 10/16/18 19:03 Home Medications Home Medications Medication Instructions Recorded Confirmed Type aspirin [Aspir-81] 81 mg PO DAILY 10/16/18 10/16/18 History atorvastatin [Lipitor] 80 mg PO DAILY 10/16/18 10/16/18 History clopidogrel [Plavix] 75 mg PO DAILY 10/16/18 10/16/18 History lisinopril [Zestril] 2.5 mg PO DAILY 10/16/18 10/16/18 History metoprolol succinate [Toprol XL] 100 mg PO DAILY 10/16/18 10/16/18 History nitroglycerin [Nitrostat] 0.4 mg SUBLINGUAL UD PRN 10/16/18 10/16/18 History pantoprazole [Protonix] 40 mg PO DAILY 10/16/18 10/16/18 History spironolactone [Aldactone] 25 mg PO DAILY 10/16/18 10/16/18 History nitroglycerin [Nitrostat] 0.4 mg SUBLINGUAL ONCE PRN 30 Days 10/17/18 Rx #30 tab Patient History Medical History Acute myocardial infarction involving left anterior descending (LAD) coronary artery Acute myocardial infarction involving right coronary artery Family History Other Coronary heart disease Social History Preferred Language: Malawian Beliefs That Will Affect Care: None Current Living Situation: Significant Other Other Information That Helps Us Care for You: No Feels Safe at Home: Yes Safety Concerns: Feels Safe At This Time Smoking Status: Never smoker Hx Alcohol Use: Yes Hx Substance Use: No Physical Exam Vital Signs (Past 24 Hours): Last Vital Signs Temp 36.6 C 10/17/18 07:25 Pulse 53 L 10/17/18 07:25 Resp 16 10/17/18 07:25 BP 110/71 10/17/18 07:25 Pulse Ox 97 10/17/18 07:25 Constitutional: Alert, oriented, in no acute distress HEENT: Head is atraumatic and normocephalic. EOMs intact. Sclera anicteric. Face is symmetric. No perioral cyanosis. Mucous membranes moist. Neck: Supple, no JVD, no carotid bruits Pulmonary: Normal respiratory effort, clear to auscultation bilaterally Cardiac: Regular rate and rhythm, normal S1 and S2, no gallops, no rubs, no murmurs Extremities: No clubbing, cyanosis, or edema. Pulses 2+ and symmetric Abdomen: Normal bowel sounds, soft, non-tender, no abdominal mass palpated Skin: Normal skin color, turgor, and pigmentation, no rash, no skin lesions Neurological: Oriented to person, place, and time Results & Data Laboratory Results Laboratory Results WBC 7.01 K/uL (4.8-10.8) 10/16/18 18:42 RBC 4.72 M/uL (4.7-6.1) 10/16/18 18:42 Hgb 15.3 g/dL (14.0-18.0) 10/16/18 18:42 Hct 42.5 % (42-52) 10/16/18 18:42 MCV 90.0 fL (80-100) 10/16/18 18:42 MCH 32.4 pg (25-34) 10/16/18 18:42 MCHC 36.0 g/dL (32-36) 10/16/18 18:42 RDW Std Deviation 39.8 fL (36.4-46.3) 10/16/18 18:42 RDW Coeff of Rachel 12.1 % (11.5-14.5) 10/16/18 18:42 Plt Count 209 K/uL (130-400) 10/16/18 18:42 MPV 11.1 fL (7.4-10.4) H 10/16/18 18:42 Immature Gran % (Auto) 0.1 % 10/16/18 18:42 Neut % (Auto) 58.8 % 10/16/18 18:42 Lymph % (Auto) 28.0 % 10/16/18 18:42 [place] % (Auto) 9.0 % 10/16/18 18:42 Eos % (Auto) 3.7 % 10/16/18 18:42 Baso % (Auto) 0.4 % 10/16/18 18:42 Immature Gran # (Auto) 0.01 K/uL (0.00-0.02) 10/16/18 18:42 Neut # (Auto) 4.12 K/uL (1.4-6.5) 10/16/18 18:42 Lymph # (Auto) 1.96 K/uL (1.2-3.4) 10/16/18 18:42 [place] # (Auto) 0.63 K/uL (0.11-0.59) H 10/16/18 18:42 Eos # (Auto) 0.26 K/uL (0-0.5) 10/16/18 18:42 Baso # (Auto) 0.03 K/uL (0-0.2) 10/16/18 18:42 PT 11.9 Seconds (9.0-12.0) 10/17/18 01:37 INR 1.2 (0.9-1.1) H 10/17/18 01:37 Sodium 139 mmol/L (136-145) 10/17/18 01:37 Potassium 3.6 mmol/L (3.5-5.1) 10/17/18 01:37 Chloride 107 mmol/L (98-107) 10/17/18 01:37 Carbon Dioxide 26 mmol/L (21-32) 10/17/18 01:37 Anion Gap 6.0 (3-11) 10/17/18 01:37 BUN 9 mg/dl (7-18) 10/17/18 01:37 Creatinine 0.88 mg/dl (0.6-1.4) 10/17/18 01:37 Est Cr Clr Drug Dosing 122.5 ml/min 10/17/18 01:37 Est GFR ( Amer) 124.5 10/17/18 01:37 Est GFR (Non-Af Amer) 107.5 10/17/18 01:37 BUN/Creatinine Ratio 10.2 (10-20) 10/17/18 01:37 Glucose 97 mg/dl (70-99) 10/17/18 01:37 Estimat Average Glucose 100 mg/dl 10/17/18 01:37 Hemoglobin A1c 5.1 % (4.5-5.6) 10/17/18 01:37 Calcium 8.4 mg/dl (8.5-10.1) L 10/17/18 01:37 Total Bilirubin 0.7 mg/dl (0.2-1) 10/16/18 18:42 AST 23 U/L (15-37) 10/16/18 18:42 ALT 42 U/L (12-78) 10/16/18 18:42 Alkaline Phosphatase 49 U/L (45-117) 10/16/18 18:42 Troponin I < 0.015 ng/ml (0-0.045) 10/17/18 07:55 Total Protein 8.3 gm/dl (6.4-8.2) H 10/16/18 18:42 Albumin 4.4 gm/dl (3.4-5.0) 10/16/18 18:42 Globulin 3.9 gm/dl (2.5-4.0) 10/16/18 18:42 Albumin/Globulin Ratio 1.1 (0.9-2) 10/16/18 18:42 Triglycerides 152 mg/dl (0-150) H 10/17/18 01:37 Cholesterol 117 mg/dl (0-200) 10/17/18 01:37 LDL Cholesterol, Calc 55 mg/dl 10/17/18 01:37 VLDL Cholesterol, Calc 30 mg/dl 10/17/18 01:37 HDL Cholesterol 32 mg/dl 10/17/18 01:37 Cholesterol/HDL Ratio 4 10/17/18 01:37 Lipase 235 U/L (73-393) 10/16/18 18:42 Diagnostic Findings CXR: Negative chest. ECGs: Sinus bradycardia. Inferior and anterolateral infarct. Telemetry: Sinus sonia in 40-50s.
[2018-10-17] MEDS ORDERED: REGADENOSON 0.4 MG/5 ML SYR IV ONE (10:04)
[2018-10-17 11:50] VITALS: TEMP 98.1; O2SAT 96
--- NOTE | 2018-10-17 16:41 | Discharge Summary ---
Date of Service October 17, 2018 Admission HPI Per Admitting Provider This is a 38-year-old gentleman with significant cardiac history as below. 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 He was sitting at his desk when this would happen. It would last for several minutes then dissipate then come back. Progressively over the day the pain became more present, and was associated with midsternal chest pain which he describes as a dull ache. He also endorses palpitations, anxiety, and fatigability going up a flight of stairs which is uncharacteristic for him. He states he does get numbness and tingling down his left forearm from time to time, especially after sleeping with his left wrist flexed overnight. Cardiac history as below. He is compliant with all his follow-ups and was due to see Dr. Voss this week with follow-up of labs. PMH 1. Coronary artery disease: Acute anterior and inferior [place] December 2016 with total mid LAD occlusion and subtotal proximal PDA occlusion on cardiac catheterization. Successful intervention to the LAD (3 overlapping stents) and PDA. On statin, beta abdi and CALDERON inhibitor, Plavix 75 mg daily, aspirin 81 mg daily. 2. Ischemic cardiomyopathy: Most recent echo shows improvement in LV systolic function: Echocardiogram 06/13/17: LV systolic function low normal. EF 50-55%. Inferior wall hypokinesis. Apical akinesis. No significant valvular pathology. No thrombus. On spironolactone. 3. Dyslipidemia - on statin tx 4. GERD - on ppi PSH 1. 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 Denies tobacco, drug use, or alcohol. Admission Exam Per Admitting Provider Vitals noted as above and within normal limits with the exception of borderline hypotension. GENERAL: Awake, alert to person, place, and time, nontoxic-appearing, in no distress HENT: Normocephalic, atraumatic. . Mucus membranes appear moist. EYES: Normal conjunctiva. Sclera non-icteric. EOMI. NECK: Supple. Full range of motion. No JVD RESPIRATORY: Clear to auscultation. Normal work of breathing. CARDIAC: Regular rate, normal rhythm. Extremities warm and well perfused, 2+ radial pulses bilaterally; 2+ posterior tibialis pulses bilaterally. ABDOMEN: Soft, non-distended. No tenderness to palpation in all four quadrants. No rebound or guarding. No masses. Bowel sounds are normal. LOWER EXTREMITIES: Inspection of calves reveal equal size bilaterally. They are non-tender. No edema. No discoloration. NEURO: No focal gross focal motor deficits noted. Numbness over the median nerve and radial nerve distribution in the left upper arm. + Phalen's test. CN II-XII grossly in tact. SKIN: Rash not present. No jaundice noted. Significant lesions not present. PSYCH: Appropriate mood and affect. Cooperative. Exam as done by Analy Ramirez MD, Contact Center Associate. Principal Diagnosis Acute coronary syndrome rule out Discharge Exam Constitutional WD/WN, vitals as above Eyes PERRL, conjunctivae normal, anicteric sclerae ENMT external ear and nose normal, oropharynx normal Neck trachea midline, no thyromegaly Respiratory normal respiratory effort, lungs clear to auscultation Cardiovascular RRR, no murmur, no edema Gastrointestinal (Abdomen) normal bowel sounds, soft, nontender, no hepatosplenomegaly Musculoskeletal tenderness left upper ext, medial aspect of mid arm reproducible left upper extremity numbness with spurlings test Skin no rashes, warm and dry Psychiatric A+Ox3, euthymic affect Discharge Data Allergies Allergy/AdvReac Type Severity Reaction Status Date / Time No Known Allergies Allergy NONE Unverified 10/16/18 19:03 Consultations 10/16/18 21:29 ED Decision to Admit Stat 10/17/18 01:01 Consult Cardiology Routine Hospital Course (1) Atypical chest pain: 38-year-old male with significant recent cardiac history status post stents, who presents with intermittent chest pain progressively worsening over the day associated with left arm numbness. Chest pain, intermittent anginal symptoms, relieved by nitro Evaluated by cardiology, recommend nuclear stress test considering patient's significant history of coronary artery disease Nuclear stress test did not show ischemic changes. It did show reduced EF when compared to previously ECHO. Considering he did not have concerning CHF sx, we determined difference maybe secondary to variations in testing modalities. We would recommend close outpatient follow up with tenant coordinator. Would recommend repeat ECHO. Continue outpatient medical management including; aspirin, atorvastatin, clopidogrel, lisinopril, metoprolol, Aldactone Left arm pain, possible cervical radiculopathy Patient had increased left arm symptoms with Spurling's test Recommend outpatient workup (2) Carpal tunnel syndrome of left wrist: (3) GERD (gastroesophageal reflux disease): (4) CAD (coronary artery disease): Total Time Total Time Spent Total Time Spent (In Minutes): less than 30 minutes Total Time Includes: Examination of the Patient, Discharge Planning, Medication Reconciliation and Communication With Other Providers Discharge Plan Discharge Items Patient Disposition: Home - Self-Care Reason For Visit: CHEST PAIN Discharge Diagnosis: left arm pain, angina Condition: Good Discharge Goals: Decrease discomfort and Diagnostic testing Activity: Resume your previous activity Non-emergency contact: Primary Care Provider and Vice President Diversity Call non-emergency contact if: you have any medication questions Follow-up/Referrals: Joseph Turner [Primary Care Provider] - Diet: Regular Addtl Provider Instructions: We are discharging you home today after being evaluated for chest pain. The test that we did in the hospital did not show evidence of new heart blockages. We did the following test; EKG a test looking at the electrical activity of the heart, troponin, a blood test that indicates damage to the heart and nuclear stress test which would tell us if there was decreased blood flow to the heart. All of these test were negative. Your chest pain is likely secondary to your baseline angina that you have had since your [place]. We recommend continuing to take nitro when needed. I am providing an extra script. In addition, the arm pain that you are having is more likely secondary to compression of the nerves exiting your spine. I was able to reproduce these symptoms with my physical exam. You will need to follow up with your primary care doctor regarding these symptoms. This can be secondary to a previous neck injury, muscle tension or arthritis. As we discussed, your stress test did show differences in the function of the heart when compared to previous ultrasound. This maybe secondary to variation in the actual testing method and not nescissarily because you are actaully having new changes in your hearts function. There is no concerning symptoms or finding on imaging such swelling in your legs or fluid on your lungs to suggest concerning changes. Therefore, we think that you chould continue your home medical regimen and follow up with Dr Voss and Dr. Turner regarding your hospitalizaiton. They want to do repeat test such as a echocardiogram. We will arrange these appointments. Prescriptions: New nitroglycerin [Nitrostat] 0.4 mg tablet, sublingual 0.4 mg sublingual ONCE PRN (Reason: chest pain) 30 Days Qty: 30 RF: 3 Continued aspirin [Aspir-81] 81 mg Tablet,Delayed Release (Dr/Ec) 81 mg PO DAILY RF: 0 atorvastatin [Lipitor] 80 mg tablet 80 mg PO DAILY RF: 0 metoprolol succinate [Toprol XL] 100 mg tablet extended release 24 hr 100 mg PO DAILY RF: 0 clopidogrel [Plavix] 75 mg tablet 75 mg PO DAILY RF: 0 spironolactone [Aldactone] 25 mg tablet 25 mg PO DAILY RF: 0 pantoprazole [Protonix] 40 mg tablet,delayed release (DR/EC) 40 mg PO DAILY RF: 0 nitroglycerin [Nitrostat] 0.4 mg Tablet, Sublingual 0.4 mg sublingual UD PRN (Reason: Chest Pain) RF: 0 lisinopril [Zestril] 2.5 mg tablet 2.5 mg PO DAILY RF: 0 Stand-Alone Forms: Call Back Authorization, [facility] Discharge Orders: Discharge Order (Routine); Ordered 10/17/18 Ordered By: Samuel Ramirez Admission Data Admit Date/Time: 10/16/18 23:17 Attending Provider: Zhang Kang Admit Provider: Analy Ramirez Primary Care Provider: Joseph Turner Other Providers: Aramis Mcnair ; Lopez Snow Service: Telemetry Medical Other Interventions: Discharge Summary Assessment (RN) Last Done: 10/17/18 17:42 DC Date/Time DO NOT enter until pt leaves facility: 10/17/18 18:10 Supervising Physician Co-Signing Physician Notes I personally examined the patient and verified all scales points of history and exam, discussed case, and agree with decision making with Dr Ramirez feeling ok arm pain was reproducible by dr ramirez doing foraminal compression stress test negative for new ischemia, did show EF lower than prior vitals noted nad breathing unlabored no pallor or icterus left arm pain - appearing cervical radicular - outpt f/u cad - no reversible ischemia. chronic systolic chf - no decompensation, EF looks lower than previous echo but different testing. since no decompensation, will have close cardiology follow up for ?further dx (?repeat echo) and/or med changes if worseningly reduced EF is real (?increase ACEi and aldactone vs trial of entresto) stable for home all questions answered by dr ramirez and myself to the best of our ability Resident Activity Tracking Resident Involvement: Resident Care Provided Care Provided: Adult Hospital Medicine
[2018-10-17 17:43] VITALS: BP 138/94; PULSE 54
--- NOTE | 2018-10-17 19:45 | Myocardial Perfusion Study ---
Date of Service October 17, 2018 Myocardial Perfusion Study [facility] Myocardial Perfusion Study Report Procedure: 1. Myocardial perfusion study performed in multiple views/images 2. Lexiscan pharmacologic stress ECG Indications: 1. Chest pain 2. CAD Ordering physician: Dr. Haas Procedural details: For the stress portion of the study, Lexiscan 0.4 mg was intravenously administered followed by a saline flush. This was followed by 33.8 mCi of technetium 99m Cardiolite, injected at 2:50 p.m. on 10/17/2018. 30 minutes following the injection, imaging of the heart was performed in multiple projections. For the rest portion of the study, 11.2 mCi technetium 99m Cardiolite was injected intravenously at 1:20 p.m. on 10/17/2018. 1 hour following the injection, imaging of the heart was performed in the same projections. Lexiscan stress ECG: Resting ECG demonstrated: Sinus rhythm 66 bpm. Inferior infarct. Anterior infarct. Maximum heart rate: 118 bpm Maximal, age-predicted heart rate: 65 % Resting blood pressure: 98/68 mmHg Maximum blood pressure: 109/[address] changes: None Arrhythmia: None Symptoms: Palpitations Findings: Rotating raw imaging demonstrated no significant lung uptake. There is no significant motion artifact. Heart size appeared enlarged. Myocardial perfusion demonstrated a large area of severely reduced uptake involving the base to apical inferior wall and base to apical inferoseptum, which were fixed in post stress and rest imaging without significant reversibility. There was a large area of severely reduced uptake involving the mid to apical anteroseptum, mid to apical septum, and apex, which was once again fixed in post stress and rest imaging, with minimal reversibility suggesting meghann-infarct ischemia. There is a small area of severely reduced uptake involving the distal to apical inferolateral wall, which is fixed in post stress and rest imaging. Distal LV wall segments appear to be divergent, suggesting apical aneurysm. Ejection fraction: 29 % Wall motion: Akinesis of the base to apical inferior, base to apical inferoseptum, mid to apical anteroseptum, mid to apical septum, and distal apical inferolateral wall segments. Otherwise, global hypokinesis. No significant transient ischemic dilation. Impression: 1. Abnormal myocardial perfusion study suggesting large LAD and RCA infarcts, with meghann-infarct ischemia involving LAD territory. 2. Severely reduced LV systolic function. EF 29%. 3. LAD and RCA territory akinesis with otherwise global hypokinesis. 4. Study suggests aneurysmal apex. 5. Nondiagnostic Lexiscan ECG.
== END 2018-10-17 18:10 | disposition home or self-care (01) ==
LOC: ED 18:12 → 2S 18:12 → SUATTDRO 23:17 → 2S 10-17 00:11
DX: M79.602 Pain in left arm; Z79.899 Other long term (current) drug therapy; Z79.02 Long term (current) use of antithrombotics/antiplatelets; K21.9 Gastro-esophageal reflux disease without esophagitis; G56.02 Carpal tunnel syndrome, left upper limb; Z79.82 Long term (current) use of aspirin; Z95.5 Presence of coronary angioplasty implant and graft; I25.5 Ischemic cardiomyopathy; E78.5 Hyperlipidemia, unspecified; I25.119 Atherosclerotic heart disease of native coronary artery with unspecified angina pectoris

== ENCOUNTER 2019-09-26 14:03 | Observation (INO) ==
--- NOTE | 2019-09-26 15:21 | Emergency Department Note ---
History of Present Illness General Chief complaint: Vertigo Stated complaint: VERTIGO Time Seen by Provider: 09/26/19 14:59 History of Present Illness This is a 39-year-old male that presents to the emergency department via private vehicle with complaints of "vertigo, burning in chest". The patient states that he has a history of 3 cardiac stent placements as well as history of low EF. He states that he has been doing well, but states that this past Sunday he notes that he felt as if he was off balance as if he was on a boat. He notes that he was able to walk okay/fine but still felt off balance. He felt "wobbly". He denies any dizziness, syncope or headache. He also has associated fatigue. He also feels short of breath. No definite chest pain but he does state he has some discomfort in the upper abdomen that he describes as a pressure. He denies any weakness, viral URI symptoms, vision change, paresthesias. No recent head trauma. He notes that this does not feel similar to his IL 2 years ago. He follows with Dr. Voss for his heart conditions. He also feels as though he is burping a lot more and he also notes that he also has intermittent palpitations in the chest and when they seem to revert back to normal he develops a tingling sensation in the chest. Home Medications Home Medications Medication Instructions Recorded Confirmed Type aspirin [Aspir-81] 81 mg PO DAILY 10/16/18 09/26/19 History clopidogrel [Plavix] 75 mg PO DAILY 10/16/18 09/26/19 History nitroglycerin [Nitrostat] 0.4 mg SUBLINGUAL UD PRN 10/16/18 09/26/19 History alprazolam 0.25 mg tablet 0.25 mg PO DAILY PRN tab 04/07/19 09/26/19 History atorvastatin 80 mg tablet 80 mg PO DAILY #90 tab 06/30/19 09/26/19 Rx lisinopril 2.5 mg tablet 2.5 mg PO DAILY #90 tab 06/30/19 09/26/19 Rx pantoprazole 40 mg tablet,delayed 40 mg PO DAILY #90 tab 06/30/19 09/26/19 Rx release spironolactone 25 mg tablet 25 mg PO DAILY #90 tab 06/30/19 09/26/19 Rx metoprolol succinate 100 mg 100 mg PO DAILY #90 tab 08/06/19 09/26/19 Rx tablet,extended release 24 hr Allergies Allergy/AdvReac Type Severity Reaction Status Date / Time No Known Drug Allergies Allergy Verified 09/26/19 14:53 Past Med/Surg History Medical History (Updated 09/27/19 @ 01:38 by Kayode Robertson PA-C) Acute myocardial infarction involving left anterior descending (LAD) coronary artery Acute myocardial infarction involving right coronary artery Dyslipidemia Ischemic cardiomyopathy Palpitations (Acute) Surgical History Hx of heart artery stent Family History Other Coronary heart disease Social History Preferred Language: Burmese Communication Ability: Effective Coconut Candy Maker Required: No Beliefs That Will Affect Care: None Current Living Situation: Significant Other Other Information That Helps Us Care for You: No Feels Safe at Home: Yes Safety Concerns: Feels Safe At This Time Smoking Status: Never smoker Do You Dip or Chew Tobacco: No ; Hx Alcohol Use: Yes Alcohol type: beer, wine and hard liquor Hx Substance Use: No Review of Systems A total of 10 systems reviewed and were otherwise negative Physical Exam Vital Signs Vital Signs - 24 hr 09/26/19 14:07 09/26/19 15:00 09/26/19 15:26 Temperature 36.7 C Temperature Source Oral Pulse Rate 87 59 L 72 Pulse Rate from SpO2 Sensor 60 69 Respiratory Rate 20 14 19 Respiratory Effort / Characteristics Non-Labored Spontaneous Respiratory Depth Normal Respiratory Pattern Regular Blood Pressure 134/85 111/69 Blood Pressure Mean 101 74 Pulse Oximetry 96 96 94 Oxygen Delivery Method Room Air Sepsis Recent Fever Within 48 Hours No Sepsis Action Taken by Nursing No Action Required 09/26/19 15:30 09/26/19 16:00 09/26/19 16:30 Temperature Temperature Source Pulse Rate 68 57 L 58 L Pulse Rate from SpO2 Sensor 70 57 L 58 L Respiratory Rate 18 21 19 Respiratory Effort / Characteristics Respiratory Depth Respiratory Pattern Blood Pressure 127/94 125/77 116/79 Blood Pressure Mean 109 83 87 Pulse Oximetry 96 95 96 Oxygen Delivery Method Sepsis Recent Fever Within 48 Hours Sepsis Action Taken by Nursing 09/26/19 17:00 09/26/19 17:02 Temperature Temperature Source Pulse Rate 60 61 Pulse Rate from SpO2 Sensor 60 61 Respiratory Rate 18 19 Respiratory Effort / Characteristics Respiratory Depth Respiratory Pattern Blood Pressure 122/84 Blood Pressure Mean 95 Pulse Oximetry 96 95 Oxygen Delivery Method Sepsis Recent Fever Within 48 Hours Sepsis Action Taken by Nursing VITAL SIGNS - Vital signs and nursing notes were reviewed. Stable and afebrile. GENERAL -39-year-old male appearing his stated age who is in no acute distress. Communicates well with provider and answers questions appropriately. SKIN - Without rashes. No meningeal or petechial rash. HEAD - NC/AT. EYES - PERRL with EOMI bilaterally. Sclera anicteric. EARS - No deformities of external structures noted on gross examination bi laterally. Mild scarring to the TMs. There is yellowish fluid behind the TMs without any erythema. No perforation. NOSE - Midline and without cyanosis. No epistaxis or purulent drainage noted. MOUTH/OROPHARYNX - Without perioral cyanosis. NECK - Neck with FROM. Supple to palpation. No lymphadenopathy noted. No nuchal rigidity. LUNGS - Chest wall symmetric without accessory muscle use, intercostals retractions, or central cyanosis. Normal vesicular breath sounds CTA B/L. No wheezes, rales, or rhonchi appreciated. CARDIAC - RRR with S1/S2. No murmur, rubs, or gallops appreciated. ABDOMEN - Abdominal contour normal without pulsations or visible masses. BS normoactive all four quadrants. No tenderness, palpable masses, hepatosplenomegaly, or ascites noted. EXTREMITIES - No clubbing or peripheral cyanosis. No pretibial edema present. +5/5 strength noted in UE/LE bilaterally. NEUROLOGIC - Cranial nerves II through XII grossly intact. Sensory intact to light touch throughout. PSYCH - A&Ox3 and cooperates fully with examiner. Pt is very pleasant and interacts well with examiner. Course Administered Medications Enoxaparin Sodium (Lovenox) 40 mg SQ HS ADALBERTO Stop: 10/26/19 20:59 Last Admin: 09/26/19 21:26 Dose: 40 mg Documented by: [id number] Loratadine (Claritin) 10 mg PO QAM ADALBERTO Stop: 10/26/19 18:15 Last Admin: 09/26/19 19:55 Dose: 10 mg Documented by: [id number] Meclizine HCl (Antivert) 25 mg PO TID ADALBERTO Stop: 10/26/19 20:59 Last Admin: 09/26/19 21:26 Dose: 25 mg Documented by: [id number] Discontinued Medications Al Hydrox/Mg Hydrox/Simethicone () 1 dose PO ONE ONE Stop: 09/26/19 15:39 Last Admin: 09/26/19 16:09 Dose: 1 dose Documented by: [id number] Aspirin (Ecotrin Ectab) 81 mg PO NOW STA Stop: 09/26/19 18:32 Last Admin: 09/26/19 19:56 Dose: 81 mg Documented by: [id number] Medical Decision Making Laboratory Data Result diagrams: 09/26/19 14:50 09/26/19 14:50 Lab Results 09/26/19 09/26/19 09/26/19 Range/Units 14:50 14:50 14:50 WBC 5.49 (4.8-10.8) K/uL RBC 4.99 (4.7-6.1) M/uL Hgb 15.8 (14.0-18.0) g/dL Hct 45.4 (42-52) % MCV 91.0 (80-100) fL MCH 31.7 (25-34) pg MCHC 34.8 (32-36) g/dL RDW Std Deviation 39.7 (36.4-46.3) fL RDW Coeff of Rachel 11.9 (11.5-14.5) % Plt Count 205 (130-400) K/uL MPV 11.3 H (7.4-10.4) fL Immature Gran % (Auto) 0.2 % Neut % (Auto) 65.9 % Lymph % (Auto) 21.5 % [place] % (Auto) 8.7 % Eos % (Auto) 3.3 % Baso % (Auto) 0.4 % Immature Gran # (Auto) 0.01 (0.00-0.02) K/uL Neut # (Auto) 3.62 (1.4-6.5) K/uL Lymph # (Auto) 1.18 L (1.2-3.4) K/uL [place] # (Auto) 0.48 (0.11-0.59) K/uL Eos # (Auto) 0.18 (0-0.5) K/uL Baso # (Auto) 0.02 (0-0.2) K/uL PT 11.1 (9.0-12.0) Seconds INR 1.1 (0.9-1.1) APTT 24.5 (21.0-31.0) Seconds PTT Ratio 0.9 Sodium 139 (136-145) mmol/L Potassium 3.8 (3.5-5.1) mmol/L Chloride 107 (98-107) mmol/L Carbon Dioxide 25 (21-32) mmol/L Anion Gap 7.0 (3-11) BUN 11 (7-18) mg/dl Creatinine 0.98 (0.6-1.4) mg/dl Est Cr Clr Drug Dosing 108.9 ml/min Est GFR ( Amer) 110.5 Est GFR (Non-Af Amer) 95.4 BUN/Creatinine Ratio 11.1 (10-20) Glucose 97 (70-99) mg/dl Calcium 9.6 (8.5-10.1) mg/dl Magnesium 2.4 (1.8-2.4) mg/dl Total Bilirubin 0.9 (0.2-1) mg/dl AST 24 (15-37) U/L ALT 44 (12-78) U/L Alkaline Phosphatase 46 (45-117) U/L Troponin I < 0.015 (0-0.045) ng/ml Total Protein 8.5 H (6.4-8.2) gm/dl Albumin 4.5 (3.4-5.0) gm/dl Globulin 4.0 (2.5-4.0) gm/dl Albumin/Globulin Ratio 1.1 (0.9-2) TSH 1.330 (0.300-4.500) uIu/ml Urine Color Urine Appearance (Clear) Urine pH (4.5-7.5) Ur Specific Holt (1.000-1.030) Urine Protein (Negative) Urine Glucose (UA) (Negative) Urine Ketones (Negative) Urine Blood (Negative) Urine Nitrite (Negative) Urine Bilirubin (Negative) Urine Urobilinogen (Negative) Ur Leukocyte Esterase (Negative) 09/26/19 Range/Units 14:50 WBC (4.8-10.8) K/uL RBC (4.7-6.1) M/uL Hgb (14.0-18.0) g/dL Hct (42-52) % MCV (80-100) fL MCH (25-34) pg MCHC (32-36) g/dL RDW Std Deviation (36.4-46.3) fL RDW Coeff of Rachel (11.5-14.5) % Plt Count (130-400) K/uL MPV (7.4-10.4) fL Immature Gran % (Auto) % Neut % (Auto) % Lymph % (Auto) % [place] % (Auto) % Eos % (Auto) % Baso % (Auto) % Immature Gran # (Auto) (0.00-0.02) K/uL Neut # (Auto) (1.4-6.5) K/uL Lymph # (Auto) (1.2-3.4) K/uL [place] # (Auto) (0.11-0.59) K/uL Eos # (Auto) (0-0.5) K/uL Baso # (Auto) (0-0.2) K/uL PT (9.0-12.0) Seconds INR (0.9-1.1) APTT (21.0-31.0) Seconds PTT Ratio Sodium (136-145) mmol/L Potassium (3.5-5.1) mmol/L Chloride (98-107) mmol/L Carbon Dioxide (21-32) mmol/L Anion Gap (3-11) BUN (7-18) mg/dl Creatinine (0.6-1.4) mg/dl Est Cr Clr Drug Dosing ml/min Est GFR ( Amer) Est GFR (Non-Af Amer) BUN/Creatinine Ratio (10-20) Glucose (70-99) mg/dl Calcium (8.5-10.1) mg/dl Magnesium (1.8-2.4) mg/dl Total Bilirubin (0.2-1) mg/dl AST (15-37) U/L ALT (12-78) U/L Alkaline Phosphatase (45-117) U/L Troponin I (0-0.045) ng/ml Total Protein (6.4-8.2) gm/dl Albumin (3.4-5.0) gm/dl Globulin (2.5-4.0) gm/dl Albumin/Globulin Ratio (0.9-2) TSH (0.300-4.500) uIu/ml Urine Color Yellow Urine Appearance Clear (Clear) Urine pH 6.5 (4.5-7.5) Ur Specific Holt 1.007 (1.000-1.030) Urine Protein Negative (Negative) Urine Glucose (UA) Negative (Negative) Urine Ketones Negative (Negative) Urine Blood Negative (Negative) Urine Nitrite Negative (Negative) Urine Bilirubin Negative (Negative) Urine Urobilinogen Negative (Negative) Ur Leukocyte Esterase Negative (Negative) Imaging Data Radiologist's Impression: XR chest 1V portable CLINICAL HISTORY: dizziness COMPARISON STUDY: Chest radiograph October 16, 2018. FINDINGS: Lung volumes are normal. Lungs are clear. There is no pneumothorax or pleural effusion. Cardiac size is stable. Mediastinal contours are normal. There is no evidence for pulmonary edema. IMPRESSION: No acute cardiopulmonary findings. ACT 112: Negative or not required by law. Electronically signed by: Tunde Marroquin M.D. 09/26/2019 3:58 PM MDM Narrative Patient was seen and evaluated as above in room C03. Review was performed of nursing notes and vital signs. After obtaining a thorough history and physical examination the above work up was performed. He presents to us today with several symptoms. First, he notes that he has a sensation as though he is on a boat and is off balance but is able to walk okay. He has no focal deficit on exam. He also has what he describes as a pressure in the superiormost portion of the abdomen centrally. He also has been experiencing intermittent palpitations and when they seem to go away he then has tingling in the chest. H seth has a significant heart history. Patient's last EF per review in the system was 29% on 10/17/2018. Chest x-ray was obtained with results as above. This was negative. An EKG was also obtained and was compared to EKG that was performed October 17, 2018. The EKG from today revealed sinus bradycardia, rate of 59 bpm. There is evidence of previous infarct. This does not appear to be new. No evidence of ST elevation. QTc 396. He does take aspirin and Plavix. GI cocktail was provided initially with some minimal relief. No leukocytosis or anemia. No emergent metabolic disturbance. Troponin is negative. Urinalysis is negative. Influenza testing is negative. Additionally, with the patient's history it is felt that he would benefit from further evaluation and management in the inpatient setting noting the cardiac history. Patient was amenable to staying. Please refer to further documentation regarding his stay. Case was discussed with the attending physician. GCS: 15 In the evaluation and treatment of this patient, the following differential diagnoses were considered: IL, ASC, Dysrhythmia, Angina, Mediastinitis, GERD, Esophagitis, PE, Pneumonia, Bronchitis, Costochondritis, Rib Fracture, Zoster. Impression & Plan Palpitations, Vertigo, Abdominal pressure Discharge Plan Visit Data *Final* Discharge Date/Time: 09/26/19 17:45 Chief Complaint: Vertigo Stated Complaint: VERTIGO ED Provider: Keisha Mcarthur ED Midlevel Provider: Kayode Robertson Discharge Problem: Palpitations, Vertigo, Abdominal pressure Patient Disposition: Admitted As Inpatient Condition: Good Discharge Instructions Interventions: ED Discharge Assessment Last Done: 09/26/19 17:45
[2019-09-26 15:35] LABS: Basophils # (auto) 0.02 K/uL (0-0.2); Basophils % (auto) 0.4 %; Eosinophils # (auto) 0.18 K/uL (0-0.5); Eosinophils % (auto) 3.3 %; Hematocrit (blood only) 45.4 % (42-52); Hemoglobin 15.8 g/dL (14.0-18.0); Immature Granulocytes # (auto) 0.01 K/uL (0.00-0.02); Immature Granulocytes % (auto) 0.2 %; Lymphocytes # (auto) 1.18 K/uL (1.2-3.4); Lymphocytes % (auto) 21.5 %; Mean Corpuscular Hemoglobin 31.7 pg (25-34); Mean Corpuscular Hgb Conc 34.8 g/dL (32-36); Mean Platelet Volume 11.3 fL (7.4-10.4); Monocytes # (auto) 0.48 K/uL (0.11-0.59); Monocytes % (auto) 8.7 %; Neutrophils # (auto) 3.62 K/uL (1.4-6.5); Neutrophils % (auto) 65.9 %; Platelet Count 205 K/uL (130-400); RDW Coefficient of Variation 11.9 % (11.5-14.5); RDW Standard Deviation 39.7 fL (36.4-46.3); Red Blood Count 4.99 M/uL (4.7-6.1); White Blood Count 5.49 K/uL (4.8-10.8)
[2019-09-26] MEDS ORDERED: GI COCKTAIL ED USE PO ONE (15:38)
[2019-09-26 15:42] LABS: Alanine Aminotransferase 44 U/L (12-78); Albumin Level 4.5 gm/dl (3.4-5.0); Aspartate Aminotransferase 24 U/L (15-37); BUN Creatinine Ratio 11.1 (10-20); Blood Urea Nitrogen 11 mg/dl (7-18); Calcium 9.6 mg/dl (8.5-10.1); Carbon Dioxide 25 mmol/L (21-32); Chloride 107 mmol/L (98-107); Creatinine Clr Calc Pharmacy 108.9 ml/min; Est GFR (African American) 110.5; Est GFR (Non-African American) 95.4; Glucose 97 mg/dl (70-99); Magnesium 2.4 mg/dl (1.8-2.4); Potassium 3.8 mmol/L (3.5-5.1); Sodium 139 mmol/L (136-145)
[2019-09-26 15:47] LABS: INR 1.1 (0.9-1.1); Partial Thromboplastin Ratio 0.9; Partial Thromboplastin Time 24.5 Seconds (21.0-31.0); Prothrombin Time 11.1 Seconds (9.0-12.0)
[2019-09-26 15:48] LABS: Appearance Urine Clear (Clear); Bilirubin Urine Negative (Negative); Blood Urine Negative (Negative); Color Urine Yellow; Glucose Urine UA Negative (Negative); Ketones Urine Negative (Negative); Leukocyte Esterase Urine Negative (Negative); Nitrite Urine Negative (Negative); Protein Urine Negative (Negative); Specific Gravity Urine 1.007 (1.000-1.030); Urobilinogen Urine Negative (Negative); pH Urine 6.5 (4.5-7.5)
[2019-09-26 15:53] LABS: Albumin Globulin Ratio 1.1 (0.9-2); Alkaline Phosphatase 46 U/L (45-117); Bilirubin,Total 0.9 mg/dl (0.2-1); Total Protein 8.5 gm/dl (6.4-8.2); Troponin I < 0.015 ng/ml (0-0.045)
--- NOTE | 2019-09-26 15:59 | XRay Report ---
XR chest 1V portable CLINICAL HISTORY: dizziness COMPARISON STUDY: Chest radiograph October 16, 2018. FINDINGS: Lung volumes are normal. Lungs are clear. There is no pneumothorax or pleural effusion. Car diac size is stable. Mediastinal contours are normal. There is no evidence for pulmonary edema. IMPRESSION: No acute cardiopulmonary findings. ACT 112: Negative or not required by law. Electronically signed by: Tunde Marroquin M.D. 09/26/2019 3:58 PM
--- NOTE | 2019-09-26 17:28 | History & Physical Report ---
Date of Service September 26, 2019 Assessment & Plan (1) Atypical chest pain: Admit to PCU on telemetry for observation. Vital signs every 4 hours. Troponin x3 with EKG TTE pending Given aspirin 81 in the ER. Continue home dose of aspirin 81 and Plavix 75 mg daily. Consider consulting cardiology if TTE worsening or elevated troponin. DVT prophylaxis Lovenox 40 mg subacute daily. Full code Present on Admission?: Yes (2) Vertigo: Possibly benign positional vertigo versus vestibulitis. We will start physical therapy. Meclizine 25 mg 3 times daily. Continue monitoring Present on Admission?: Yes (3) Ischemic cardiomyopathy: As discussed above. Continue lisinopril 2.5 mg p.o. daily, metoprolol succinate 100 mg p.o. daily, nitroglycerin 0.4 mg sublingual daily as needed, Spironolactone 25 mg p.o. daily, aspirin 81 mg p.o. daily, clopidogrel 75 mg p.o. daily. Present on Admission?: Yes (4) Dyslipidemia: Fasting lipid panel pending. Continue atorvastatin 80 mg p.o. daily Present on Admission?: Yes (5) CAD (coronary artery disease): As discussed above. Present on Admission?: Yes (6) GERD (gastroesophageal reflux disease): Stable, continue pantoprazole 40 mg p.o. daily. Present on Admission?: Yes History of Present Illness Chief Complaint: Vertigo Primary Care Provider: Joseph Turner The patient is a 39 years old male with past medical history of of coronary artery disease with 3 stents placed in 2019 and ejection fraction of 29%, ischemic cardiomyopathy, GERD, dyslipidemia, who presents to the emergency room with a complaint of vertigo since this morning. Patient reports feeling well otherwise. Patient denies any sick contact but he also said that he could be exposed to people who are sick. Patient also reports some chest tightness .First troponin was negative. Patient describes his condition as a room spinning around him. Patient denies fever, chills, chest pain, shortness of breath, abdominal pain, frequency, urgency, headache, runny nose, cough. Labs are reviewed: Sodium 139, potassium 3.8, chloride 107, carbon dioxide 25, anion gap 7, BUN 11, creatinine 0.98, GFR 95.4, glucose 97, calcium 9.6, magnesium 2.4, total bilirubin 0.9, AST 24, ALT 44, alkaline phosphatase 46, troponin 0.015, total protein 8.5, albumin 4.5, globulin 4, TSH 1.33. Urine all normal. Influenza A and B pending. Chest x-ray is shows l lung volumes are normal, lungs are clear, there is no pneumothorax or pleural effusion, cardiac size is stable. Mediastinal contours are normal. There is no evidence of pulmonary edema. Impression no acute cardiopulmonary finding. Patient reports that he had echocardiogram approximately [address] Voss's office, but since it is Sunday after hours we will not be able to obtain that echocardiogram. Patient had Lexiscan stress ECG in September 2018 which showed a low ejection fraction of 29% with akinesis of the base of the apical inferior, basal to apical inferoseptum, mid to apical anteroseptum, mid to apical septum and distal apical inferolateral wall segments. Otherwise global hypokinesis. Abnormal kamron cardial perfusion study suggesting large LAD and RCA infarcts with meghann-infarct ischemia involving LAD territory with severely reduced LV systolic function. Decision was made to admit patient to PCU on telemetry for further evaluation of chest tightness, and vestibulitis versus benign positional vertigo. Allergies Allergy/AdvReac Type Severity Reaction Status Date / Time No Known Drug Allergies Allergy Verified 09/26/19 14:53 Home Medications Home Medications Medication Instructions Recorded Confirmed Type aspirin [Aspir-81] 81 mg PO DAILY 10/16/18 09/26/19 History clopidogrel [Plavix] 75 mg PO DAILY 10/16/18 09/26/19 History nitroglycerin [Nitrostat] 0.4 mg SUBLINGUAL UD PRN 10/16/18 09/26/19 History alprazolam 0.25 mg tablet 0.25 mg PO DAILY PRN tab 04/07/19 09/26/19 History atorvastatin 80 mg tablet 80 mg PO DAILY #90 tab 06/30/19 09/26/19 Rx lisinopril 2.5 mg tablet 2.5 mg PO DAILY #90 tab 06/30/19 09/26/19 Rx pantoprazole 40 mg tablet,delayed 40 mg PO DAILY #90 tab 06/30/19 09/26/19 Rx release spironolactone 25 mg tablet 25 mg PO DAILY #90 tab 06/30/19 09/26/19 Rx metoprolol succinate 100 mg 100 mg PO DAILY #90 tab 08/06/19 09/26/19 Rx tablet,extended release 24 hr Past Med/Surg History Medical History Acute myocardial infarction involving left anterior descending (LAD) coronary artery Acute myocardial infarction involving right coronary artery Dyslipidemia Ischemic cardiomyopathy Palpitations Family History Other Coronary heart disease Social History Preferred Language: Maldivian Communication Ability: Effective Cement Paver Required: No Beliefs That Will Affect Care: None Current Living Situation: Significant Other Other Information That Helps Us Care for You: No Feels Safe at Home: Yes Safety Concerns: Feels Safe At This Time Smoking Status: Never smoker Do You Dip or Chew Tobacco: No ; Hx Alcohol Use: Yes Alcohol type: beer, wine and hard liquor Hx Substance Use: No Review of Systems Review of Systems: All systems reviewed & are unremarkable except as noted in HPI & below Physical Exam Constitutional: WD/WN, vitals as above well developed Eyes: PERRL ENMT: Bulging tympanic membranes bilaterally with seroma. Neck: trachea midline, no thyromegaly Respiratory: normal respiratory effort, lungs clear to auscultation Cardiovascular: RRR, no murmur, no edema Gastrointestinal (Abdomen): normal bowel sounds, soft, nontender, no hepatosplenomegaly Musculoskeletal: no cyanosis or clubbing, extremities motor strength 5/5 Skin: no rashes, warm and dry Neurologic: patellar DTR's 2+ bilat, sensation intact Psychiatric: A+Ox3, euthymic affect Lymphatic: no cervical or axillary lymphadenopathy Results & Data Vital Signs (Past 12 Hours) Vital Signs Temp Pulse Resp BP Pulse Ox 09/26/19 17:02 61 19 122/84 95 09/26/19 17:00 60 18 96 09/26/19 16:30 58 L 19 116/79 96 09/26/19 16:00 57 L 21 125/77 95 09/26/19 15:30 68 18 127/94 96 09/26/19 15:26 72 19 94 09/26/19 15:00 59 L 14 111/69 96 09/26/19 14:07 36.7 C 87 20 134/85 96 Code Status & VTE Plan Code Status Full code VTE Prophylaxis Plan VTE Prophylaxis will be ordered: Yes PG Care Time/CCT Total # of Minutes Spent Total Time Spent with Patient: Total time spent is greater than 50% in coordination of care (as documented) at patient's floor/unit and/or counseling patient: Coding Level of Care Code 75725 Initial Inpt Care Lvl 3 Diagnoses Atypical chest pain R07.89 Vertigo R42 Ischemic cardiomyopathy I25.5 Dyslipidemia E78.5 CAD (coronary artery disease) I25.10 GERD (gastroesophageal reflux disease) K21.9
[2019-09-26] MEDS ORDERED: ALUMINUM/MAGNESIUM SUSP 30 ML UDC PO PRN (18:16)
[2019-09-26] MEDS ORDERED: POLYETHYLENE (MIRALAX) 17 GM PACK PO PRN (18:16)
[2019-09-26] MEDS ORDERED: ALPRAZolam 0.25 MG TABLET PO PRN (18:16)
[2019-09-26] MEDS ORDERED: ONDANSETRON INJ 2 MG/ML 2 ML VIAL IV PRN (18:16)
[2019-09-26] MEDS ORDERED: MAGNESIUM HYDROXIDE SUSP 30 ML UDC PO PRN (18:16)
[2019-09-26] MEDS ORDERED: ACETAMINOPHEN 325 MG TAB PO PRN (18:16)
[2019-09-26] MEDS ORDERED: NITROGLYCERIN SL 0.4 MG/TAB TAB SL PRN (18:16)
[2019-09-26 18:29] LABS: Influenza A virus by PCR Neg for Influ A (Neg); Influenza B virus by PCR Neg for Influ B (Neg)
[2019-09-26] MEDS ORDERED: ASPIRIN 81 MG ECTAB PO STA (18:31)
--- NOTE | 2019-09-26 18:39 | Electrocardiogram Report ---
Test Reason : Blood Pressure : / mmHG Vent. Rate : 059 BPM Atrial Rate : 059 BPM P-R Int : 168 ms QRS Dur : 102 ms QT Int : 400 ms P-R-T Axes : 001 003 051 degrees QTc Int : 396 ms Sinus bradycardia Inferior infarct (cited on or before 30-DEC-2016) Anterolateral infarct (cited on or before 30-DEC-2016) Abnormal ECG When compared with ECG of 17-OCT-2018 06:12, Nonspecific T wave abnormality no longer evident in Inferior leads T wave inversion no longer evident in Lateral leads Confirmed by Bg Trujillo ([id number]) on 09/26/2019 6:38:50 PM Referred By: REFERRED SELF Confirmed By:Boston Trujillo
[2019-09-26 18:52] LABS: NT Pro B Type Natriuretic Pept 309 pg/ml (0-450); Troponin I < 0.015 ng/ml (0-0.045)
[2019-09-26] MEDS: LORATADINE 10 MG TAB PO SCH (19:55)
[2019-09-26] MEDS ORDERED: ENOXAPARIN INJ 40 MG/0.4 ML SYR SQ SCH (21:00)
[2019-09-26] MEDS: MECLIZINE HCL 25 MG TAB PO SCH (21:26)
[2019-09-27 05:52] LABS: Basophils # (auto) 0.03 K/uL (0-0.2); Basophils % (auto) 0.5 %; Eosinophils # (auto) 0.28 K/uL (0-0.5); Eosinophils % (auto) 4.6 %; Hematocrit (blood only) 42.1 % (42-52); Hemoglobin 14.6 g/dL (14.0-18.0); Immature Granulocytes # (auto) 0.01 K/uL (0.00-0.02); Immature Granulocytes % (auto) 0.2 %; Lymphocytes # (auto) 2.52 K/uL (1.2-3.4); Lymphocytes % (auto) 41.3 %; Mean Corpuscular Hemoglobin 31.8 pg (25-34); Mean Corpuscular Hgb Conc 34.7 g/dL (32-36); Mean Corpuscular Volume 91.7 fL (80-100); Mean Platelet Volume 10.8 fL (7.4-10.4); Monocytes # (auto) 0.63 K/uL (0.11-0.59); Monocytes % (auto) 10.3 %; Neutrophils # (auto) 2.63 K/uL (1.4-6.5); Neutrophils % (auto) 43.1 %; Platelet Count 184 K/uL (130-400); RDW Coefficient of Variation 11.9 % (11.5-14.5); RDW Standard Deviation 40.3 fL (36.4-46.3); Red Blood Count 4.59 M/uL (4.7-6.1)
[2019-09-27 06:23] LABS: Albumin Level 3.9 gm/dl (3.4-5.0); BUN Creatinine Ratio 12.2 (10-20); Calcium 8.8 mg/dl (8.5-10.1); Creatinine Clr Calc Pharmacy 112.3 ml/min; Est GFR (African American) 114.8; Potassium 4.1 mmol/L (3.5-5.1)
[2019-09-27 06:26] LABS: Albumin Globulin Ratio 1.1 (0.9-2); Bilirubin,Total 0.7 mg/dl (0.2-1); Globulin 3.5 gm/dl (2.5-4.0); Total Protein 7.4 gm/dl (6.4-8.2)
[2019-09-27] MEDS: MECLIZINE HCL 25 MG TAB PO SCH ×2 (08:54→13:25)
[2019-09-27] MEDS: LORATADINE 10 MG TAB PO SCH (08:54)
[2019-09-27] MEDS ORDERED: CLOPIDOGREL BISULFATE 75 MG TAB PO SCH (09:00)
[2019-09-27] MEDS ORDERED: ASPIRIN 81 MG ECTAB PO SCH (09:00)
[2019-09-27] MEDS ORDERED: PANTOprazole 40 MG TAB PO SCH ×2 (09:00→12:45)
[2019-09-27] MEDS ORDERED: METOPROLOL SUCC 50MG EXT REL TAB PO SCH (09:00)
[2019-09-27] MEDS ORDERED: ATORVASTATIN 40 MG TAB PO SCH (09:00)
[2019-09-27] MEDS ORDERED: SPIRONOLACTONE 25 MG TAB PO SCH (09:00)
[2019-09-27] MEDS ORDERED: SUCRALFATE 1 GM TAB PO STA (12:35)
--- NOTE | 2019-09-27 14:27 | Magnetic Resonance Report ---
MRI OF THE BRAIN WITHOUT IV CONTRAST CLINICAL HISTORY: Vertigo. COMPARISON STUDY: No priors. TECHNIQUE: MRI of the brain was performed utilizing various T1 and T2-weighted sequences in the axial , sagittal, and coronal planes. IV contrast was not administered for this examination. FINDINGS: Brain parenchyma: The brain parenchyma is normal in appearance. There is no hemorrhage or mass effect . There is no restricted diffusion to suggest acute ischemia. Henning-white matter differentiation is pr eserved. No extra-axial fluid collection is seen. The cerebellar tonsils are normal in configuration. Ventricles, sulci, and cisterns: Normal in configuration. Pituitary and sella: Unremarkable. Intracranial vasculature: Normal flow voids are maintained at the skull base. Orbits: The bony orbits are grossly intact. Orbital contents are normal in appearance. Sinuses and mastoids: There is mild mucosal thickening within the maxillary antra. An air-fluid level is noted on the left. Mild mucosal thickening is also seen in the sphenoid and ethmoid sinuses. The mastoid air cells are well pneumatized. Calvarium: Unremarkable. Cervical cord: Partially visualized cervical spinal cord is normal in morphology and signal intensity . IMPRESSION: No acute abnormality is identified. ACT 112: Negative or not required by law. Electronically signed by: Aron Bateman M.D. 09/27/2019 2:25 PM
--- NOTE | 2019-09-27 15:43 | Discharge Summary ---
Date of Service date of admission - September 26, 2019 date of discharge - September 27, 2019 Admission HPI Per Admitting Provider The patient is a 39 years old male with past medical history of of coronary artery disease with 3 stents placed in 2019 and ejection fraction of 29%, ischemic cardiomyopathy, GERD, dyslipidemia, who presents to the emergency room with a complaint of vertigo since this morning. Patient reports feeling well otherwise. Patient denies any sick contact but he also said that he could be exposed to people who are sick. Patient also reports some chest tightness .First troponin was negative. Patient describes his condition as a room spinning around him. Patient denies fever, chills, chest pain, shortness of breath, abdominal pain, frequency, urgency, headache, runny nose, cough. Labs are reviewed: Sodium 139, potassium 3.8, chloride 107, carbon dioxide 25, anion gap 7, BUN 11, creatinine 0.98, GFR 95.4, glucose 97, calcium 9.6, magnesium 2.4, total bilirubin 0.9, AST 24, ALT 44, alkaline phosphatase 46, troponin 0.015, total protein 8.5, albumin 4.5, globulin 4, TSH 1.33. Urine all normal. Influenza A and B pending. Chest x-ray is shows l lung volumes are normal, lungs are clear, there is no pneumothorax or pleural effusion, cardiac size is stable. Mediastinal contours are normal. There is no evidence of pulmonary edema. Impression no acute cardiopulmonary finding. Patient reports that he had echocardiogram approximately [address] Voss's office, but since it is Sunday after hours we will not be able to obtain that echocardiogram. Patient had Lexiscan stress ECG in September 2018 which showed a low ejection fraction of 29% with akinesis of the base of the apical inferior, basal to apical inferoseptum, mid to apical anteroseptum, mid to apical septum and distal apical inferolateral wall segments. Otherwise global hypokinesis. Abnormal myocardial perfusion study suggesting large LAD and RCA infarcts with meghann- infarct ischemia involving LAD territory with severely reduced LV systolic function. Decision was made to admit patient to PCU on telemetry for further evaluation of chest tightness, and vestibulitis versus benign positional vertigo. Principal Diagnosis peripheral vertigo - MRI brain negative suspected chronic GERD Discharge Exam Constitutional well developed and well nourished; no acute distress Eyes PERRL, conjunctivae normal, anicteric sclerae no nystagmus ENMT Ears: + TM abnormality (serous fluid Left TM; right TM normal ) Respiratory normal respiratory effort, lungs clear to auscultation Cardiovascular Rate/Rhythm: regular rhythm and + bradycardic Heart Sounds: normal S1 and normal S2; no murmur Vessels: posterior tibial pulses present and dorsalis pedis pulses present; no JVD Extremities: no edema Gastrointestinal (Abdomen) normal bowel sounds, soft, nontender, no hepatosplenomegaly Neurologic deep tendon reflexes 2+ bilaterally and moves all extremities; no focal motor deficits Gait: no ataxic gait Coordination: normal [id number] test and normal [id number] test visual [place] full by direct confrontation Psychiatric A+Ox3, euthymic affect Discharge Data Allergies Allergy/AdvReac Type Severity Reaction Status Date / Time No Known Drug Allergies Allergy Verified 09/26/19 14:53 Ordered Studies 1. MRI brain - no acute stroke or other process. 2. echocardiogram - * EF 50% * grade 1 diastolic dysfunction * akinetic mid-distal inferoseptum, mid-distal inferior wall, distal anterior wall and apex * LV function improved in comparison to prior echo Hospital Course (1) Atypical chest pain: The patient's "chest pain" was actually upper abdominal discomfort/high epigastric pain. He had been having this for weeks/months. He admitted to spicy food/hot sauce and alcohol use in the setting of chronic aspirin/plavix use. Troponins x 3 were negative. Echo did not show any new area of hypokinesis (akinesis only). His presenting symptoms were not similar to prior episodes of angina. I gave him carafate liquid on day of discharge which improved his symptoms. I recommended he change his diet, moderate alcohol, and increase his PPI to twice daily. Outpatient GI follow-up recommended for consideration of EGD. (2) Vertigo: Likely acute viral labrynthitis. He had had viral syndrome type symptoms for several days prior to admission. MRI brain negative for stroke. He had no other signs of posterior circulation stroke on exam (no visual field cuts, no ataxia, etc). His vertigo improved with meclizine. Gave him prescription for meclizine at discharge. Advised no driving until symptoms were resolved for at least 24 hours off of the meclizine. (3) GERD (gastroesophageal reflux disease): Increase pantoprazole to 40mg BID and follow-up with GI as outpatient. See discussion above. (4) Ischemic cardiomyopathy: No evidence of ACS while hospitalized. EF on echo was IMPROVED from prior echo. Continue lisinopril 2.5 mg p.o. daily, metoprolol succinate 100 mg p.o. daily, nitroglycerin 0.4 mg sublingual daily as needed, Spironolactone 25 mg p.o. daily, aspirin 81 mg p.o. daily, clopidogrel 75 mg p.o. daily. (5) Dyslipidemia: LDL was 45 on lipid profile. Continue atorvastatin 80 mg p.o. daily. (6) CAD (coronary artery disease): As discussed above in "atypical chest pain" and ischemic cardiomyopathy. Continue all prior outpatient medications. Total Time Total Time Spent Total Time Spent (In Minutes): 45 Total Time Includes: Examination of the Patient, Discharge Planning and Medication Reconciliation Discharge Plan Discharge Items Patient Disposition: Home - Self-Care Reason For Visit: VERTIGO Discharge Diagnosis: 1. vertigo - likely due to viral infection of your inner ear; no evidence of stroke on MRI brain 2. NO evidence of heart attack while here 3. IMPROVED ejection fraction (heart function) on echocardiogram - previously was 30%; now 50% ! Scar tissue from previous heart attack seen. 4. stomach discomforts/pain - likely due to reflux disease, stomach irritation, etc Condition on Discharge: Good Activity: As commented below Activity Comment: light activities until your vertigo has completely resolved Driving/Machine Use: NO DRIVING until you have been off of vertigo medication for minimum 24 hours AND you have had no vertigo for 24 hours Non-emergency contact: Primary Care Provider Call non-emergency contact if: you have any medication questions and your symptoms worsen Follow-up/Referrals: Joseph Turner [Primary Care Provider] - 10/02/19 1:30 pm (see Dr Turner this week to discuss GI referral and to f/u on your vertigo LM @ [id number] WITH FOLLOW-UP APPT AT [facility] WITH DR. TURNER) Diet: Heart Healthy Addtl Attending Provider Instructions: You were treated for vertigo (dizziness/spinning) while hospitalized with meclizine tablets which improved your symptoms. The vertigo was likely due to a viral infection of the inner ear. The viruses that cause this are typically common cold viruses. The natural course of the vertigo is that it usually will resolve over a week or two. Your MRI of the brain did NOT show stroke as the cause of your vertigo. Please take meclizine 25mg every 8 hours as needed for dizziness/vertigo. You may want to take the medication regularly for a few days then switch to as needed after that. Your stomach pain was NOT due to a heart attack. Your blood work for the heart was normal x 3. Your echo showed nice improvement in the overall heart function (see above). I suspect you have stomach irritation from aspirin, plavix, and various things in your diet. Please INCREASE your pantaprazole to 40mg TWICE a day. I would ask your family doctor for a GI referral. You may need an EGD (upper endoscopy). Avoid motrin, ibuprofen, naprosyn, excessive amounts of soda/coffee/tea, and spicy/fried foods. if you drink alcohol please limit such to 1-2 beverages each day. Follow-up - see separate section Return to [facility] if - * you have any symptoms concerning for heart attack OR you have to use your nitroglycerin tablets for chest pain * you have worsening abdominal pain * you have worsening vertigo despite your medication * any other concerns Pending Studies at Discharge: No Stand-Alone Forms: My [facility], Smoking Cessation Medications and DC Order Prescriptions: New meclizine 25 mg Tablet 25 mg PO TID PRN (Reason: Vertigo) Qty: 30 RF: 0 Continued lisinopril [Zestril] 2.5 mg tablet 2.5 mg PO DAILY Qty: 90 RF: 3 atorvastatin [Lipitor] 80 mg tablet 80 mg PO DAILY Qty: 90 RF: 3 spironolactone [Aldactone] 25 mg tablet 25 mg PO DAILY Qty: 90 RF: 3 metoprolol succinate [Toprol XL] 100 mg tablet extended release 24 hr 100 mg PO DAILY Qty: 90 RF: 3 alprazolam 0.25 mg tablet 0.25 mg PO DAILY PRN (Reason: Anxiety) RF: 0 aspirin [Aspir-81] 81 mg Tablet,Delayed Release (Dr/Ec) 81 mg PO DAILY RF: 0 clopidogrel [Plavix] 75 mg tablet 75 mg PO DAILY RF: 0 nitroglycerin [Nitrostat] 0.4 mg Tablet, Sublingual 0.4 mg sublingual UD PRN (Reason: Chest Pain) RF: 0 Changed pantoprazole [Protonix] 40 mg tablet,delayed release (DR/EC) 40 mg PO BID Qty: 60 RF: 1 Discharge Orders: Discharge Order (Routine); Ordered 09/27/19 Ordered By: Herberth Loja/Other Patient Handouts: Inner Ear Balance, Dizziness Vertigo Inner Ear, Dizziness Vertigo Balance Dx Test, Dizziness Vertigo Balance Safety, Meclizine tablets or capsules Admission Data Admit Date/Time: 09/26/19 17:23 Attending Provider: Herberth Rodriguez Admit Provider: Bal Cardenas Primary Care Provider: Joseph Turner Other Providers: Bal Cardenas Other Interventions: Discharge Summary Assessment (RN) Last Done: 09/27/19 15:34 DC Date/Time DO NOT enter until pt leaves facility: 09/27/19 16:11 Coding Level of Care Code 04616 OBS Care - Discharge Diagnoses Atypical chest pain R07.89 Vertigo R42 GERD (gastroesophageal reflux disease) K21.9 Ischemic cardiomyopathy I25.5 Dyslipidemia E78.5 CAD (coronary artery disease) I25.10
== END 2019-09-27 16:11 | disposition home or self-care (01) ==
LOC: 2S 14:03 → ED 14:03 → SUATTDRO 17:23 → 2S 17:45